=== PATIENT | female | born 1990 | race Caucasian/White ===

== ENCOUNTER 2018-07-01 15:56 | Emergency (ER) | payer SELFPAY ==
[2018-07-01 16:09] VITALS: BP 152/81
--- NOTE | 2018-07-01 16:59 | RADIOLOGY REPORT (SQ) ---
EXAM DESCRIPTION: RIBS RIGHT W/PA CHEST COMPLETED DATE/TIME: 07/01/2018 4:51 pm REASON FOR STUDY: pain previous injury COMPARISON: None. TECHNIQUE: Frontal view of the chest and additional views of the right ribs acquired. NUMBER OF VIEWS: Three view. LIMITATIONS: None. FINDINGS: FRONTAL CXR: No pneumothorax. No pleural effusion. No atelectasis or infiltrates. RIBS: No displaced rib fractures. No lytic or blastic bony lesions. OTHER: No other significant finding. IMPRESSION: NO PNEUMOTHORAX. NO DISPLACED RIB FRACTURES. COMMENT: SITE OF TRAUMA/COMPLAINT MARKED/STAMP COMPLETED: YES. TECHNICAL DOCUMENTATION: JOB ID: [id number] [employer]- All Rights Reserved Reading location - IP/workstation name: [email or web address]
[2018-07-01] MEDS ORDERED: IBUPROFEN 600 MG TABLET PO ONE (17:19)
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
== END 2018-07-01 17:29 | disposition home or self-care (01) ==
LOC: ER 15:56
DX: S20.211A Contusion of right front wall of thorax, initial encounter (principal); R07.81 Pleurodynia; R07.1 Chest pain on breathing; Y08.89XA Assault by other specified means, initial encounter
CPT/HCPCS: 99283

== ENCOUNTER 2018-07-05 18:30 | Emergency (ER) | payer SELFPAY ==
[2018-07-05 18:39] VITALS: BP 124/78
[2018-07-05] MEDS ORDERED: CEFTRIAXONE INJ 250 MG VIAL IM ONE (18:59)
[2018-07-05] MEDS ORDERED: DIPH/PERTUSS(ACELL)/TETANUS VAC/PF 0.5 ML SYR (>=10YO) IM ONE (18:59)
[2018-07-05] MEDS ORDERED: PROMETHAZINE HCL 25 MG TABLET PO ONE (19:00)
[2018-07-05] MEDS ORDERED: AZITHROMYCIN 250 MG TABLET PO ONE (19:00)
[2018-07-05] MEDS ORDERED: LIDOCAINE 1% INJ-PF (10 MG/ML) 30 ML SDV INJ ONE (19:01)
--- NOTE | 2018-07-05 19:02 | ER Document Report ---
HPI - HPI Patient complains to provider of: Finger laceration, concern about STD Time Seen by Provider: 07/05/18 18:51 Onset: Just prior to arrival Onset/Duration: Sudden Quality of pain: Achy Pain Level: 4 Context: Patient states she was slicing avocado and accidentally stabbed her left third finger with a knife. Patient denies any difficulty moving the finger. Patient complains of pain to left third finger. Patient also states that her boyfriend recently cheated on her and she would like to be tested for sexually transmitted infections. Patient states that she would only like to be tested through urinalysis testing. Patient declines pelvic or any blood draw at this time. Patient would like prophylactic treatment for gonorrhea and chlamydia. Patient declines testing or treatment for syphilis. Patient denies any vaginal bleeding or discharge. Patient denies any abnormal skin lesions or rashes. Associated Symptoms: Other - Finger laceration. denies: Fever Exacerbated by: Movement Relieved by: Denies Similar symptoms previously: No Recently seen / treated by doctor: No - ROS ROS below otherwise negative: Yes Systems Reviewed and Negative: Yes All other systems reviewed and negative - CONSTITUTIONAL Constitutional: DENIES: Fever, Chills - NEURO Neurology: DENIES: Weakness - GASTROINTESTINAL Gastrointestinal: DENIES: Abdominal Pain, Nausea, Patient vomiting - URINARY Urinary: DENIES: Dysuria - REPRODUCTIVE Reproductive: DENIES: : - MUSCULOSKELETAL Musculoskeletal: REPORTS: Extremity pain - Left third finger. DENIES: Back Pain - DERM Skin Color: Normal Skin Problems: Laceration Past Medical History - General Information source: Patient - Social History Smoking Status: Never Smoker Frequency of alcohol use: None Drug Abuse: None Family History: Reviewed & Not Pertinent Patient has suicidal ideation: No Patient has homicidal ideation: No Renal/ Medical History: Reports: Hx Ectopic . Denies: Hx Peritoneal Dialysis Past Surgical History: Reports: Hx Appendectomy, Hx Gynecologic Surgery - Removal of ectopic , Hx Tubal Ligation Vertical Provider Document - CONSTITUTIONAL Agree With Documented VS: Yes Exam Limitations: No Limitations General Appearance: WD/WN, No Apparent Distress - INFECTION CONTROL TRAVEL OUTSIDE OF THE [place] IN LAST 30 DAYS: No - HEENT HEENT: Atraumatic, Normocephalic - NECK Neck: Normal Inspection, Supple. negative: Lymphadenopathy-Left, Lymphadenopathy-Right - RESPIRATORY Respiratory: Breath Sounds Normal, No Respiratory Distress - CARDIOVASCULAR Cardiovascular: Regular Rate, Regular Rhythm Pulses: Normal: Radial - GI/ABDOMEN Gastrointestinal: Abdomen Soft, Abdomen Non-Tender - BACK Back: Normal Inspection - MUSCULOSKELETAL/EXTREMETIES Musculoskeletal/Extremeties: MAEW, FROM, Tender - Left third finger tenderness - NEURO Level of Consciousness: Awake, Alert, Appropriate Motor/Sensory: No Motor Deficit, No Sensory Deficit - DERM Integumentary: Warm, Dry, Laceration - 3 mm laceration to the proximal phalanx of left third finger. No tendon deficit, no active bleeding. Wound margins approximated Course - Re-evaluation Re-evalutation: 07/05/18 20:50 Patient continues to decline any pelvic examination or laboratory testing. Patient is requesting to be discharged at this time as her uber is waiting outside. Patient without any tendon deficit. Patient encouraged to follow-up with hand specialist for any persistent pain or problems. Patient advised that gonorrhea chlamydia test results are still pending at this time. Patient was treated prophylactically for both gonorrhea and chlamydia. Patient complains of nausea and prefers to receive prescription for Flagyl to treat for possible exposure to trichomonas at this time. Patient advised of UTI and that urine culture is pending. Patient without any fever or flank pain at this time. No concern for pyelonephritis. Patient nontoxic in appearance and stable for discharge. - Vital Signs Vital signs: Temp Pulse Resp BP Pulse Ox 98.3 F 67 18 124/78 98 07/05/18 18:38 07/05/18 18:38 07/05/18 18:38 07/05/18 18:38 07/05/18 18:38 - Laboratory Laboratory results interpreted by me: 07/05/18 20:33 Labs- Entire Visit 07/05/18 19:31 Urine Color YELLOW Urine Appearance SLIGHTLY-CLOUDY Urine pH 6.0 Ur Specific [place] 1.012 Urine Protein NEGATIVE Urine Glucose (UA) NEGATIVE Urine Ketones NEGATIVE Urine Blood NEGATIVE Urine Nitrite NEGATIVE Urine Bilirubin NEGATIVE Urine Urobilinogen NEGATIVE Ur Leukocyte Esterase LARGE H Urine WBC (Auto) 100 Urine RBC (Auto) 2 U Hyaline Cast (Auto) 1 Urine Bacteria (Auto) TRACE Squamous Epi Cells Auto 8 Urine Ascorbic Acid NEGATIVE Urine HCG, Qual NEGATIVE Discharge - Discharge Clinical Impression: Concern about STD in female without diagnosis Finger laceration Qualifiers: Encounter type: initial encounter Finger: middle finger Damage to nail status: without damage Foreign body presence: without foreign body Laterality: left Qualified Code(s): S61.213A - Laceration without foreign body of left middle finger without damage to nail, initial encounter UTI (urinary tract infection) Qualifiers: Urinary tract infection type: site unspecified Hematuria presence: without hematuria Qualified Code(s): N39.0 - Urinary tract infection, site not specified Condition: Stable Disposition: HOME, SELF-CARE Instructions: Cephalexin ([facility]), Non-Sutured Laceration ([facility]), Care of Steri- Strip Closure ([facility]), Tetanus Immunization Given ([facility]), Urinary Anesthetic Agent ([facility]), Urinary Tract Infection ([facility]) Additional Instructions: Return immediately for any new or worsening symptoms Followup with your primary care provider, call tomorrow to make a followup appointment Urine culture is pending, we will call if you need any different treatment. Cultures are pending, we will call if you need any different treatment Safe sex practices If you decide that you would like to be treated tested for HIV or syphilis you can follow-up with the health department or with your primary doctor. Prescriptions: Cephalexin Monohydrate [Keflex 500 mg Capsule] 500 mg PO Q6H 5 Days capsule Metronidazole [Flagyl 500 mg Tablet] 2,000 mg PO ONCE #4 tablet Phenazopyridine HCl [Pyridium 200 mg Tablet] 200 mg PO TID #15 tablet [facility] - Follow up as needed
[2018-07-05] MEDS: ACETAMINOPHEN 325 MG TABLET PO ONE ×2 (19:13→19:22)
[2018-07-05 20:24] LABS: APPEARANCE,URINE SLIGHTLY-CLOUDY; BILIRUBIN,URINE NEGATIVE (NEGATIVE); COLOR,URINE YELLOW; GLUCOSE, URINE NEGATIVE (NEGATIVE); KETONES,URINE NEGATIVE (NEGATIVE); LEUKOCYTE ESTERASE,URINE LARGE (NEGATIVE); NITRITE,URINE NEGATIVE (NEGATIVE); PROTEIN,URINE NEGATIVE (NEGATIVE); URINE SPECIFIC GRAVITY 1.012; UROBILINOGEN,URINE NEGATIVE mg/dL (<2.0)
[2018-07-05] MEDS ORDERED: METRONIDAZOLE 500 MG TABLET PO ONE (20:33)
[2018-07-05 21:39] LABS: CHLAM PCR DETECTED (NOT DETECT); GON PCR DETECTED (NOT DETECT)
== END 2018-07-05 20:46 | disposition home or self-care (01) ==
LOC: ER 18:30
DX: S61.213A Laceration without foreign body of left middle finger without damage to nail, initial encounter (principal); N39.0 Urinary tract infection, site not specified; Z20.2 Contact with and (suspected) exposure to infections with a predominantly sexual mode of transmission; M79.645 Pain in left finger(s); W26.0XXA Contact with knife, initial encounter
CPT/HCPCS: 99283; 96372; 90471; 81025; 81001; 87491; 87591; 90715; J3490; J0696

== ENCOUNTER 2018-08-01 11:43 | Emergency (ER) | payer OTHER ==
[2018-08-01] MEDS ORDERED: KETOROLAC TROMETHAMINE 60 MG/2 ML SDV IM ONE (15:02)
[2018-08-01] MEDS ORDERED: DEXAMETHASONE SOD PHOS INJ 10 MG/1 ML VIAL IM ONE (15:02)
--- NOTE | 2018-08-01 15:03 | ER Document Report ---
HPI - HPI Time Seen by Provider: 08/01/18 13:24 Pain Level: 5 Notes: Patient is a 28-year-old female presenting to the emergency department with complaints of left sided anterior knee pain. She also reports sharp pains shooting from her knee down to her ankle. She denies any direct trauma to the area. She was seen here for the same complaint 2 days ago and encouraged to follow-up with Orth [facility] if not improving. Patient reports she has been taking ibuprofen however she states that does not work for her and she needs something stronger. Patient also states that she did try calling orthopedics and they want $400 to see her and that she would like us to be her follow-up. Patient ambulated into the emergency department with a slow but steady gait. - CONSTITUTIONAL Constitutional: DENIES: Fever, Chills - EENT EENT: DENIES: Sore Throat, Ear Pain, Eye problems - NEURO Neurology: DENIES: Headache, Weakness, Vision blurred, Dizzinesss / Vertigo - CARDIOVASCULAR Cardiovascular: DENIES: Chest pain - RESPIRATORY Respiratory: DENIES: Trouble Breathing, Coughing - GASTROINTESTINAL Gastrointestinal: DENIES: Abdominal Pain, Black / Bloody Stools - URINARY Urinary: DENIES: Dysuria, Urgency, Frequency - REPRODUCTIVE Reproductive: DENIES: :, Postmenopausal, Abnormal bleeding / discharge - MUSCULOSKELETAL Musculoskeletal: REPORTS: Extremity pain - Left knee and foot Past Medical History - General Information source: Patient - Social History Smoking Status: Never Smoker Family History: Reviewed & Not Pertinent Patient has suicidal ideation: No Patient has homicidal ideation: No Renal/ Medical History: Reports: Hx Ectopic . Denies: Hx Peritoneal Dialysis Past Surgical History: Reports: Hx Appendectomy, Hx Gynecologic Surgery - Removal of ectopic , Hx Tubal Ligation Vertical Provider Document - CONSTITUTIONAL Notes: PHYSICAL EXAMINATION: GENERAL: Well-appearing, well-nourished and in no acute distress. HEAD: Atraumatic, normocephalic. EYES: Pupils equal round extraocular movements intact, conjunctiva are normal. ENT: Nares patent NECK: Normal range of motion LUNGS: No respiratory distress Musculoskeletal: Limited range of motion to left knee due to pain however musa schrader is able to fully extend the knee. She has normal pulses in that extremity, normal cap refill and normal sensation distal to her knee. There is slight crepitus felt on palpation of the anterior knee but no obvious deformity, erythema or ecchymosis. There is no swelling. NEUROLOGICAL: Normal speech, normal gait. PSYCH: Normal mood, normal affect. SKIN: Warm, Dry, normal turgor, no rashes or lesions noted. - INFECTION CONTROL TRAVEL OUTSIDE OF THE [place] IN LAST 30 DAYS: No Course - Re-evaluation Re-evalutation: Patient does have some crepitus on palpation of the anterior left knee. There is no obvious trauma to the area there is no erythema, ecchymosis or heat to the area. Unlikely that this is any type of life-threatening etiology such as a septic joint. Patient reports the pain is increased with any movement of her knee so we will place the patient in a knee immobilizer. She was encouraged to follow-up with either orthopedics, [facility] or sports medicine doctor. I did give her several different contacts that she can try to follow-up with. I did also assist her with filling out the paperwork for the critical access hospital. - Vital Signs Vital signs: Temp Pulse Resp BP Pulse Ox 98.1 F 56 L 18 115/71 100 08/01/18 12:15 08/01/18 12:15 08/01/18 12:15 08/01/18 12:15 08/01/18 12:15 Procedures - Immobilization Left leg Pre-Proc Neuro Vasc Exam: Normal Immobilizer type: Crutches, Knee immobilizer Performed by: Provider, PCT Post-Proc Neuro Vasc Exam: Normal Alignment checked and good: Yes Discharge - Discharge Clinical Impression: Left foot pain Left knee pain Qualifiers: Chronicity: acute Qualified Code(s): M25.562 - Pain in left knee Condition: Stable Disposition: HOME, SELF-CARE Instructions: Suspected Internal Knee Injury ([facility]), Knee Immobilizing Splint ([facility]) Additional Instructions: Please take medication as prescribed. Do not take Motrin or ibuprofen while taking this medication. You may safely take acetaminophen or Tylenol with this medication. Ice and elevate your knee. Use the knee immobilizer anytime you have to move around. Use the crutches as discussed. Please follow-up with either orthopedics or the critical access hospital for consideration of an MRI if your pain persists in the knee. We are unable to do an MRI here in the emergency department for this as this is not a life-threatening situation. It is important that you follow-up with either primary care or an field talent qualification specialist. Prescriptions: Ketorolac Tromethamine [Toradol 10 mg Tablet] 10 mg PO Q6HP PRN #20 tablet PRN Reason: Referrals: ARNOLD FAY DO [ACTIVE STAFF] - Follow up as needed [facility] [Outside] - Follow up as needed
[2018-08-01 15:57] VITALS: BP 105/65
== END 2018-08-01 16:08 | disposition home or self-care (01) ==
LOC: ER 11:43
DX: M25.562 Pain in left knee (principal); M25.572 Pain in left ankle and joints of left foot
CPT/HCPCS: 99283; 96372; L1830; J1885; J1100

== ENCOUNTER 2018-09-09 13:37 | Emergency (ER) | payer SELFPAY ==
[2018-09-09] MEDS ORDERED: NORMAL SALINE 1000 ML 1,000 ML IV PRN (14:33)
[2018-09-09] MEDS ORDERED: ONDANSETRON HCL INJ/PF 4 MG/2 ML SDV IV ONE (14:33)
--- NOTE | 2018-09-09 14:39 | ER Document Report ---
Addendum entered and electronically signed by ALFONSO TRAORE PA-C 09/09/18 14:45: Course - Re-evaluation Re-evalutation: 09/09/18 14:44 Pt does not feel 'like herself.' - Vital Signs Vital signs: Temp Pulse Resp BP Pulse Ox 98.1 F 70 20 133/89 H 100 09/09/18 14:09 09/09/18 14:09 09/09/18 14:09 09/09/18 14:09/09/18 14:09 Original Note: ED Medical Screen (RME) - General Chief Complaint: ETOH Abuse Stated Complaint: DIZZINESS Time Seen by Provider: 09/09/18 14:29 TRAVEL OUTSIDE OF THE [place] IN LAST 30 DAYS: No - HPI Notes: 09/09/18 14:34 Patient is a 28-year-old female no significant past medical history who presents complaining of feeling dizzy, nausea/vomiting, migraine headache after drinking about 8 shots of whiskey yesterday. Last drink was around 8 PM last night. Patient has needed some assistance with walking on occasion because of instability. Denies drug allergies or other drug use. Denies fever, neck pain, URI, CP, SOB, Abd pain, dysuria, back pain, or rash. I have treated and performed a rapid initial assessment of this patient. A comprehensive ED assessment and evaluation of the patient, analysis of test results and completion of medical decision making process will be conducted by additional ED providers. PHYSICAL EXAMINATION: GENERAL: Well-appearing, well-nourished and in no acute distress. A&O. Answers questions appropriately. HEAD: Atraumatic, normocephalic. Non-tender. EYES: Pupils equal round and reactive to light, extraocular movements intact, sclera anicteric, conjunctiva are normal. No nystagmus. NECK: Normal range of motion, supple without lymphadenopathy. No rig idity/meningismus. No midline tenderness. LUNGS: Breath sounds clear to auscultation bilaterally and equal. No wheezes rales or rhonchi. HEART: Regular rate and rhythm without murmurs, rubs, gallops. ABDOMEN: Soft, nontender, nondistended abdomen. No guarding, no rebound. Normal bowel sounds present. No CVA tenderness bilaterally. Musculoskeletal: Ext b/l: FROM to passive/active. Strength 5+/5. No deficits noted. Extremities: No cyanosis, clubbing, or edema b/l. Peripheral pulses 2+. Capillary refill less than 2 seconds. NEUROLOGICAL: GCS 15. Cranial nerves grossly intact. Normal speech, slightly ataxic gait. Pronator drift negative. Heel/salazar, finger/nose wnl. PSYCH: flat affect. SKIN: Warm, Dry, normal turgor, no rashes or lesions noted. - Related Data Allergies/Adverse Reactions: No Known Allergies Allergy (Verified 07/30/18 17:46) Past Medical History - Social History Frequency of alcohol use: Social Drug Abuse: None Renal/ Medical History: Reports: Hx Ectopic . Denies: Hx Peritoneal Dialysis Past Surgical History: Reports: Hx Appendectomy, Hx Gynecologic Surgery - Removal of ectopic , Hx Tubal Ligation Physical Exam - Vital signs Vitals: Temp Pulse Resp BP Pulse Ox 98.1 F 70 20 133/89 H 100 09/09/18 14:09 09/09/18 14:09/09/18 14:09/09/18 14:09/09/18 14:09 Course - Vital Signs Vital signs: Temp Pulse Resp BP Pulse Ox 98.1 F 70 20 133/89 H 100 09/09/18 14:09/09/18 14:09/09/18 14:09/09/18 14:09/09/18 14:09
[2018-09-09 15:37] LABS: ABSOLUTE LYMPHOCYTES (AUTO) 2.2 10^3/uL (0.5-4.7); ABSOLUTE MONOCYTES (AUTO) 0.7 10^3/uL (0.1-1.4); ABSOLUTE NEUT (AUTO) 7.5 10^3/uL (1.7-8.2); BASOPHILS % (AUTO) 0.5 % (0-2); EOSINOPHILS % (AUTO) 0.3 % (0-6); HEMATOCRIT 44.6 % (36.0-47.0); HEMOGLOBIN 15.5 g/dL (12.0-15.5); MEAN CORPUSCULAR HEMOGLOBIN 29.9 pg (27.0-33.4); MEAN CORPUSCULAR HGB CONC 34.7 g/dL (32.0-36.0); MEAN CORPUSCULAR VOLUME 86 fl (80-97); PLATELET COUNT 257 10^3/uL (150-450); RED BLOOD COUNT 5.17 10^6/uL (3.72-5.28); RED CELL DISTRIBUTION WIDTH 12.4 % (11.5-14.0); SEGMENTED NEUTROPHILS % (AUTO) 71.2 % (42-78); TOTAL CELLS COUNTED % (AUTO) 100 %; WHITE BLOOD COUNT 10.5 10^3/uL (4.0-10.5)
[2018-09-09 15:47] LABS: APPEARANCE,URINE CLOUDY; BILIRUBIN,URINE NEGATIVE (NEGATIVE); GLUCOSE, URINE NEGATIVE (NEGATIVE); KETONES,URINE 20 mg/dL (NEGATIVE); LEUKOCYTE ESTERASE,URINE TRACE (NEGATIVE); NITRITE,URINE NEGATIVE (NEGATIVE); PROTEIN,URINE NEGATIVE (NEGATIVE); URINE SPECIFIC GRAVITY 1.025; UROBILINOGEN,URINE NEGATIVE mg/dL (<2.0)
[2018-09-09 15:48] LABS: COLOR,URINE YELLOW
[2018-09-09 15:58] LABS: ALANINE AMINOTRANSFERASE 23 U/L (9-52); ALBUMIN 5.1 g/dL (3.5-5.0); ALKALINE PHOSPHATASE 120 U/L (38-126); ANION GAP 14 (5-19); ASPARTATE AMINO TRANSFERASE 30 U/L (14-36); BILIRUBIN,DIRECT 0.2 mg/dL (0.0-0.4); BILIRUBIN,TOTAL 0.7 mg/dL (0.2-1.3); BLOOD UREA NITROGEN 21 mg/dL (7-20); CALCIUM 10.2 mg/dL (8.4-10.2); CARBON DIOXIDE 27 mmol/L (22-30); CHLORIDE 102 mmol/L (98-107); LIPASE 41.4 U/L (23-300); POTASSIUM 4.9 mmol/L (3.6-5.0); SODIUM 142.5 mmol/L (137-145); TOTAL PROTEIN 8.3 g/dL (6.3-8.2)
[2018-09-09 16:03] LABS: ALCOHOL < 10 mg/dL (NONE DETECTED)
[2018-09-09 16:04] LABS: GLUCOSE 69 mg/dL (75-110)
[2018-09-09 16:33] VITALS: BP 114/65
[2018-09-09] MEDS ORDERED: ONDANSETRON 4 MG TAB.RAPDIS PO ONE (16:36)
--- NOTE | 2018-09-09 17:26 | ER Document Report ---
ED General - General Chief Complaint: ETOH Abuse Stated Complaint: DIZZINESS Time Seen by Provider: 09/09/18 14:29 TRAVEL OUTSIDE OF THE [place] IN LAST 30 DAYS: No - HPI Notes: Patient is a 28-year-old female who presents to the emergency department for evaluation. She states that last night she "chugged" some whiskey. She states she was just depressed. She denies that she was suicidal. She denies any homicidal ideation. She denies any visual or auditory nation. She states that "something stressful" happened about a year ago and she is still depressed from it. She admits to a history of self-injurious behavior. She states that 3 weeks ago she cut her left forearm again. At this time she states she does not want any further psychiatric help. She states that she has a support system. She does admit to a headache, and just "not feeling myself." She was alone while she was drinking. - Related Data Allergies/Adverse Reactions: No Known Allergies Allergy (Verified 07/30/18 17:46) Past Medical History - General Information source: Patient - Social History Smoking Status: Current Every Day Smoker Frequency of alcohol use: Social Drug Abuse: None Family History: Reviewed & Not Pertinent Patient has suicidal ideation: No Patient has homicidal ideation: No Renal/ Medical History: Reports: Hx Ectopic . Denies: Hx Peritoneal Dialysis Past Surgical History: Reports: Hx Appendectomy, Hx Gynecologic Surgery - Removal of ectopic , Hx Tubal Ligation Review of Systems - Review of Systems Constitutional: No symptoms reported EENT: No symptoms reported Cardiovascular: No symptoms reported Respiratory: No symptoms reported Gastrointestinal: See HPI Genitourinary: No symptoms reported Female Genitourinary: No symptoms reported Musculoskeletal: No symptoms reported Skin: No symptoms reported Neurological/Psychological: See HPI Physical Exam - Vital signs Vitals: Temp Pulse Resp BP Pulse Ox 98.1 F 70 20 133/89 H 100 09/09/18 14:09/09/18 14:09/09/18 14:09/09/18 14:09/09/18 14:09 - Notes Notes: Vital signs reviewed, please refer to chart. Head is normocephalic, atraumatic. Pupils equal round, reactive to light. Neck is supple without meningismus. Heart is regular rate and rhythm. Lungs are clear to auscultation bilaterally. Abdomen is soft, nontender, normoactive bowel sounds throughout. Extremities without cyanosis, clubbing. Posterior calves are nontender. Peripheral pulses are equal. Skin is warm and dry. She does have a linear, self-inflicted superficial lacerations to the left forearm. There are well-healing, no signs of dehiscence or infection. Patient is awake, alert, oriented x3. Cranial nerves II - XII are grossly intact without focal neurological deficits. Strength is plus 5 out of 5 bilateral lower extremities. Sensation is intact. Reflexes symmetrical. Intact [id number], rapid altering movements, [id number]. Course - Re-evaluation Re-evalutation: 09/09/18 17:17 Patient presents to the emergency department for evaluation after a heavy night of drinking. She states she has a headache, has been nauseous and vomiting, just does not feel herself. She admits to depression. She denies any suicidality. I do not believe she meets any criteria for inpatient hospitalization at this time. I will can refer her to outpatient. Unfortunately her IV did infiltrate, but she was feeling significantly improved after a small amount of fluids. She is given a paper with outpatient referrals for mental health. We will send her home with Jose as well. She is to return the emergency department with worsening or new concerning symptoms of any sort. - Vital Signs Vital signs: Temp Pulse Resp BP Pulse Ox 98.1 F 75 20 114/65 100 09/09/18 14:09 09/09/18 16:31 09/09/18 14:09 09/09/18 16:31 09/09/18 14:09 - Laboratory Result Diagrams: 09/09/18 15:17 09/09/18 15:17 Laboratory results interpreted by me: 09/09/18 09/09/18 15:17 15:17 BUN 21 H Glucose 69 L Total Protein 8.3 H Albumin 5.1 H Urine Ketones 20 H Urine Blood LARGE H Ur Leukocyte Esterase TRACE H Discharge - Discharge Clinical Impression: Alcohol abuse Depression Qualifiers: Depression Type: major depressive disorder Major depression recurrence: recurrent Active/Remission status: currently active Major depression episode severity: moderate Qualified Code(s): F33.1 - Major depressive disorder, recurrent, moderate Nausea & vomiting Qualifiers: Vomiting Intractability: non-intractable Condition: Stable Disposition: HOME, SELF-CARE Instructions: Antinausea Medication ([facility]), Intravenous (IV) Fluids ([facility]) Additional Instructions: Rest and stay well-hydrated. Consider follow-up with 1 of the outpatient mental health services in the community. Zofran as needed for nausea. If you develop worsening or new concerning symptoms of any sort, return immediately to the emergency department for reevaluation.
[2018-09-09 17:34] LABS: URINE AMPHETAMINES SCREEN NEGATIVE; URINE BARBITURATES SCREEN NEGATIVE; URINE BENZODIAZEPINES SCREEN NEGATIVE; URINE COCAINE SCREEN NEGATIVE; URINE MARIJUANA (THC) SCREEN NEGATIVE; URINE METHADONE SCREEN NEGATIVE; URINE PHENCYCLIDINE SCREEN NEGATIVE
== END 2018-09-09 20:08 | disposition home or self-care (01) ==
LOC: ER 13:37
DX: F10.10 Alcohol abuse, uncomplicated (principal); F33.1 Major depressive disorder, recurrent, moderate; S51.812A Laceration without foreign body of left forearm, initial encounter; X78.9XXA Intentional self-harm by unspecified sharp object, initial encounter; R51 Headache; R11.2 Nausea with vomiting, unspecified; F17.200 Nicotine dependence, unspecified, uncomplicated
CPT/HCPCS: 99283; 96361; 96374; 36415; 80307 ×2; 83690; 83735; 85025; 81025; 80053; 81001; S0119; J2405; J7030

== ENCOUNTER 2018-09-14 11:30 | Emergency (ER) | payer SELFPAY ==
--- NOTE | 2018-09-14 13:18 | ER Document Report ---
ED General - General Chief Complaint: Neck Swelling Stated Complaint: SORE THROAT, SWELLING Time Seen by Provider: 09/14/18 12:06 Notes: 28-year-old female with probable depression presents the emergency department with chief complaint of tender anterior cervical lymph nodes bilateral and right upper quadrant pain. She said the lymph nodes started after her binge drinking this past weekend where she was seen here. Also, the right upper quadrant pain started over the last day and a half. She denies fevers or chills, denies nausea or vomiting, denies diarrhea or constipation. She denies shortness of breath or chest pain. She says her appetite is been normal. She states that the painful lymph nodes are severe and is radiating into her bilateral ears. She describes the right upper quadrant pain as an intense burning. No other co mplaints. TRAVEL OUTSIDE OF THE [place] IN LAST 30 DAYS: No - Related Data Allergies/Adverse Reactions: No Known Allergies Allergy (Verified 07/30/18 17:46) Past Medical History - Social History Smoking Status: Unknown if Ever Smoked Chew tobacco use (# tins/day): No Frequency of alcohol use: Social Drug Abuse: None Family History: Reviewed & Not Pertinent Patient has suicidal ideation: No Patient has homicidal ideation: No Renal/ Medical History: Reports: Hx Ectopic . Denies: Hx Peritoneal Dialysis Past Surgical History: Reports: Hx Appendectomy, Hx Gynecologic Surgery - Removal of ectopic , Hx Tubal Ligation Review of Systems - Review of Systems Constitutional: See HPI EENT: See HPI Cardiovascular: See HPI Respiratory: See HPI Gastrointestinal: See HPI Genitourinary: See HPI Female Genitourinary: No symptoms reported Musculoskeletal: No symptoms reported Skin: No symptoms reported Hematologic/Lymphatic: No symptoms reported Neurological/Psychological: No symptoms reported Physical Exam - Vital signs Vitals: Temp Pulse Resp BP Pulse Ox 98.2 F 72 12 103/66 100 09/14/18 11:34 09/14/18 11:34 09/14/18 11:34 09/14/18 11:34 09/14/18 11:34 - Notes Notes: PHYSICAL EXAMINATION: Reviewed vital signs and charting by RN GENERAL: Alert, interacts well. No acute distress. HEAD: Normocephalic, atraumatic. EYES: Pupils equal and round. Extraocular movements intact. ENT: Oral mucosa moist, tongue midline. NECK: Full range of motion. Trachea midline. LUNGS: Clear to auscultation bilaterally, no wheezes, rales, or rhonchi. No respiratory distress. HEART: Regular rate and rhythm. No murmur ABDOMEN: soft, right upper quadrant tenderness to palpation, positive Henson sign. No distention. Bowel sounds present EXTREMITIES: Moves all 4 extremities spontaneously. No edema, No cyanosis. PSYCH: Normal affect, normal mood. SKIN: Warm, dry, normal turgor. No rashes or lesions noted. Course - Re-evaluation Re-evalutation: 09/14/18 13:18 Overall well-appearing but patient does have significant anterior cervical lym phadenopathy bilateral and 2+ tonsillar hypertrophy with erythema. She also has a positive Hesnon sign so I will initiate a basic work-up and get a right upper quadrant ultrasound with a Monospot added to the strep and labs. 09/14/18 14:29 Patient has a positive rapid strep. Presentation of several days of sore throat in an otherwise well-appearing patient. History and exam are not consistent with a retropharyngeal abscess or peritonsillar abscess. Airway is patent. No difficulty handling oral secretions. Vitals within normal limits. Patient has been treated with an IM dose of penicillin. At this time will discharge with return precautions and follow-up recommendations. Verbal discharge instructions given a the bedside and opportunity for questions given. Medication warnings reviewed. Patient is in agreement with this plan and has verbalized understanding of return precautions and the need for primary care follow-up in the next 7 days. 09/14/18 14:31 - Vital Signs Vital signs: Temp Pulse Resp BP Pulse Ox 98.2 F 72 12 103/66 100 09/14/18 11:34 09/14/18 11:34 09/14/18 11:34 09/14/18 11:34 09/14/18 11:34 - Laboratory Result Diagrams: 09/14/18 13:20 09/14/18 13:20 Discharge - Discharge Clinical Impression: Streptococcal pharyngitis Condition: Good Disposition: HOME, SELF-CARE Additional Instructions: You have been diagnosed with strep throat based on a positive strep test. You have been treated with a dose of penicillin here in the emergency department and do not need any additional antibiotics. You have also been given a dose of steroids to help with your throat discomfort. Please continue to take ibuprofen 600 mg every 6 hours or Tylenol 1000 mg every 6 hours as needed for throat discomfort. You can also gargle with salt water. Continue to drink plenty of fluids. Follow-up with your primary care doctor in the next several days. Return if you become unable to swallow, have difficulty breathing, pass out, have persistent vomiting that prevents you from being able to tolerate fluids, or have any other symptoms that are concerning to you.
[2018-09-14 13:27] LABS: ABSOLUTE BASOPHILS # (AUTO) 0.1 10^3/uL (0.0-0.2); ABSOLUTE EOSINOPHILS # (AUTO) 0.1 10^3/uL (0.0-0.6); ABSOLUTE LYMPHOCYTES (AUTO) 2.1 10^3/uL (0.5-4.7); ABSOLUTE MONOCYTES (AUTO) 0.9 10^3/uL (0.1-1.4); ABSOLUTE NEUT (AUTO) 6.5 10^3/uL (1.7-8.2); BASOPHILS % (AUTO) 0.6 % (0-2); EOSINOPHILS % (AUTO) 1.1 % (0-6); HEMATOCRIT 38.1 % (36.0-47.0); HEMOGLOBIN 13.3 g/dL (12.0-15.5); LYMPHOCYTES % (AUTO) 21.8 % (13-45); MEAN CORPUSCULAR HGB CONC 34.9 g/dL (32.0-36.0); MEAN CORPUSCULAR VOLUME 86 fl (80-97); MONOCYTES % (AUTO) 9.4 % (3-13); PLATELET COUNT 253 10^3/uL (150-450); RED BLOOD COUNT 4.43 10^6/uL (3.72-5.28); RED CELL DISTRIBUTION WIDTH 12.2 % (11.5-14.0); SEGMENTED NEUTROPHILS % (AUTO) 67.1 % (42-78); TOTAL CELLS COUNTED % (AUTO) 100 %; WHITE BLOOD COUNT 9.7 10^3/uL (4.0-10.5)
[2018-09-14 13:44] LABS: ALANINE AMINOTRANSFERASE 19 U/L (9-52); ALBUMIN 4.1 g/dL (3.5-5.0); ALKALINE PHOSPHATASE 98 U/L (38-126); ANION GAP 10 (5-19); ASPARTATE AMINO TRANSFERASE 23 U/L (14-36); BILIRUBIN,DIRECT 0.2 mg/dL (0.0-0.4); BILIRUBIN,TOTAL 0.3 mg/dL (0.2-1.3); BLOOD UREA NITROGEN 7 mg/dL (7-20); CALCIUM 9.6 mg/dL (8.4-10.2); CARBON DIOXIDE 28 mmol/L (22-30); CHLORIDE 103 mmol/L (98-107); GLUCOSE 84 mg/dL (75-110); POTASSIUM 4.6 mmol/L (3.6-5.0); SODIUM 140.5 mmol/L (137-145); TOTAL PROTEIN 6.9 g/dL (6.3-8.2)
--- NOTE | 2018-09-14 15:08 | RADIOLOGY REPORT (SQ) ---
EXAM DESCRIPTION: U/S ABDOMEN LTD W/DOPPLER COMPLETED DATE/TIME: 09/14/2018 3:00 pm REASON FOR STUDY: RUQ pain COMPARISON: None. TECHNIQUE: Dynamic and static grayscale images acquired of the abdomen and recorded on PACS. Additio nal selected color Doppler and spectral images recorded. LIMITATIONS: None. FINDINGS: PANCREAS: No masses. Visualized pancreatic duct normal caliber. LIVER: Normal size Echo texture normal. No focal masses. LIVER VASCULATURE: Normal directional flow of the main portal vein and hepatic veins. GALLBLADDER: No stones. Normal wall thickness. No pericholecystic fluid. ULTRASOUND-DETECTED FERRER'S SIGN: Negative. INTRAHEPATIC DUCTS AND COMMON DUCT: CBD and intrahepatic ducts normal caliber. No filling defects. INFERIOR VENA CAVA: Normal flow. AORTA: No aneurysm. RIGHT KIDNEY: Normal size. Normal echogenicity. No solid or suspicious masses. No hydronephros is. No calcifications. PERITONEAL AND RIGHT PLEURAL SPACE: No ascites or effusions. OTHER: No other significant findings. IMPRESSION: NORMAL RIGHT UPPER QUADRANT ULTRASOUND VISUALIZED. TECHNICAL DOCUMENTATION: JOB ID: [id number] [employer]- All Rights Reserved Reading location - IP/workstation name: [email or web address]
[2018-09-14] MEDS ORDERED: NYSTATIN/DEXAMETH/DIPHEN SUSP 120 ML PO ONE (15:16)
[2018-09-14] MEDS ORDERED: PENICILLIN G BENZATHINE 1.2 MILLION UNIT/2 ML DISP.SYRIN IM ONE (15:16)
[2018-09-14] MEDS ORDERED: DEXAMETHASONE SOD PHOS INJ 10 MG/1 ML VIAL IM ONE (15:16)
[2018-09-14 16:01] VITALS: BP 109/65
== END 2018-09-14 16:01 | disposition home or self-care (01) ==
LOC: ER 11:30
DX: J02.0 Streptococcal pharyngitis (principal); R10.11 Right upper quadrant pain; R10.811 Right upper quadrant abdominal tenderness; Z90.49 Acquired absence of other specified parts of digestive tract; Z87.59 Personal history of other complications of pregnancy, childbirth and the puerperium; Z98.51 Tubal ligation status
CPT/HCPCS: 99283; 96372; 36415; 87880; 85025; 86308; 80053; 76705; 93976; J0561; J1100; J3490

== ENCOUNTER 2018-09-22 16:45 | Emergency (ER) | payer SELFPAY ==
--- NOTE | 2018-09-22 17:58 | ER Document Report ---
ED Medical Screen (RME) - General Chief Complaint: Abdominal Pain Stated Complaint: RIGHT SIDE PAIN Time Seen by Provider: 09/22/18 17:54 Notes: 28-year-old female presents to the emergency department with chief complaint of right flank pain since yesterday. She states pain came on abruptly and is stabbing in nature, it radiates to what appears to be the right hypochondriac in the right lumbar quadrants of the abdomen. She had a T-max of 101.4 at home earlier today, current temp 99. She has associated nausea that started today and is persisting. Denies any recent illness. Also complains of urinary frequency, dysuria, urgency. Denies shortness of breath or chest pain. Denies any abnormal vaginal discharge. Denies diarrhea or constipation. No other complaints. I have greeted and performed a rapid initial assessment of this patient. A comprehensive ED assessment and evaluation of the patient, analysis of test results and completion of medical decision making process will be conducted by an additional ED providers. TRAVEL OUTSIDE OF THE [place] IN LAST 30 DAYS: No - Related Data Allergies/Adverse Reactions: No Known Allergies Allergy (Verified 09/22/18 16:47) Past Medical History Renal/ Medical History: Reports: Hx Ectopic . Denies: Hx Peritoneal Dialysis Past Surgical History: Reports: Hx Appendectomy, Hx Gynecologic Surgery - Removal of ectopic , Hx Tubal Ligation Physical Exam - Vital signs Vitals: Temp Pulse Resp BP Pulse Ox 99 F 90 18 128/75 H 97 09/22/18 16:50 09/22/18 16:50 09/22/18 16:50 09/22/18 16:50 09/22/18 16:50 - Notes Notes: PHYSICAL EXAMINATION: Reviewed vital signs and charting by RN GENERAL: Alert, interacts well. No acute distress. HEAD: Normocephalic, atraumatic. EYES: Pupils equal and round. Extraocular movements intact. ENT: Oral mucosa moist, tongue midline. NECK: Full range of motion. Trachea midline. LUNGS: Clear to auscultation bilaterally, no wheezes, rales, or rhonchi. No respiratory distress. HEART: Regular rate and rhythm. No murmur ABDOMEN: Examination limited in triage room patient with right-sided tenderness to palpation BACK: Right CVAT EXTREMITIES: Moves all 4 extremities spontaneously. No edema, No cyanosis. PSYCH: Normal affect, normal mood. SKIN: Warm, dry, normal turgor. No rashes or lesions noted. Course - Vital Signs Vital signs: Temp Pulse Resp BP Pulse Ox 99 F 90 18 128/75 H 97 09/22/18 16:50 09/22/18 16:50 09/22/18 16:50 09/22/18 16:50 09/22/18 16:50
[2018-09-22] MEDS ORDERED: ONDANSETRON HCL INJ/PF 4 MG/2 ML SDV IV ONE (17:59)
[2018-09-22] MEDS ORDERED: ACETAMINOPHEN 325 MG TABLET PO ONE (17:59)
[2018-09-22 19:00] LABS: ABSOLUTE LYMPHOCYTES (AUTO) 1.4 10^3/uL (0.5-4.7); ABSOLUTE NEUT (AUTO) 13.9 10^3/uL (1.7-8.2); BASOPHILS % (AUTO) 0.2 % (0-2); EOSINOPHILS % (AUTO) 0.2 % (0-6); HEMOGLOBIN 14.8 g/dL (12.0-15.5); LYMPHOCYTES % (AUTO) 8.5 % (13-45); MEAN CORPUSCULAR HEMOGLOBIN 29.4 pg (27.0-33.4); MEAN CORPUSCULAR HGB CONC 34.5 g/dL (32.0-36.0); MEAN CORPUSCULAR VOLUME 85 fl (80-97); MONOCYTES % (AUTO) 6.1 % (3-13); PLATELET COUNT 276 10^3/uL (150-450); RED BLOOD COUNT 5.05 10^6/uL (3.72-5.28); RED CELL DISTRIBUTION WIDTH 12.4 % (11.5-14.0); TOTAL CELLS COUNTED % (AUTO) 100 %; WHITE BLOOD COUNT 16.3 10^3/uL (4.0-10.5)
[2018-09-22 19:09] LABS: AMORPHOUS SEDIMENT,URINE TRACE /HPF; APPEARANCE,URINE CLOUDY; BILIRUBIN,URINE NEGATIVE (NEGATIVE); COLOR,URINE YELLOW; GLUCOSE, URINE NEGATIVE (NEGATIVE); KETONES,URINE NEGATIVE (NEGATIVE); LEUKOCYTE ESTERASE,URINE MODERATE (NEGATIVE); NITRITE,URINE POSITIVE (NEGATIVE); PROTEIN,URINE NEGATIVE (NEGATIVE); URINE SPECIFIC GRAVITY 1.016; UROBILINOGEN,URINE NEGATIVE mg/dL (<2.0)
[2018-09-22 19:15] LABS: ALANINE AMINOTRANSFERASE 20 U/L (9-52); ALBUMIN 4.8 g/dL (3.5-5.0); ALKALINE PHOSPHATASE 100 U/L (38-126); ANION GAP 10 (5-19); ASPARTATE AMINO TRANSFERASE 22 U/L (14-36); BILIRUBIN,DIRECT 0.2 mg/dL (0.0-0.4); BILIRUBIN,TOTAL 0.9 mg/dL (0.2-1.3); BLOOD UREA NITROGEN 12 mg/dL (7-20); CALCIUM 9.9 mg/dL (8.4-10.2); CARBON DIOXIDE 28 mmol/L (22-30); CHLORIDE 101 mmol/L (98-107); GLUCOSE 87 mg/dL (75-110); LIPASE 45.7 U/L (23-300); POTASSIUM 4.4 mmol/L (3.6-5.0); TOTAL PROTEIN 7.7 g/dL (6.3-8.2)
[2018-09-22] MEDS ORDERED: NORMAL SALINE 1000 ML 1,000 ML IV ONE (21:40)
[2018-09-22] MEDS ORDERED: KETOROLAC TROMETHAMINE INJ/PF 30 MG/1 ML SDV IV ONE (21:40)
[2018-09-22] MEDS ORDERED: LIDOCAINE 5% (700 MG) TRANSDERMAL ADH..PATCH TP ONE (21:40)
[2018-09-22] MEDS: FENTANYL CITRATE INJ/PF 100 MCG/2 ML AMPUL IV PRN (21:52)
--- NOTE | 2018-09-22 22:09 | ER Document Report ---
ED General - General Chief Complaint: Abdominal Pain Stated Complaint: RIGHT SIDE PAIN Time Seen by Provider: 09/22/18 17:54 Notes: Patient is a 28-year-old female without chronic medical problems, no prior abdominal surgical presents with complaints of 24 hours of progressively worsening right upper abdominal and right flank pain as well as pain in her right lower ribs. Describes the pain is being a throbbing, aching, constant pain. Worsened by breathing, coughing or touching the area. Nothing improves the pain. No history of similar symptoms in the past. Regards symptoms as being moderate to severe. Has had subjective fever, nausea but no vomiting. Notes urinary frequency but no dysuria. Has not seen her primary care physician regarding today's concerns. Denies associated shortness of breath, headache, neck pain or confusion. TRAVEL OUTSIDE OF THE [place] IN LAST 30 DAYS: No - Related Data Allergies/Adverse Reactions: No Known Allergies Allergy (Verified 09/22/18 16:47) Past Medical History - General Information source: Patient - Social History Smoking Status: Never Smoker Frequency of alcohol use: None Drug Abuse: None Lives with: Spouse/Significant other Family History: Reviewed & Not Pertinent Patient has suicidal ideation: No Patient has homicidal ideation: No Renal/ Medical History: Reports: Hx Ectopic . Denies: Hx Peritoneal Dialysis Past Surgical History: Reports: Hx Appendectomy, Hx Gynecologic Surgery - Removal of ectopic , Hx Tubal Ligation Review of Systems - Review of Systems Notes: Constitutional: Negative for fever. HENT: Negative for sore throat. Eyes: Negative for visual changes. Cardiovascular: Negative for chest pain. Respiratory: Negative for shortness of breath. Gastrointestinal: Positive for upper abdominal pain, right flank pain, nausea Genitourinary: Negative for dysuria. Musculoskeletal: Negative for back pain. Skin: Negative for rash. Neurological: Negative for headaches, weakness or numbness. 10 point ROS negative except as marked above and in HPI. Physical Exam - Vital signs Vitals: Temp Pulse Resp BP Pulse Ox 99 F 90 18 128/75 H 97 09/22/18 16:50 09/22/18 16:50 09/22/18 16:50 09/22/18 16:50 09/22/18 16:50 Interpretation: Normal Notes: PHYSICAL EXAMINATION: GENERAL: Appears moderately uncomfortable but in no acute distress HEAD: Atraumatic, normocephalic. EYES: Pupils equal round and reactive to light, extraocular movements intact, sclera anicteric, conjunctiva are normal. ENT: nares patent, oropharynx clear without exudates. Moist mucous membranes. NECK: Normal range of motion, supple without lymphadenopathy LUNGS: Breath sounds clear to auscultation bilaterally and equal. No wheezes rales or rhonchi. HEART: Regular rate and rhythm without murmurs ABDOMEN: Soft, mild right upper quadrant and right flank tenderness. No localized areas of abdominal tenderness., normoactive bowel sounds. No guarding, no rebound. No masses appreciated. EXTREMITIES: Normal range of motion, no pitting or edema. No cyanosis. NEUROLOGICAL: No focal neurological deficits. Moves all extremities spontaneously and on command. PSYCH: Normal mood, normal affect. SKIN: Warm, Dry, normal turgor, no rashes or lesions noted. Course - Re-evaluation Re-evalutation: 09/22/18 22:07 Patient presents with right upper quadrant abdominal pain and right lower rib pain. States the pain is worsened by coughing and breathing. States the pain started this morning in conjunction with a cough. On abdominal exam she does have focal right upper quadrant abdominal tenderness although no positive Henson sign. She has no right CVA tenderness. Has some focal tenderness of the right lower rib spaces and does note pleuritic discomfort. She is PERC criteria negative but given that her pain is in the right costophrenic angle and that she was complaining of pleuritic component d-dimer was sent and is noted to be normal. Will not pursue CTA of the chest at this point. Right upper quadrant ultrasound is likewise pending, chest x-ray pending. Labs show nonspecific leukocytosis, urinalysis is grossly contaminated but does show positive leuk esterase and elevated white blood cell count. Pyonephritis could certainly be the cause of patient's presentation but I believe biliary pathology likewise needs to be excluded as well as a right lower lobe pneumonia given the cough and lower rib pain. 09/22/18 23:29 Right upper quadrant abdominal ultrasound is unremarkable. Chest x-ray unremarkable. D-dimer likewise negative.. Patient will be treated as a case of pyelonephritis given lack of alternative etiology. IV subtraction has been administered. Will be discharged on cephalexin. At this time will discharge with return precautions and follow-up recommendations. Verbal discharge i nstructions given a the bedside and opportunity for questions given. Medication warnings reviewed. Patient is in agreement with this plan and has verbalized understanding of return precautions and the need for primary care follow-up in the next 24-72 hours. - Vital Signs Vital signs: Temp Pulse Resp BP Pulse Ox 101.2 F H 90 16 103/60 100 09/23/18 01:58 09/23/18 01:58 09/23/18 01:58 09/23/18 01:58 09/23/18 01:58 - Laboratory Result Diagrams: 09/22/18 18:34 09/22/18 18:34 Laboratory results interpreted by me: 09/22/18 09/22/18 18:34 18:34 WBC 16.3 H Seg Neutrophils % 85.0 H Lymphocytes % 8.5 L Absolute Neutrophils 13.9 H Urine Nitrite POSITIVE H Ur Leukocyte Esterase MODERATE H - Diagnostic Test Radiology reviewed: Image reviewed, Reports reviewed Radiology results interpreted by me: 09/22/18 23:29 Chest x-ray: No acute infiltrate or pneumothorax Discharge - Discharge Clinical Impression: Right flank pain, Pyelonephritis Condition: Good Disposition: HOME, SELF-CARE Additional Instructions: You have been diagnosed with a condition called pyelonephritis which is an infection involving your kidneys and bladder. You have been given a dose of antibiotics here in the emergency department to help begin to treat this infection. Your also being sent home on antibiotics. Please start taking these later on today when you fill the prescription. Complete the course even if you feel better. Please return if you have persistent vomiting, pass out, have worsening pain, become unable to tolerate fluids, or have any other symptoms that are concerning to you. Please follow-up with your primary care physician in the next 24-48 hours. Prescriptions: Cephalexin Monohydrate [Keflex 500 mg Capsule] 500 mg PO Q6H 7 Days capsule
--- NOTE | 2018-09-22 22:49 | RADIOLOGY REPORT (SQ) ---
EXAM DESCRIPTION: [facility]: US ABDOMEN LIMITED CLINICAL HISTORY: 28 years Female; ruq pain TECHNIQUE: Right upper quadrant ultrasound was performed. COMPARISON: 09/14/2018 FINDINGS: Pancreas: Visualized portions are unremarkable. Liver: 14 cm long Portal venous flow is hepatopedal, normal. Gallbladder: normal with no gallstones or sonographic evidence for acute cholecystitis. No pericholecystic fluid. No sonographic Henson's sign. Common bile duct: 2 mm. Right kidney: 9.1 x 4.5 x 5 cm. No hydronephrosis. Visualized portions of aorta and IVC are unremarkable IMPRESSION: 1. Normal right upper quadrant ultrasound.
--- NOTE | 2018-09-22 23:02 | RADIOLOGY REPORT (SQ) ---
EXAM DESCRIPTION: XR CHEST 1 VIEW COMPLETED DATE/TME: 09/22/2018 22:07 CLINICAL HISTORY: 28 years, Female, Right lower rib pain, cough COMPARISON: Prior study from 07/01/2018. NUMBER OF VIEWS: One TECHNIQUE: Single frontal view of the chest was obtained. LIMITATIONS: None. FINDINGS: Cardiac and mediastinal contours are normal in appearance. Lungs are clear. No pleural effusion or pneumothorax. IMPRESSION: No acute disease. copyright 2010 [employer]- All Rights Reserved
[2018-09-22] MEDS ORDERED: CEFTRIAXONE INJ 1000 MG VIAL IV ONE (23:30)
[2018-09-23] MEDS: FENTANYL CITRATE INJ/PF 100 MCG/2 ML AMPUL IV PRN (00:50)
[2018-09-23] MEDS ORDERED: IBUPROFEN 600 MG TABLET PO ONE (01:59)
[2018-09-23 02:00] VITALS: BP 103/60
== END 2018-09-23 02:11 | disposition home or self-care (01) ==
LOC: ER 16:45
DX: R10.11 Right upper quadrant pain (principal); R10.9 Unspecified abdominal pain; R07.81 Pleurodynia; N12 Tubulo-interstitial nephritis, not specified as acute or chronic; R10.811 Right upper quadrant abdominal tenderness; R10.819 Abdominal tenderness, unspecified site; R11.0 Nausea; R35.0 Frequency of micturition; Z98.51 Tubal ligation status; Z87.59 Personal history of other complications of pregnancy, childbirth and the puerperium; Z90.49 Acquired absence of other specified parts of digestive tract
CPT/HCPCS: 99284; 96361; 96375; 96365; 36415; 87086; 83690; 85025; 81025; 87088; 80053; 81001; 87186; 85379; 71045; 76705; J3010 ×2; J1885; J0696; J2405; J7030

== ENCOUNTER 2018-09-23 13:40 | Emergency (ER) | payer SELFPAY ==
[2018-09-23 13:59] LABS: VENOUS BLOOD BASE EXCESS -1.7 mmol/L; VENOUS BLOOD HCO3 23.4 mmol/L (20-32); VENOUS BLOOD PCO2 40.9 mmHg (35-63); VENOUS BLOOD PH 7.38 (7.30-7.42)
[2018-09-23 14:10] LABS: HEMATOCRIT 34.7 % (36.0-47.0); INTERNATIONAL RATION (INR) 1.14; MEAN CORPUSCULAR HEMOGLOBIN 29.4 pg (27.0-33.4); MEAN CORPUSCULAR HGB CONC 34.7 g/dL (32.0-36.0); MEAN CORPUSCULAR VOLUME 85 fl (80-97); PLATELET COUNT 209 10^3/uL (150-450); PROTHROMBIN TIME 15.2 SEC (11.4-15.4); RED CELL DISTRIBUTION WIDTH 12.2 % (11.5-14.0)
[2018-09-23 14:15] LABS: ALANINE AMINOTRANSFERASE 20 U/L (9-52); ALBUMIN 3.4 g/dL (3.5-5.0); ALKALINE PHOSPHATASE 88 U/L (38-126); ANION GAP 7 (5-19); ASPARTATE AMINO TRANSFERASE 15 U/L (14-36); BILIRUBIN,DIRECT 0.2 mg/dL (0.0-0.4); BILIRUBIN,TOTAL 0.8 mg/dL (0.2-1.3); BLOOD UREA NITROGEN 14 mg/dL (7-20); CALCIUM 8.8 mg/dL (8.4-10.2); CARBON DIOXIDE 25 mmol/L (22-30); CHLORIDE 105 mmol/L (98-107); GLUCOSE 101 mg/dL (75-110); SODIUM 137.3 mmol/L (137-145); TOTAL PROTEIN 6.2 g/dL (6.3-8.2)
[2018-09-23] MEDS ORDERED: CEFTRIAXONE 1 GM/D5W RTU 1 GM/50 ML RTUPB IV ONE (14:31)
[2018-09-23] MEDS ORDERED: RINGERS SOLUTION,LACTATED 1,000 ML IV ONE (14:33)
[2018-09-23 14:36] LABS: ABSOLUTE LYMPHOCYTES# (MANUAL) 0.7 10^3/uL (0.5-4.7); ABSOLUTE MONOCYTES # (MANUAL) 1.3 10^3/uL (0.1-1.4); BASOPHILS % (MANUAL) 0 % (0-2); EOSINOPHILS % (MANUAL) 0 % (0-6); LYMPHOCYTES % (MANUAL) 3 % (13-45); MONOCYTES % (MANUAL) 6 % (3-13); SEGMENTED NEUTROPHILS % (MAN) 91 % (42-78); TOTAL CELLS COUNTED 100
[2018-09-23 14:37] LABS: PLATELET COMMENT ADEQUATE; POLYCHROMASIA SLIGHT; TOXIC GRANULATION 1+
[2018-09-23] MEDS ORDERED: MORPHINE SULFATE 10 MG/ML INJ IV ONE (14:51)
[2018-09-23] MEDS ORDERED: ONDANSETRON HCL INJ/PF 4 MG/2 ML SDV IV ONE (14:51)
[2018-09-23] MEDS ORDERED: KETOROLAC TROMETHAMINE INJ/PF 30 MG/1 ML SDV IV ONE (14:53)
--- NOTE | 2018-09-23 14:56 | ER Document Report ---
ED General - General Chief Complaint: Abdominal Pain Stated Complaint: ABDOMINAL PAIN Time Seen by Provider: 09/23/18 14:27 Mode of Arrival: Ambulatory Information source: [facility] Records Notes: 28-year-old female with no reported past medical history presents with complaint of right flank and right lower quadrant pain that started 1 day prior to arrival. Patient describes the pain as sharp, stabbing and constant. Patient has had 3 episodes of vomiting. Patient was seen in the emergency department yesterday and diagnosed with a urinary tract infection. She did receive antibiotics during her ED course but states that she has been unable to fill her medications because she cannot afford them. TRAVEL OUTSIDE OF THE [place] IN LAST 30 DAYS: No - HPI Onset: Yesterday Onset/Duration: Gradual, Persistent Quality of pain: Sharp, Stabbing Severity: Moderate Pain Level: 2 Associated symptoms: Nausea, Vomiting, Other - Abdominal pain Exacerbated by: Movement, Food Relieved by: Denies Similar symptoms previously: Yes Recently seen / treated by doctor: Yes - Yesterday at [facility] emergency department - Related Data Allergies/Adverse Reactions: fentanyl Allergy (Verified 09/23/18 16:43) Past Medical History - General Information source: Patient, [facility] Records - Social History Smoking Status: Current Every Day Smoker Cigarette use (# per day): Yes - 10 Smoking Education Provided: Yes - Smoking cessation counseling was provided for 4 minutes at the bedside Frequency of alcohol use: Occasional Drug Abuse: None Lives with: Family Family History: Reviewed & Not Pertinent Patient has suicidal ideation: No Patient has homicidal ideation: No - Medical History Medical History: Negative Renal/ Medical History: Reports: Hx Ectopic . Denies: Hx Peritoneal Dialysis Past Surgical History: Reports: Hx Appendectomy, Hx Gynecologic Surgery - Removal of ectopic , Hx Tubal Ligation Review of Systems - Review of Systems Notes: REVIEW OF SYSTEMS: CONSTITUTIONAL : Denies fever, chills, or sweats. Denies recent illness. Denies weight loss, recent hospitalizations. EENT: Denies visual changes, eye pain. Denies sore throat, oral lesions, difficulty swallowing. CARDIOVASCULAR: Denies chest pain. Denies palpitations. Denies lower extremity edema. RESPIRATORY: Denies cough. Denies shortness of breath, wheezing. GASTROINTESTINAL: Denies abdominal distention. Denies diarrhea. Denies blood in vomitus, stools, or per rectum. Denies black, tarry stools. Denies constipation. GENITOURINARY: Denies difficulty urinating, painful urination, frequency, blood in urine, or vaginal discharge. MUSCULOSKELETAL: Denies neck pain or stiffness. Denies joint pain or swelling. SKIN: Denies rash, lesions or sores. HEMATOLOGIC : Denies easy bruising or bleeding. LYMPHATIC: Denies swollen glands. NEUROLOGICAL: Denies confusion or altered mental status. Denies loss of consciousness. Denies dizziness or lightheadedness. Denies headache. Denies weakness or paralysis. Denies problems difficulty with ambulation, slurred speech. Denies sensory loss, numbness, or tingling. Denies seizures. PSYCHIATRIC: Denies anxiety or stress. Denies depression, suicidal ideation, or homicidal ideation. Denies visual or auditory hallucinations. Physical Exam - Vital signs Vitals: Temp 97.9 F 09/23/18 17:34 Interpretation: No: Tachycardic, Febrile - Notes Notes: PHYSICAL EXAMINATION: GENERAL: Well-appearing, well-nourished and in no acute distress. HEAD: Atraumatic, normocephalic. EYES: Pupils equal round and reactive to light, extraocular movements intact, conjunctiva are normal. ENT: Nares patent, oropharynx clear without exudates. Moist mucous membranes. NECK: Normal range of motion, supple without lymphadenopathy LUNGS: Breath sounds clear to auscultation bilaterally and equal. No wheezes rales or rhonchi. HEART: Regular rate and rhythm without murmurs ABDOMEN: Tenderness with palpation to the right mid abdomen. No CVA tenderness no right lower quadrant tenderness, McBurney's negative, heel strike negative no guarding, no rebound. No masses appreciated. Female : deferred Musculoskeletal: Normal range of motion, no pitting or edema. No cyanosis. NEUROLOGICAL: Cranial nerves grossly intact. Normal speech, normal gait. Normal sensory, motor exams PSYCH: Normal mood, normal affect. SKIN: Warm, Dry, normal turgor, no rashes or lesions noted. Course - Re-evaluation Re-evalutation: Laboratory 09/23/18 09/23/18 09/23/18 13:43 13:43 13:43 WBC 22.0 H RBC 4.10 Hgb 12.0 D Hct 34.7 L MCV 85 MCH 29.4 MCHC 34.7 RDW 12.2 Plt Count 209 Total Counted 100 Seg Neutrophils % Not Reportable Seg Neuts % (Manual) 91 H Lymphocytes % Not Reportable Lymphocytes % (Manual) 3 L Monocytes % Not Reportable Monocytes % (Manual) 6 Eosinophils % Not Reportable Eosinophils % (Manual) 0 Basophils % Not Reportable Basophils % (Manual) 0 Absolute Neutrophils Not Reportable Abs Neuts (Manual) 20.0 H Absolute Lymphocytes Not Reportable Abs Lymphs (Manual) 0.7 Absolute Monocytes Not Reportable Abs Monocytes (Manual) 1.3 Absolute Eosinophils Not Reportable Absolute Eos (Manual) 0.0 Absolute Basophils Not Reportable Abs Basophils (Manual) 0.0 Toxic Granulation 1+ Platelet Comment ADEQUATE Polychromasia SLIGHT PT 15.2 INR 1.14 VBG pH VBG pCO2 VBG HCO3 VBG Base Excess Sodium Potassium Chloride Carbon Dioxide Anion Gap BUN Creatinine Est GFR ( Amer) Est GFR (Non-Af Amer) Glucose Lactic Acid Calcium Total Bilirubin Direct Bilirubin Neonat Total Bilirubin Neonat Direct Bilirubin Neonat Indirect Bili AST ALT Alkaline Phosphatase Total Protein Albumin Serum HCG, Qual NEGATIVE 09/23/18 09/23/18 09/23/18 13:43 13:43 13:43 WBC RBC Hgb Hct MCV MCH MCHC RDW Plt Count Total Counted Seg Neutrophils % Seg Neuts % (Manual) Lymphocytes % Lymphocytes % (Manual) Monocytes % Monocytes % (Manual) Eosinophils % Eosinophils % (Manual) Basophils % Basophils % (Manual) Absolute Neutrophils Abs Neuts (Manual) Absolute Lymphocytes Abs Lymphs (Manual) Absolute Monocytes Abs Monocytes (Manual) Absolute Eosinophils Absolute Eos (Manual) Absolute Basophils Abs Basophils (Manual) Toxic Granulation Platelet Comment Polychromasia PT INR VBG pH 7.38 VBG pCO2 40.9 VBG HCO3 23.4 VBG Base Excess -1.7 Sodium 137.3 Potassium 4.0 Chloride 105 Carbon Dioxide 25 Anion Gap 7 BUN 14 Creatinine 0.84 Est GFR ( Amer) > 60 Est GFR (Non-Af Amer) > 60 Glucose 101 Lactic Acid 1.5 Calcium 8.8 Total Bilirubin 0.8 Direct Bilirubin 0.2 Neonat Total Bilirubin Not Reportable Neonat Direct Bilirubin Not Reportable Neonat Indirect Bili Not Reportable AST 15 ALT 20 Alkaline Phosphatase 88 Total Protein 6.2 L Albumin 3.4 L Serum HCG, Qual Abdomen/Pelvis CT 09/23/18 14:50 IMPRESSION: Small hypodensities in the right renal upper pole cortex suggesting pyelonephritis, correlate clinically. No calcified stones. No hydronephrosis or hydroureter. 09/23/18 16:23 Social work consulted for patient's antibiotic needs as she states that she cannot afford the $10 prescription of Keflex. 09/23/18 17:30 Patient now tells social work that she is able to fill her prescription for Keflex but she is concerned that she will not be able to tolerate the pain which is causing her to be nauseous and vomit. I did explain to the patient several times that she will be given both Zofran and Imperial to go home on. Patient is tolerating p.o. without difficulty. Urinalysis today shows a significant improvement of her UTI. Patient did receive an additional dose of Cipro and ceftriaxone here in the department. Patient's tachycardia has resolved. CBC does show a leukocytosis without anemia. CMP is without significant electrolyte abnormality. Lactic acid 1.5. Patient has essentially been threatening to not be compliant with her antibiotic medications even though I have discussed the importance of this. 09/23/18 17:32 Patient presents with symptoms consistent with an acute cystitis. Vitals wnl. Patient's tachycardia and fever have resolved. Patient is well in appearance, tolerating oral intake without difficulty. No focal abdominal tenderness to suggest acute appendicitis, biliary pathology, acute pancreatitis, tubo-ovarian abscesses, or pelvic inflammatory disease. Patient will be started on antibiotics at this time. A culture has been sent. They will be discharged with return precautions and follow-up recommendations. 09/23/18 17:34 09/23/18 18:49 Patient was evaluated and treated as appropriate for the patient's presenting symptoms and complaint, with consideration of any critical or life threatening conditions that may be associated with their obtained history and exam as noted above. All results were discussed with patient friend who is at the bedside. Patient provided the opportunity to ask questions, and express concerns. Patient was educated on treatments based on their presumed diagnosis as noted above. At this time we will discharge the patient with return precautions and follow-up recommendations. Verbal discharge instructions given a the bedside. Medication warnings reviewed. Patient is in agreement with this plan and has verbalized understanding of return precautions. After careful consideration I feel that that patient can be safely discharged from the emergency department, they were advised to followup with a primary care physician in 2-3 days. Dictation on this chart was performed using voice recognition software and may result in unintended grammatical, spelling, syntax or errors. - Vital Signs Vital signs: Temp Pulse Resp BP Pulse Ox 97.9 F 09/23/18 17:34 - Laboratory Result Diagrams: 09/23/18 13:43 09/23/18 13:43 Laboratory results interpreted by me: 09/23/18 09/23/18 09/23/18 13:43 13:43 16:42 WBC 22.0 H Hct 34.7 L Seg Neuts % (Manual) 91 H Lymphocytes % (Manual) 3 L Abs Neuts (Manual) 20.0 H Total Protein 6.2 L Albumin 3.4 L Urine Ketones TRACE H Ur Leukocyte Esterase MODERATE H Chlamydia DNA (PCR) 09/23/18 16:42 WBC Hct Seg Neuts % (Manual) Lymphocytes % (Manual) Abs Neuts (Manual) Total Protein Albumin Urine Ketones Ur Leukocyte Esterase Chlamydia DNA (PCR) DETECTED H - Diagnostic Test Radiology reviewed: Image reviewed, Reports reviewed Discharge - Discharge Clinical Impression: Pyelonephritis Urinary tract infection Qualifiers: Urinary tract infection type: site unspecified Hematuria presence: without hematuria Qualified Code(s): N39.0 - Urinary tract infection, site not specified Condition: Good Disposition: HOME, SELF-CARE Instructions: Abdominal Pain ([facility]), Nausea or Vomiting, Nonspecific ([facility]), Pyelonephritis ([facility]), Urinary Tract Infection ([facility]) Additional Instructions: Your urine shows findings consistent with a urinary tract infection. Please take all the antibiotics as directed even if your symptoms have improved. Please follow-up with your primary care physician as needed. Return to emergency room if you develop fever >101F, persistent vomiting, become lethargic, have severe pain in your sides, or any other symptoms that are concerning to you. Recommendations: It is recommended to followup with a primary care doctor within the next 2 days. If you do not have a primary care doctor or you are unable to get an apointment during that time, I left the number for some internal medicine physicians that are affiliated with this [facility]. Dr. Olga Sharp [address], [place] [address] [phone] Dr Johnson Address: [address] [place] [address] , [place] [address] Dr Merritt Address: [address] [place] [address] , [place] [address] Most prescribed medications have multiple side effects. The safest thing to do is when filling your prescription please speak to your pharmacist regarding poss ible interactions with your normal home medications and over the counter medications such as Ibuprofen, Tylenol, Benadryl.. If you experience any symptoms that cause you discomfort or concern you should discontinue the medication immediately and return to the emergency room or call your primary car e physician. Prescriptions: Cephalexin Monohydrate [Keflex 500 mg Capsule] 500 mg PO BID 5 Days #10 capsule
--- NOTE | 2018-09-23 15:36 | RADIOLOGY REPORT (SQ) ---
EXAM DESCRIPTION: CT ABD/PELVIS WITH IV ONLY COMPLETED DATE/TIME: 09/23/2018 3:18 pm REASON FOR STUDY: rlq pain COMPARISON: None. TECHNIQUE: CT scan of the abdomen and pelvis performed using helical scanning technique with dynamic intravenous contrast injection. No oral contrast. Images reviewed with lung, soft tissue, and bone w indows. Reconstructed coronal and sagittal MPR images reviewed. Delayed images for evaluation of the urinary system also acquired. All images stored on PACS. All CT scanners at this facility use dose modulation, iterative reconstruction, and/or weight based d osing when appropriate to reduce radiation dose to as low as reasonably achievable (ALARA). [facility]: Dose Right [facility]: CareDose [facility]: Dose Right [facility]: Teradose 4D [facility]: [employer] CONTRAST TYPE AND DOSE: contrast/concentration: Isovue 350.00 mg/ml; Total Contrast Delivered: 67.0 ml; Total Saline Delivered: 65.0 ml RENAL FUNCTION: GFR > 60. RADIATION DOSE: CT Rad equipment meets quality standard of care and radiation dose reduction techniq ues were employed. CTDIvol: NaN - NaN mGy. DLP: 0 mGy-cm.. LIMITATIONS: None. FINDINGS: LOWER CHEST: No significant findings. LIVER: Normal size. No enhancing masses. No dilated ducts. SPLEEN: Normal size. No focal lesions. PANCREAS: No masses identified. No significant calcifications. No adjacent inflammation or peripancre atic fluid collections. Pancreatic duct not dilated. GALLBLADDER: No calcified stones. No inflammatory changes to suggest cholecystitis. ADRENAL GLANDS: No significant masses. RIGHT KIDNEY AND URETER: Small hypodensities in the right renal upper pole cortex suggesting pyelonep hritis, correlate clinically.. No calcified stones. No hydronephrosis or hydroureter. LEFT KIDNEY AND URETER: No cysts identified. No solid masses identified. No calcified stones. No hydr onephrosis or hydroureter. AORTA AND VESSELS: No aneurysm. No dissection. Renal arteries, SMA, celiac without significant stenos is. RETROPERITONEUM: No bulky retroperitoneal adenopathy. BOWEL AND PERITONEAL CAVITY: No obstruction or inflammatory changes. No free fluid. APPENDIX: Surgically absent. PELVIS: No mass. Trace free fluid. Unremarkable bladder. ABDOMINAL WALL: No masses. No hernias. BONES: No acute findings. OTHER: No other significant finding. IMPRESSION: Small hypodensities in the right renal upper pole cortex suggesting pyelonephritis, puneet elate clinically. No calcified stones. No hydronephrosis or hydroureter. TECHNICAL DOCUMENTATION: JOB ID: [id number] Quality ID # [id number]: Final reports with documentation of one or more dose reduction techniques (e.g., Au tomated exposure control, adjustment of the mA and/or kV according to patient size, use of iterative reconstruction technique) 2010 [employer]- All Rights Reserved Reading location - IP/workstation name: [email or web address]
[2018-09-23] MEDS ORDERED: ONDANSETRON ODT 4 MG TAB (6 TAB/ER DISP) PO PRN (16:14)
[2018-09-23] MEDS ORDERED: CIPROFLOXACIN 400 MG/D5W RTU 400 MG/200 ML RTUPB IV SCH (16:30)
[2018-09-23] MEDS ORDERED: CIPROFLOXACIN 400 MG/D5W RTU 400 MG/200 ML RTUPB IV ONE (17:00)
[2018-09-23 17:04] LABS: APPEARANCE,URINE SLIGHTLY-CLOUDY; BILIRUBIN,URINE NEGATIVE (NEGATIVE); COLOR,URINE YELLOW; GLUCOSE, URINE NEGATIVE (NEGATIVE); KETONES,URINE TRACE mg/dL (NEGATIVE); LEUKOCYTE ESTERASE,URINE MODERATE (NEGATIVE); NITRITE,URINE NEGATIVE (NEGATIVE); PROTEIN,URINE NEGATIVE (NEGATIVE); URINE SPECIFIC GRAVITY 1.049; UROBILINOGEN,URINE NEGATIVE mg/dL (<2.0)
[2018-09-23] MEDS ORDERED: HYDROCODONE/ACETAMINOPHEN 5-325 MG (6 TAB/ER DISP) PO PRN (17:37)
[2018-09-23 18:31] LABS: CHLAM PCR DETECTED (NOT DETECT)
--- NOTE | 2018-09-23 18:40 | EKG REPORT ---
SEVERITY:- BORDERLINE ECG - SINUS TACHYCARDIA BORDERLINE T WAVE ABNORMALITIES : Confirmed by: Amy Mooney MD 23-Sep-2018 18:39:44
[2018-09-23 19:11] VITALS: BP 103/71
[2018-09-24] MEDS ORDERED: CIPROFLOXACIN 400 MG/D5W RTU 400 MG/200 ML RTUPB IV SCH (06:00)
== END 2018-09-23 19:52 | disposition home or self-care (01) ==
LOC: ER 13:40
DX: N12 Tubulo-interstitial nephritis, not specified as acute or chronic (principal); N39.0 Urinary tract infection, site not specified; R10.9 Unspecified abdominal pain; R10.31 Right lower quadrant pain; R11.10 Vomiting, unspecified; F17.210 Nicotine dependence, cigarettes, uncomplicated
CPT/HCPCS: 93005; 99406; 99284; 96375; 96365; 96366; 96367; 36415; 87040; 87086; 82962; 84703; 85025; 85610; 80053; 81001; 87491; 87591; 82803; 83605; 74177; 93010; J1885; J2270; J2405; J7120; J0744; J0696

== ENCOUNTER 2018-11-21 02:10 | Emergency (ER) | payer SELFPAY | END 2018-11-21 02:51 | disposition left against medical advice (07) | LOC: ER 02:10 | DX: Z53.21 Procedure and treatment not carried out due to patient leaving prior to being seen by health care provider (principal) ==

== ENCOUNTER 2018-11-28 00:31 | Emergency (ER) | payer SELFPAY ==
[2018-11-28 00:38] VITALS: BP 122/60
== END 2018-11-28 04:19 | disposition left against medical advice (07) ==
LOC: ER 00:31
DX: H60.331 Swimmer's ear, right ear (principal); H92.01 Otalgia, right ear

== ENCOUNTER 2018-11-28 17:35 | Emergency (ER) | payer SELFPAY ==
[2018-11-28 17:51] VITALS: BP 117/73
[2018-11-28] MEDS ORDERED: CIPROFLOXACIN HCL/DEXAMETH OTIC DROP 7.5 ML AD ONE (18:24)
--- NOTE | 2018-11-28 18:27 | ER Document Report ---
HPI - HPI Time Seen by Provider: 11/28/18 18:13 Pain Level: 4 Context: Patient is a 28-year-old female who presents to the emergency department today with a chief complaint of right ear pain. Patient states this has been present for 2 days. Patient denies drainage. Patient states that the symptoms have gotten worse. Patient states she has not taken any Tylenol or ibuprofen or other [id number] medications for her discomfort. Patient states she was swimming in the ocean a few days ago when the ear pain developed. Patient denies fever or any other symptoms. - CONSTITUTIONAL Constitutional: DENIES: Fever, Chills - EENT EENT: REPORTS: Ear Pain - R ear - REPRODUCTIVE Reproductive: DENIES: : Past Medical History - General Information source: Patient - Social History Smoking Status: Never Smoker Frequency of alcohol use: None Drug Abuse: None Family History: Reviewed & Not Pertinent Patient has suicidal ideation: No Patient has homicidal ideation: No - Past Medical History Cardiac Medical History: Reports: None Pulmonary Medical History: Reports: None EENT Medical History: Reports: None Neurological Medical History: Reports: None Endocrine Medical History: Reports: None Renal/ Medical History: Reports: Hx Ectopic . Denies: Hx Peritoneal Dialysis Malignancy Medical History: Reports: None GI Medical History: Reports: None Musculoskeletal Medical History: Reports None Skin Medical History: Reports None Psychiatric Medical History: Reports: None Traumatic Medical History: Reports: None Infectious Medical History: Reports: None Past Surgical History: Reports: Hx Appendectomy, Hx Gynecologic Surgery - Removal of ectopic , Hx Tubal Ligation Vertical Provider Document - CONSTITUTIONAL Agree With Documented VS: Yes Exam Limitations: No Limitations General Appearance: No Apparent Distress - Is - INFECTION CONTROL TRAVEL OUTSIDE OF THE [place] IN LAST 30 DAYS: No - HEENT HEENT: Atraumatic, Normocephalic, Tympanic Membrane Red Notes: Patient has tenderness to the external pinna and tragus with palpation. Patient's ear canal is patent although there is mild swelling and redness. Th ere is no drainage. Tympanic membrane is red without signs of perforation. Patient does not have mastoid tenderness. There is no facial swelling. - NECK Neck: Normal Inspection - RESPIRATORY Respiratory: Breath Sounds Normal, No Respiratory Distress - CARDIOVASCULAR Cardiovascular: Regular Rate, Regular Rhythm - GI/ABDOMEN Gastrointestinal: Abdomen Soft, Abdomen Non-Tender, Normal Bowel Sounds - NEURO Level of Consciousness: Awake, Alert, Appropriate - DERM Integumentary: Warm, Dry, No Rash Course - Vital Signs Vital signs: Temp Pulse Resp BP Pulse Ox 98.3 F 68 16 117/73 98 11/28/18 17:49 11/28/18 17:49 11/28/18 17:49 11/28/18 17:49 11/28/18 17:49 Discharge - Discharge Clinical Impression: Otitis externa Qualifiers: Otitis externa type: swimmer's ear Chronicity: acute Laterality: right Qualified Code(s): H60.331 - Swimmer's ear, right ear Condition: Stable Disposition: HOME, SELF-CARE Instructions: Use of Ear Drops ([facility]), Otitis Externa ([facility]) Additional Instructions: Today you are seen in the emergency department for ear pain. You do have an otitis externa which is an ear infection. We have given you Ciprodex drops at discharge. You should apply 4 drops to the right ear twice a day for the next 7 days. Please return to the emergency department if your symptoms worsen or you develop a fever, ear swelling, inability for the drops to get into your ear, facial swelling or any concerning signs or symptoms. Please take Tylenol and ibuprofen as needed for pain. Forms: Return to Work
== END 2018-11-28 18:43 | disposition home or self-care (01) ==
LOC: ER 17:35
DX: H60.331 Swimmer's ear, right ear (principal); H92.01 Otalgia, right ear
CPT/HCPCS: 99282; J3490

== ENCOUNTER 2018-12-04 01:35 | Emergency (ER) | payer SELFPAY ==
[2018-12-04] MEDS ORDERED: ONDANSETRON HCL INJ/PF 4 MG/2 ML SDV IV ONE (01:49)
--- NOTE | 2018-12-04 01:51 | ER Document Report ---
ED Substance Abuse / Acc. OD - General Chief Complaint: Drug Abuse Stated Complaint: DRUG ABUSE Time Seen by Provider: 12/04/18 01:40 Mode of Arrival: Medic Information source: Patient, Emergency Med Personnel Cannot obtain history due to: Intoxicated Notes: HISTORY OF PRESENT ILLNESS: Patient is a 28-year-old for with no significant past medical history who presents with alcohol intoxication and drug abuse. Patient reported to the emergency medical services that she took "3 ecstasy pills" and drank an unknown amount of alcohol "so I could fall asleep." She reports having no medical history and denies drug use before. Onset: Sudden prior to arrival Provocation: Stress at work Quality: Nausea, anxiety Radiation: None Severity: Moderate Timing: Constant SI/HI: None Hallucinations: None Current therapist: None Current treatment: None REVIEW OF SYSTEMS: CONSTITUTIONAL : Denies fever or chills, no sweats. Denies recent illness. EENT: Denies eye, ear, throat, or mouth pain or symptoms. Denies nasal or sinus congestion. CARDIOVASCULAR: Denies chest pain. RESPIRATORY: Denies cough, cold, or chest congestion. Denies shortness of breath, difficulty breathing, or wheezing. GASTROINTESTINAL: Denies abdominal pain. Denies nausea, vomiting, or diarrhea. Denies constipation. GENITOURINARY: Denies difficulty urinating, painful urination, burning, frequency, or blood in urine. FEMALE GENITOURINARY: Denies vaginal bleeding, abnormal or irregular periods. Last menstrual period MUSCULOSKELETAL: Denies neck or back pain or joint pain or swelling. SKIN: Denies rash or skin lesions. HEMATOLOGIC : Denies easy bruising or bleeding. LYMPHATIC: Denies swollen, enlarged glands. NEUROLOGICAL: Denies altered mental status or loss of consciousness. Denies headache. Denies weakness or paralysis or loss of use of either side. Denies problems with gait or speech. Denies sensory or motor loss. PSYCHIATRIC: Positive for polysubstance abuse. Denies suicidal/homicidal thoughts. Denies anxiety or stress or depression. All other systems reviewed and negative. PHYSICAL EXAMINATION: GENERAL: Anxious and agitated-appearing, well-nourished and in no acute distress. HEAD: Atraumatic, normocephalic. No scalp deformity, depression, or crepitance. EYES: Pupils are 5mm and equal/round/reactive to light, extraocular movements intact, sclera anicteric, conjunctiva are normal. ENT: Nares patent bilaterally, oropharynx clear without exudates or palatal petechia. Moist mucous membranes. No tonsil hypertrophy. NECK: Normal range of motion, supple without lymphadenopathy. LUNGS: Breath sounds present, equal, and clear to auscultation bilaterally. No wheezes, rales, or rhonchi. HEART: Regular rate and rhythm without murmurs, rubs, or gallops. 2+ peripheral pulses. Normal capillary refill. ABDOMEN: Soft, nontender, nondistended. Normoactive bowel sounds. No guarding, no rebound. No masses appreciated. BACK: Normal contour, no midline tenderness. Rectal exam deferred. GENITAL/PELVC: Deferred. EXTREMITIES: Normal range of motion, no pitting or edema. No cyanosis. NEUROLOGICAL: No focal neurological deficits. Moves all extremities spontaneously and on command. PSYCH: Anxious mood, normal affect. No suicidal thoughts/ideations. No homicidal thoughts/ideations. No hallucinations. SKIN: Warm, dry, normal turgor, no rashes or lesions noted. ASSESSMENT AND PLAN: This patient is a 23-year-old female who presents with acute intoxication of both alcohol and drugs per her report. 1. Will obtain medical clearance and observe. 2. Will give IV fluids and consider symptomatic treatment as needed. TRAVEL OUTSIDE OF THE [place] IN LAST 30 DAYS: No - HPI Patient complains to provider of: Alcohol abuse, Drug abuse Onset: Just prior to arrival Onset/Duration: Sudden Quality of pain: No pain Severity: Moderate Pain Level: Denies Situational problems related to: Work Associated Symptoms: Chest pain/discomfort, Nausea/vomiting Similar symptoms previously: No Recently seen / treated by doctor: No - Related Data Allergies/Adverse Reactions: fentanyl Allergy (Verified 11/28/18 17:40) Past Medical History - General Information source: Patient, Emergency Med Personnel Cannot obtain history due to: Intoxicated - Social History Smoking Status: Unknown if Ever Smoked Chew tobacco use (# tins/day): No Frequency of alcohol use: Occasional Drug Abuse: Other - Ecstacy Lives with: Alone Family History: Reviewed & Not Pertinent Patient has suicidal ideation: No Patient has homicidal ideation: No - Medical History Medical History: Negative - Past Medical History Cardiac Medical History: Reports: None Pulmonary Medical History: Reports: None EENT Medical History: Reports: None Neurological Medical History: Reports: None Endocrine Medical History: Reports: None Renal/ Medical History: Reports: Hx Ectopic . Denies: Hx Peritoneal Dialysis Malignancy Medical History: Reports: None GI Medical History: Reports: None Musculoskeletal Medical History: Reports None Skin Medical History: Reports None Psychiatric Medical History: Reports: None Traumatic Medical History: Reports: None Infectious Medical History: Reports: None Past Surgical History: Reports: Hx Appendectomy, Hx Gynecologic Surgery - Removal of ectopic , Hx Tubal Ligation - Immunizations Immunizations up to date: Yes Hx Diphtheria, Pertussis, Tetanus Vaccination: Yes Review of Systems - Review of Systems Constitutional: No symptoms reported EENT: No symptoms reported Cardiovascular: No symptoms reported Respiratory: No symptoms reported Gastrointestinal: No symptoms reported Genitourinary: No symptoms reported Female Genitourinary: No symptoms reported Musculoskeletal: No symptoms reported Skin: No symptoms reported Hematologic/Lymphatic: No symptoms reported Neurological/Psychological: See HPI, Anxiety, Other - Drug and alcohol abuse -: Yes All other systems reviewed and negative Physical Exam - Vital signs Vitals: Resp BP Pulse Ox 26 H 122/76 98 12/04/18 01:41 12/04/18 01:41 12/04/18 01:41 Interpretation: Normal - General General appearance: Appears well, Alert - HEENT Head: Normocephalic, Atraumatic Eyes: Normal Pupils: PERRL - Respiratory Respiratory status: No respiratory distress Chest status: Nontender Breath sounds: Normal Chest palpation: Normal - Cardiovascular Rhythm: Regular Heart sounds: Normal auscultation Murmur: No - Abdominal Inspection: Normal Distension: No distension Bowel sounds: Normal Tenderness: Nontender Organomegaly: No organomegaly - Back Back: Normal, Nontender - Extremities General upper extremity: Normal inspection, Nontender, Normal color, Normal ROM, Normal temperature General lower extremity: Normal inspection, Nontender, Normal color, Normal ROM, Normal temperature, Normal weight bearing. No: Suhail's sign - Neurological Neuro grossly intact: Yes Cognition: Normal Orientation: AAOx4 Tong Coma Scale Eye Opening: Spontaneous Tong Coma Scale Verbal: Oriented Tong Coma Scale Motor: Obeys Commands Tong Coma Scale Total: 15 Speech: Normal Motor strength normal: LUE, RUE, LLE, RLE Sensory: Normal - Psychological Associated symptoms: Normal affect, Normal mood - Skin Skin Temperature: Warm Skin Moisture: Dry Skin Color: Normal Course - Re-evaluation Re-evalutation: 12/04/18 06:01 Lab work is grossly unremarkable and urine drug screen is positive only for amphetamines. Patient had to be given intramuscular Haldol for agitation. Plan will be to allow the patient to return to her baseline cognitive abilities and perform a repeat exam to ensure she is safe to go home. Signout has been given to Dr. Haley. - Vital Signs Vital signs: Temp Pulse Resp BP Pulse Ox 98.4 F 19 113/68 97 12/04/18 02:16 12/04/18 05:52 12/04/18 05:52 12/04/18 05:52 - Laboratory Result Diagrams: 12/04/18 01:44 12/04/18 01:44 Laboratory results interpreted by me: 12/04/18 12/04/18 12/04/18 01:44 01:44 02:35 WBC 10.8 H Potassium 3.5 L Chloride 108 H Glucose 129 H Urine Blood MODERATE H Ur Leukocyte Esterase TRACE H Salicylates < 1.0 L Acetaminophen < 10 L - EKG Interpretation by Me EKG shows normal: Sinus rhythm Rate: Tachycardia Rhythm: NSR [place]/QRS: No: Right axis deviation, Left axis deviation, RBBB, LBBB, IVCD, LAHB/LAFB, LPHB/LPFB, Bifasicular block Voltage: No: Increased voltage, Consistant with LVH, Decreased voltage, Throughout, Limb leads P Waves: No: MARICRUZ, LAE, Absent, AV Dissociation, Other Heart block present: No: 1st Degree, Mobitz 1, Mobitz 2, CHB (3rd degree block) When compared to previous EKG there are: Previous EKG unavailable - Transfer of Care Care transferred to following provider: Dr. Haley Discharge - Discharge Clinical Impression: Polysubstance abuse Condition: Good Disposition: HOME, SELF-CARE Instructions: Ampetamine Abuse ([facility]), Acute Alcohol Intoxication ([facility]), Family Physicians / Practices Additional Instructions: You have been evaluated in the Emergency Department for abusing both alcohol and other drugs. While here, you had blood work that was normal and have been evaluated/observed for several hours and it is now safe to be discharged home. Please follow-up with your primary physician as instructed in 1 week to be rechecked. Return to the Emergency Department if you experience thoughts of hurting yourself, thoughts of harming others, or any other concerning symptoms. Print Language: Vietnamese
[2018-12-04] MEDS ORDERED: NORMAL SALINE 1000 ML 1,000 ML IV ONE (01:53)
[2018-12-04 02:08] LABS: ABSOLUTE LYMPHOCYTES (AUTO) 2.2 10^3/uL (0.5-4.7); ABSOLUTE MONOCYTES (AUTO) 0.7 10^3/uL (0.1-1.4); ABSOLUTE NEUT (AUTO) 7.8 10^3/uL (1.7-8.2); BASOPHILS % (AUTO) 0.4 % (0-2); EOSINOPHILS % (AUTO) 0.3 % (0-6); HEMATOCRIT 39.1 % (36.0-47.0); HEMOGLOBIN 13.7 g/dL (12.0-15.5); LYMPHOCYTES % (AUTO) 20.5 % (13-45); MEAN CORPUSCULAR HEMOGLOBIN 30.1 pg (27.0-33.4); MEAN CORPUSCULAR HGB CONC 35.2 g/dL (32.0-36.0); MEAN CORPUSCULAR VOLUME 86 fl (80-97); MONOCYTES % (AUTO) 6.6 % (3-13); PLATELET COUNT 286 10^3/uL (150-450); RED BLOOD COUNT 4.56 10^6/uL (3.72-5.28); RED CELL DISTRIBUTION WIDTH 12.7 % (11.5-14.0); SEGMENTED NEUTROPHILS % (AUTO) 72.2 % (42-78); TOTAL CELLS COUNTED % (AUTO) 100 %; WHITE BLOOD COUNT 10.8 10^3/uL (4.0-10.5)
[2018-12-04 02:24] LABS: ACETAMINOPHEN < 10 ug/mL (10-30); ALBUMIN 4.3 g/dL (3.5-5.0); ALCOHOL 54 mg/dL (NONE DETECTED); ALKALINE PHOSPHATASE 114 U/L (38-126); ANION GAP 10 (5-19); ASPARTATE AMINO TRANSFERASE 20 U/L (14-36); BILIRUBIN,DIRECT 0.3 mg/dL (0.0-0.4); BILIRUBIN,TOTAL 0.4 mg/dL (0.2-1.3); BLOOD UREA NITROGEN 13 mg/dL (7-20); CALCIUM 9.7 mg/dL (8.4-10.2); CARBON DIOXIDE 23 mmol/L (22-30); CHLORIDE 108 mmol/L (98-107); CREATINE KINASE 108 U/L (30-135); GLUCOSE 129 mg/dL (75-110); POTASSIUM 3.5 mmol/L (3.6-5.0); SALICYLATE < 1.0 mg/dL (2.0-20.0); TOTAL PROTEIN 6.9 g/dL (6.3-8.2)
[2018-12-04 02:57] LABS: APPEARANCE,URINE CLEAR; BILIRUBIN,URINE NEGATIVE (NEGATIVE); COLOR,URINE COLORLESS; GLUCOSE, URINE NEGATIVE (NEGATIVE); KETONES,URINE NEGATIVE (NEGATIVE); LEUKOCYTE ESTERASE,URINE TRACE (NEGATIVE); NITRITE,URINE NEGATIVE (NEGATIVE); PROTEIN,URINE NEGATIVE (NEGATIVE); URINE SPECIFIC GRAVITY 1.002; UROBILINOGEN,URINE NEGATIVE mg/dL (<2.0)
[2018-12-04] MEDS ORDERED: HALOPERIDOL LACTATE INJ 5 MG/1 ML VIAL IM ONE (03:14)
[2018-12-04 03:20] LABS: URINE AMPHETAMINES SCREEN UNCONFIRMED POSITIVE; URINE BARBITURATES SCREEN NEGATIVE; URINE BENZODIAZEPINES SCREEN NEGATIVE; URINE COCAINE SCREEN NEGATIVE; URINE MARIJUANA (THC) SCREEN NEGATIVE; URINE METHADONE SCREEN NEGATIVE; URINE PHENCYCLIDINE SCREEN NEGATIVE
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
[2018-12-04 10:14] VITALS: BP 125/81
--- NOTE | 2018-12-04 23:26 | EKG REPORT ---
SEVERITY:- ABNORMAL ECG - SINUS TACHYCARDIA NONSPECIFIC T ABNORMALITIES, DIFFUSE LEADS BORDERLINE PROLONGED QT INTERVAL : Confirmed by: Leigha Yang 04-Dec-2018 23:25:27
== END 2018-12-04 10:14 | disposition home or self-care (01) ==
LOC: ER 01:35
DX: F11.10 Opioid abuse, uncomplicated (principal); F10.129 Alcohol abuse with intoxication, unspecified; F15.129 Other stimulant abuse with intoxication, unspecified; R11.0 Nausea; F41.9 Anxiety disorder, unspecified; Z98.51 Tubal ligation status
CPT/HCPCS: 93005; 99285; 96361; 96374; 96375; 36415; 80307 ×4; 82550; 85025; 81025; 80053; 81001; 93010; J1630; J2405; J7030

== ENCOUNTER 2019-01-17 14:20 | Emergency (ER) | payer SELFPAY ==
--- NOTE | 2019-01-17 15:34 | ER Document Report ---
ED Medical Screen (RME) - General Chief Complaint: Vaginal Bleeding Stated Complaint: VAGINAL BLEEDING Time Seen by Provider: 01/17/19 15:32 Mode of Arrival: Ambulatory Information source: Patient Notes: 28-year-old female presented to ED for complaint of pelvic pain vaginal bleeding with clots. She states her last menstrual period was January 07 it stopped and then it started again this morning. She states she missed her period for December. She has had nausea and vomiting with vomiting x3 today. Patient states she is also had frequent urination. She is alert oriented respirations regular and unlabored speaking in full sentences. I have greeted and performed a rapid initial assessment of this patient. A comprehensive ED assessment and evaluation of the patient, analysis of test results and completion of medical decision making process will be conducted by an additional ED providers. TRAVEL OUTSIDE OF THE [place] IN LAST 30 DAYS: No - Related Data Allergies/Adverse Reactions: fentanyl Allergy (Verified 01/17/19 15:25) Past Medical History - Social History Chew tobacco use (# tins/day): No Frequency of alcohol use: None Drug Abuse: None Renal/ Medical History: Reports: Hx Ectopic . Denies: Hx Peritoneal Dialysis Past Surgical History: Reports: Hx Appendectomy, Hx Gynecologic Surgery - Removal of ectopic , Hx Tubal Ligation - Immunizations Immunizations up to date: Yes Hx Diphtheria, Pertussis, Tetanus Vaccination: Yes Physical Exam - Vital signs Vitals: Temp Pulse Resp BP Pulse Ox 98.2 F 62 18 125/67 100 01/17/19 15:04 01/17/19 15:04 01/17/19 15:04 01/17/19 15:04 01/17/19 15:04 Course - Vital Signs Vital signs: Temp Pulse Resp BP Pulse Ox 98.2 F 62 18 125/67 100 01/17/19 15:04 01/17/19 15:04 01/17/19 15:04 01/17/19 15:04 01/17/19 15:04
[2019-01-17 16:17] LABS: ABSOLUTE BASOPHILS # (AUTO) 0.1 10^3/uL (0.0-0.2); ABSOLUTE EOSINOPHILS # (AUTO) 0.1 10^3/uL (0.0-0.6); ABSOLUTE LYMPHOCYTES (AUTO) 2.5 10^3/uL (0.5-4.7); ABSOLUTE MONOCYTES (AUTO) 0.6 10^3/uL (0.1-1.4); ABSOLUTE NEUT (AUTO) 3.7 10^3/uL (1.7-8.2); BASOPHILS % (AUTO) 0.8 % (0-2); EOSINOPHILS % (AUTO) 1.4 % (0-6); HEMATOCRIT 41.4 % (36.0-47.0); HEMOGLOBIN 14.1 g/dL (12.0-15.5); LYMPHOCYTES % (AUTO) 35.4 % (13-45); MEAN CORPUSCULAR HEMOGLOBIN 29.5 pg (27.0-33.4); MEAN CORPUSCULAR HGB CONC 34.1 g/dL (32.0-36.0); MEAN CORPUSCULAR VOLUME 87 fl (80-97); MONOCYTES % (AUTO) 8.8 % (3-13); PLATELET COUNT 262 10^3/uL (150-450); RED BLOOD COUNT 4.79 10^6/uL (3.72-5.28); RED CELL DISTRIBUTION WIDTH 12.5 % (11.5-14.0); SEGMENTED NEUTROPHILS % (AUTO) 53.6 % (42-78); TOTAL CELLS COUNTED % (AUTO) 100 %
[2019-01-17 16:30] LABS: ALBUMIN 4.4 g/dL (3.5-5.0); ALKALINE PHOSPHATASE 81 U/L (38-126); ANION GAP 8 (5-19); ASPARTATE AMINO TRANSFERASE 20 U/L (14-36); BILIRUBIN,DIRECT 0.1 mg/dL (0.0-0.4); BILIRUBIN,TOTAL 0.5 mg/dL (0.2-1.3); BLOOD UREA NITROGEN 11 mg/dL (7-20); CALCIUM 9.6 mg/dL (8.4-10.2); CARBON DIOXIDE 28 mmol/L (22-30); CHLORIDE 103 mmol/L (98-107); GLUCOSE 84 mg/dL (75-110); POTASSIUM 4.1 mmol/L (3.6-5.0); TOTAL PROTEIN 7.4 g/dL (6.3-8.2)
--- NOTE | 2019-01-17 16:46 | ER Document Report ---
ED GI/ - General Chief Complaint: Vaginal Bleeding Stated Complaint: VAGINAL BLEEDING Time Seen by Provider: 01/17/19 15:32 Primary Care Provider: [facility] [Provider Group] - Follow up as needed Mode of Arrival: Ambulatory Information source: Patient Notes: Patient presents complaining of pelvic pain with vaginal bleeding with clots. Patient also reports urinary frequency and hematuria. Patient is concerned that she may be . Patient states she missed her period in December although had a period in January. Patient denies any concerns about STDs. TRAVEL OUTSIDE OF THE [place] IN LAST 30 DAYS: No - HPI Patient complains to provider of: Pelvic pain, Vaginal bleeding Timing/Duration: Gradual Quality of pain: Achy Pain Level: 3 Location: Pelvis Vaginal bleeding (Compared to normal period): Similar, Passing clots Sexual history: Active, Unprotected intercourse. denies: STD exposure Associated symptoms: denies: Dysuria, Fever, Nausea, Urinary hesitancy, Urinary frequency, Urinary retention, Vomiting Exacerbated by: Denies Relieved by: Denies Similar symptoms previously: No Recently seen / treated by doctor: No - Related Data Allergies/Adverse Reactions: fentanyl Allergy (Verified 01/17/19 15:25) Past Medical History - General Information source: Patient - Social History Smoking Status: Never Smoker Chew tobacco use (# tins/day): No Frequency of alcohol use: None Drug Abuse: None Occupation: None Family History: Reviewed & Not Pertinent Patient has suicidal ideation: No Patient has homicidal ideation: No - Medical History Medical History: Negative Renal/ Medical History: Reports: Hx Ectopic . Denies: Hx Peritoneal Dialysis Past Surgical History: Reports: Hx Appendectomy, Hx Gynecologic Surgery - Removal of ectopic , Hx Tubal Ligation - Immunizations Immunizations up to date: Yes Hx Diphtheria, Pertussis, Tetanus Vaccination: Yes Review of Systems - Review of Systems Constitutional: No symptoms reported. denies: Fever, Recent illness EENT: No symptoms reported Cardiovascular: No symptoms reported Respiratory: No symptoms reported. denies: Cough, Short of breath Gastrointestinal: Abdominal pain. denies: Nausea Genitourinary: Hematuria. denies: Dysuria Female Genitourinary: Irregular period, Vaginal bleeding Musculoskeletal: No symptoms reported. denies: Back pain Skin: No symptoms reported Hematologic/Lymphatic: No symptoms reported Neurological/Psychological: No symptoms reported Physical Exam - Vital signs Vitals: Temp Pulse Resp BP Pulse Ox 98.2 F 62 18 125/67 100 01/17/19 15:04 01/17/19 15:04 01/17/19 15:04 01/17/19 15:04 01/17/19 15:04 - General General appearance: Appears well, Alert In distress: None - HEENT Head: Normocephalic, Atraumatic Eyes: Normal Conjunctiva: Normal Nasal: Normal Mouth/Lips: Normal Mucous membranes: Normal Neck: Normal, Supple - Respiratory Respiratory status: No respiratory distress Chest status: Nontender Breath sounds: Normal. No: Rales, Rhonchi, Stridor, Wheezing Chest palpation: Normal - Cardiovascular Rhythm: Regular Heart sounds: S1 appreciated, S2 appreciated - Abdominal Inspection: Normal Distension: No distension Bowel sounds: Normal Tenderness: Tender - Suprapubic, lower pelvic. No: McBurney's point, Henson's sign, Guarding Organomegaly: No organomegaly - Genitourinary External exam: Normal Speculum exam: Cervix closed Vaginal bleeding: Mild Bimanuel exam: Normal. No: Cervical motion tender - Back Back: Normal, Nontender. No: CVA tenderness - Extremities General upper extremity: Normal inspection, Normal ROM General lower extremity: Normal inspection, Normal ROM - Neurological Neuro grossly intact: Yes Cognition: Normal Tong Coma Scale Eye Opening: Spontaneous Tong Coma Scale Verbal: Oriented Tong Coma Scale Motor: Obeys Commands Tong Coma Scale Total: 15 - Psychological Associated symptoms: Normal affect, Normal mood - Skin Skin Temperature: Warm Skin Moisture: Dry Skin Color: Normal Course - Re-evaluation Re-evalutation: 01/17/19 20:38 Offered patient prophylactic treatment for STI, patient declines at this time. Patient states she prefers to follow-up with the health department if needed. 01/17/19 21:46 Provider went to inform patient of results, patient not in room. RN states that patient eloped. RN encouraged to call patient to notify her that she has prescriptions waiting her for her and ask if she would like to receive her discharge paperwork. - Vital Signs Vital signs: Temp Pulse Resp BP Pulse Ox 98.2 F 65 16 136/74 H 100 01/17/19 20:38 01/17/19 20:38 01/17/19 20:38 01/17/19 20:38 01/17/19 20:38 - Laboratory Result Diagrams: 01/17/19 15:53 01/17/19 15:53 Laboratory results interpreted by me: 01/17/19 01/17/19 15:53 20:34 Urine Blood LARGE H Ur Leukocyte Esterase MODERATE H Chlamydia DNA (PCR) DETECTED H N.gonorrhoeae DNA (PCR) DETECTED H Labs- Entire Visit 01/17/19 01/17/19 01/17/19 15:53 15:53 15:53 WBC 7.0 RBC 4.79 Hgb 14.1 Hct 41.4 MCV 87 MCH 29.5 MCHC 34.1 RDW 12.5 Plt Count 262 Lymph % (Auto) 35.4 [place] % (Auto) 8.8 Eos % (Auto) 1.4 Baso % (Auto) 0.8 Absolute Neuts (auto) 3.7 Absolute Lymphs (auto) 2.5 Absolute Monos (auto) 0.6 Absolute Eos (auto) 0.1 Absolute Basos (auto) 0.1 Seg Neutrophils % 53.6 Sodium 139.0 Potassium 4.1 Chloride 103 Carbon Dioxide 28 Anion Gap 8 BUN 11 Creatinine 0.93 Est GFR ( Amer) > 60 Est GFR (MDRD) Non-Af > 60 Glucose 84 Calcium 9.6 Total Bilirubin 0.5 Direct Bilirubin 0.1 Neonat Total Bilirubin Not Reportable Neonat Direct Bilirubin Not Reportable Neonat Indirect Bili Not Reportable AST 20 ALT 13 Alkaline Phosphatase 81 Total Protein 7.4 Albumin 4.4 Urine Color Urine Appearance Urine pH Ur Specific [place] Urine Protein Urine Glucose (UA) Urine Ketones Urine Blood Urine Nitrite Urine Bilirubin Urine Urobilinogen Ur Leukocyte Esterase Urine WBC (Auto) Urine RBC (Auto) U Hyaline Cast (Auto) Urine Bacteria (Auto) Squamous Epi Cells Auto Urine Mucus (Auto) Urine Ascorbic Acid Urine HCG, Qual Epi Cells (Wet Prep) Bacteria (Wet Prep) Trichomonas (Wet Prep) Vaginal WBC Vaginal RBC Vaginal Yeast Chlamydia DNA (PCR) N.gonorrhoeae DNA (PCR) Blood Type O NEGATIVE Rhogam Indicated RHOGAM NOT REQUESTED 01/17/19 01/17/19 01/17/19 15:53 15:53 20:34 WBC RBC Hgb Hct MCV MCH MCHC RDW Plt Count Lymph % (Auto) [place] % (Auto) Eos % (Auto) Baso % (Auto) Absolute Neuts (auto) Absolute Lymphs (auto) Absolute Monos (auto) Absolute Eos (auto) Absolute Basos (auto) Seg Neutrophils % Sodium Potassium Chloride Carbon Dioxide Anion Gap BUN Creatinine Est GFR ( Amer) Est GFR (MDRD) Non-Af Glucose Calcium Total Bilirubin Direct Bilirubin Neonat Total Bilirubin Neonat Direct Bilirubin Neonat Indirect Bili AST ALT Alkaline Phosphatase Total Protein Albumin Urine Color STRAW Urine Appearance SLIGHTLY-CLOUDY Urine pH 6.0 Ur Specific [place] 1.008 Urine Protein NEGATIVE Urine Glucose (UA) NEGATIVE Urine Ketones NEGATIVE Urine Blood LARGE H Urine Nitrite NEGATIVE Urine Bilirubin NEGATIVE Urine Urobilinogen NEGATIVE Ur Leukocyte Esterase MODERATE H Urine WBC (Auto) 21 Urine RBC (Auto) 1 U Hyaline Cast (Auto) 1 Urine Bacteria (Auto) TRACE Squamous Epi Cells Auto 9 Urine Mucus (Auto) RARE Urine Ascorbic Acid NEGATIVE Urine HCG, Qual NEGATIVE Epi Cells (Wet Prep) 3+ EPITHELIALS SEEN Bacteria (Wet Prep) 4+ BACTERIA SEEN Trichomonas (Wet Prep) NO TRICHOMONAS SEEN Vaginal WBC FEW WBCS SEEN Vaginal RBC 4+ RBCS SEEN Vaginal Yeast NO YEAST SEEN Chlamydia DNA (PCR) N.gonorrhoeae DNA (PCR) Blood Type Rhogam Indicated 01/17/19 20:34 WBC RBC Hgb Hct MCV MCH MCHC RDW Plt Count Lymph % (Auto) [place] % (Auto) Eos % (Auto) Baso % (Auto) Absolute Neuts (auto) Absolute Lymphs (auto) Absolute Monos (auto) Absolute Eos (auto) Absolute Basos (auto) Seg Neutrophils % Sodium Potassium Chloride Carbon Dioxide Anion Gap BUN Creatinine Est GFR ( Amer) Est GFR (MDRD) Non-Af Glucose Calcium Total Bilirubin Direct Bilirubin Neonat Total Bilirubin Neonat Direct Bilirubin Neonat Indirect Bili AST ALT Alkaline Phosphatase Total Protein Albumin Urine Color Urine Appearance Urine pH Ur Specific [place] Urine Protein Urine Glucose (UA) Urine Ketones Urine Blood Urine Nitrite Urine Bilirubin Urine Urobilinogen Ur Leukocyte Esterase Urine WBC (Auto) Urine RBC (Auto) U Hyaline Cast (Auto) Urine Bacteria (Auto) Squamous Epi Cells Auto Urine Mucus (Auto) Urine Ascorbic Acid Urine HCG, Qual Epi Cells (Wet Prep) Bacteria (Wet Prep) Trichomonas (Wet Prep) Vaginal WBC Vaginal RBC Vaginal Yeast Chlamydia DNA (PCR) DETECTED H N.gonorrhoeae DNA (PCR) DETECTED H Blood Type Rhogam Indicated - Diagnostic Test Radiology reviewed: Reports reviewed Discharge - Discharge Clinical Impression: Dysmenorrhea, Bacterial vaginosis Urinary tract infection Qualifiers: Urinary tract infection type: site unspecified Hematuria presence: with hematuria Qualified Code(s): N39.0 - Urinary tract infection, site not specified Condition: Stable Disposition: HOME, SELF-CARE Instructions: Anti-Inflammatory Medication ([facility]), Cephalexin ([facility]), Dysmenorrhea ([facility]), Metronidazole ([facility]), Urinary Anesthetic Agent ([facility]), Urinary Tract Infection ([facility]), Vaginosis, Bacterial ([facility]) Additional Instructions: Return immediately for any new or worsening symptoms Followup with your primary care provider, call tomorrow to make a followup appointment Cultures are pending, will call if you need any different treatment Prescriptions: Metronidazole [Flagyl 500 mg Tablet] 500 mg PO BID #14 tablet Cephalexin Monohydrate [Keflex 500 mg Capsule] 500 mg PO BID 5 Days capsule Naproxen [Naprosyn 250 Nmg Tablet] 1 tab PO BID #14 tablet Referrals: [facility] [Provider Group] - Follow up as needed
[2019-01-17 17:16] LABS: APPEARANCE,URINE SLIGHTLY-CLOUDY; BILIRUBIN,URINE NEGATIVE (NEGATIVE); COLOR,URINE STRAW; GLUCOSE, URINE NEGATIVE (NEGATIVE); KETONES,URINE NEGATIVE (NEGATIVE); LEUKOCYTE ESTERASE,URINE MODERATE (NEGATIVE); NITRITE,URINE NEGATIVE (NEGATIVE); PROTEIN,URINE NEGATIVE (NEGATIVE); URINE SPECIFIC GRAVITY 1.008; UROBILINOGEN,URINE NEGATIVE mg/dL (<2.0)
--- NOTE | 2019-01-17 19:06 | RADIOLOGY REPORT (SQ) ---
EXAM DESCRIPTION: U/S NON OB PEL TV W/DOPPLER COMPLETED DATE/TIME: 01/17/2019 6:22 pm REASON FOR STUDY: pelvic pain COMPARISON: None. TECHNIQUE: Dynamic and static grayscale images acquired of the pelvis via transvaginal approach and recorded on PACS. Additional selected color Doppler and spectral images recorded. LIMITATIONS: None. FINDINGS: UTERUS: Contour normal. No mass. ENDOMETRIAL STRIPE: No focal or generalized thickening. No masses. CERVIX: No nabothian cysts. RIGHT OVARY AND DOPPLER: Normal size. No worrisome masses. Normal arterial vascular flow without evid ence for torsion. LEFT OVARY AND DOPPLER: Normal size. No worrisome masses. Normal arterial vascular flow without evide nce for torsion. FREE FLUID: None noted. OTHER: No other significant finding. MEASUREMENTS: UTERUS: 8.4 x 4.9 x 4.5 cm ENDOMETRIAL STRIPE: 5 mm RIGHT OVARY: 3.9 x 2.4 x 1.8 cm LEFT OVARY: 3.7 x 2.4 x 1.8 cm IMPRESSION: NORMAL TRANSVAGINAL PELVIC ULTRASOUND. TECHNICAL DOCUMENTATION: JOB ID: [id number]- All Rights Reserved Rev-08/18 Reading location - IP/workstation name: [email or web address]
[2019-01-17] MEDS ORDERED: IBUPROFEN 800 MG TABLET PO ONE (20:18)
[2019-01-17] MEDS ORDERED: PHENAZOPYRIDINE HCL 200 MG TABLET PO ONE (20:18)
[2019-01-17] MEDS ORDERED: CEPHALEXIN 500 MG CAPSULE PO ONE (20:37)
[2019-01-17 20:43] VITALS: BP 136/74
[2019-01-17 20:54] LABS: BACTERIA (WET MOUNT) 4+ BACTERIA SEEN; EPITHELIALS (WET MOUNT) 3+ EPITHELIALS SEEN; RBCS (WET MOUNT) 4+ RBCS SEEN; T.VAGINALIS (WET MOUNT) NO TRICHOMONAS SEEN; WBCS (WET MOUNT) FEW WBCS SEEN; YEAST (WET MOUNT) NO YEAST SEEN
[2019-01-17 22:20] LABS: CHLAM PCR DETECTED (NOT DETECT)
== END 2019-01-17 21:42 | disposition home or self-care (01) ==
LOC: ER 14:20
DX: N39.0 Urinary tract infection, site not specified (principal); N76.0 Acute vaginitis; B96.89 Other specified bacterial agents as the cause of diseases classified elsewhere; N94.6 Dysmenorrhea, unspecified; R31.9 Hematuria, unspecified
CPT/HCPCS: 36415; 76830; 80053; 81001; 81025; 85025; 86900; 86901; 87210; 87491; 87591; 93976; 99284

== ENCOUNTER 2019-02-15 07:54 | Emergency (ER) | payer SELFPAY ==
--- NOTE | 2019-02-15 08:45 | RADIOLOGY REPORT (SQ) ---
EXAM DESCRIPTION: CHEST SINGLE VIEW COMPLETED DATE/TIME: 02/15/2019 8:36 am REASON FOR STUDY: chest pain COMPARISON: 09/22/2018 EXAM PARAMETERS: NUMBER OF VIEWS: One view. TECHNIQUE: Single frontal radiographic view of the chest acquired. RADIATION DOSE: NA LIMITATIONS: None. FINDINGS: LUNGS AND PLEURA: No opacities, masses or pneumothorax. No pleural effusion. Nodular dens ity overlying the lateral aspect of the left base is consistent with nipple shadow. MEDIASTINUM AND HILAR STRUCTURES: No masses. Contour normal. HEART AND VASCULAR STRUCTURES: Heart normal in size. Normal vasculature. BONES: No acute findings. HARDWARE: None in the chest. OTHER: No other significant finding. IMPRESSION: NO ACUTE RADIOGRAPHIC FINDING IN THE CHEST. TECHNICAL DOCUMENTATION: JOB ID: [id number]- All Rights Reserved Reading location - IP/workstation name: [email or web address]
[2019-02-15 10:27] LABS: ABSOLUTE BASOPHILS # (AUTO) 0.1 10^3/uL (0.0-0.2); ABSOLUTE EOSINOPHILS # (AUTO) 0.1 10^3/uL (0.0-0.6); ABSOLUTE LYMPHOCYTES (AUTO) 2.2 10^3/uL (0.5-4.7); ABSOLUTE NEUT (AUTO) 4.7 10^3/uL (1.7-8.2); TOTAL CELLS COUNTED % (AUTO) 100 %
[2019-02-15 10:35] LABS: ABSOLUTE MONOCYTES (AUTO) 0.7 10^3/uL (0.1-1.4); BASOPHILS % (AUTO) 0.7 % (0-2); EOSINOPHILS % (AUTO) 1.7 % (0-6); HEMATOCRIT 37.7 % (36.0-47.0); HEMOGLOBIN 13.3 g/dL (12.0-15.5); LYMPHOCYTES % (AUTO) 28.3 % (13-45); MEAN CORPUSCULAR HEMOGLOBIN 29.9 pg (27.0-33.4); MEAN CORPUSCULAR HGB CONC 35.2 g/dL (32.0-36.0); MEAN CORPUSCULAR VOLUME 85 fl (80-97); PLATELET COUNT 243 10^3/uL (150-450); RED BLOOD COUNT 4.43 10^6/uL (3.72-5.28); RED CELL DISTRIBUTION WIDTH 12.6 % (11.5-14.0); SEGMENTED NEUTROPHILS % (AUTO) 60.3 % (42-78); WHITE BLOOD COUNT 7.8 10^3/uL (4.0-10.5)
[2019-02-15 10:47] LABS: ANION GAP 6 (5-19); BLOOD UREA NITROGEN 11 mg/dL (7-20); CALCIUM 9.1 mg/dL (8.4-10.2); CARBON DIOXIDE 28 mmol/L (22-30); CHLORIDE 106 mmol/L (98-107); GLUCOSE 84 mg/dL (75-110); POTASSIUM 4.5 mmol/L (3.6-5.0)
[2019-02-15 12:15] VITALS: BP 97/63
--- NOTE | 2019-02-15 12:27 | ER Document Report ---
Entered by JEAN PAUL SCHAFFER SCRIBE 02/15/19 1220 Acting as scribe for:JAN HAYNES IV, MD ED General - General Chief Complaint: Cough Stated Complaint: CHEST PAIN Time Seen by Provider: 02/15/19 10:41 Primary Care Provider: JULIA TERAN MD [HONORARY] - Follow up in 3-5 days Mode of Arrival: Ambulatory Information source: Patient Notes: 28 year old female that presents to the emergency department today with complaints of a cough with associated pleuritic chest pain. Patient states she has allergies and she thinks that may be what is causing her cough. Patient states the chest wall pain did not begin until yesterday after several days of coughing. TRAVEL OUTSIDE OF THE [place] IN LAST 30 DAYS: No - Related Data Allergies/Adverse Reactions: fentanyl Allergy (Verified 01/17/19 15:25) Past Medical History - General Information source: Patient, [facility] Records - Social History Smoking Status: Unknown if Ever Smoked Frequency of alcohol use: None Drug Abuse: None Lives with: Family Family History: Reviewed & Not Pertinent Patient has suicidal ideation: No Patient has homicidal ideation: No Renal/ Medical History: Reports: Hx Ectopic Past Surgical History: Reports: Hx Appendectomy, Hx Gynecologic Surgery - Removal of ectopic , Hx Tubal Ligation - Immunizations Immunizations up to date: Yes Hx Diphtheria, Pertussis, Tetanus Vaccination: Yes Review of Systems - Review of Systems Constitutional: No symptoms reported EENT: No symptoms reported Cardiovascular: No symptoms reported Respiratory: See HPI, Cough - with chest wall pain Gastrointestinal: No symptoms reported Genitourinary: No symptoms reported Female Genitourinary: No symptoms reported Musculoskeletal: No symptoms reported Skin: No symptoms reported Hematologic/Lymphatic: No symptoms reported Neurological/Psychological: No symptoms reported -: Yes All other systems reviewed and negative Physical Exam - Vital signs Vitals: Temp Pulse Resp BP Pulse Ox 98.1 F 58 L 16 112/70 100 02/15/19 08:05 02/15/19 08:05 02/15/19 08:05 02/15/19 08:05 02/15/19 08:05 - Notes Notes: Physical Exam: General: Alert, appears well. HEENT: Normocephalic. Atraumatic. PERRL. Extraocular movements intact. Oropharynx clear. Neck: Supple. Non-tender. Respiratory: No respiratory distress. Clear and equal breath sounds bilaterally. Cardiovascular: Regular rate and rhythm. Abdominal: Normal Inspection. Non-tender. No distension. Normal Bowel Sounds. Back: No gross abnormalities. Extremities: Moves all four extremities. Upper extremities: Normal inspection. Normal ROM. Lower extremities: Normal inspection. No edema. Normal ROM. Neurological: Normal cognition. AAOx4. Normal speech. Psychological: Normal affect. Normal Mood. Skin: Warm. Dry. Normal color. Course - Vital Signs Vital signs: Temp Pulse Resp BP Pulse Ox 98.1 F 61 15 97/63 L 100 02/15/19 12:14 02/15/19 12:14 02/15/19 12:14 02/15/19 12:14 02/15/19 08:05 - Laboratory Result Diagrams: 02/15/19 10:00 02/15/19 10:00 - Diagnostic Test Radiology reviewed: Reports reviewed - EKG Interpretation by Me Additional EKG results interpreted by me: 02/15/19 12:20 EKG performed at 0759 hrs. on 02/15/2019 was interpreted by this MD. Impression : Sinus bradycardia with a rate of 56 normal axis, P waves proceed QRS complexes, QRS complexes appear narrow, there are no patterns of ST depression or elevation suggestive of acute myocardial ischemia or infarction. Impression sinus bradycardia, otherwise unremarkable EKG. Discharge - Discharge Clinical Impression: Acute bacterial bronchitis Condition: Good Disposition: HOME, SELF-CARE Instructions: Bronchitis ([facility]) Additional Instructions: Return to the Emergency Department without delay if any worse.Bronchitis You have acute bronchitis. This disease is an infection or inflammation of the air passageways in your lungs. Symptoms usually include cough, low grade fever, shortness of breath, and wheezing. The cough usually persists for a couple of weeks. Most cases of bronchitis get better without antibiotics. We prescribe antibiotics when we believe bacteria are damaging your airways, or if there's h igh risk the bronchitis will worsen into pneumonia. Increase your fluid intake. A cool mist humidifier may make your lungs more comfortable. An expectorant (cough medicine that loosens phlegm) can help. If you smoke, STOP!!! Recovery from bronchitis can be somewhat slow, but you should see improvement within a day or two. Repeated episodes of bronchitis may result in lung damage -- for example, chronic bronchitis, recurrent pneumonias, or emphysema. Call the doctor if you develop increasing fever, shortness of breath, chest pain, bloody sputum, or otherwise worsen. If you have not improved at all after several days, contact the physician. HOME CARE INSTRUCTIONS & INFORMATION: Thank you for choosing us for your medical needs. We hope you're satisfied with the care you received. After you leave, you must properly care for your problem and, at the same time, observe its progress. Any condition can change. Some illnesses can change rapidly over hours or days. If your condition worsens, return to the Emergency Department or see your physician promptly. ABOUT YOUR X-RAYS AND EKG'S: If you had an EKG or X-rays taken, they have been read by the Emergency Physician. The X-rays and EKG's will also be read by a Radiologist or Material Handler within 24 hours. If discrepancies are noted, you will be notified by telephone. Please be certain the ED has a correct telephone number & address where you can be reached. Also, realize that some fractures or abnormalities do not show up on initial X-rays. If your symptoms continue, see your physician. ABOUT YOUR LABORATORY TEST: If you had laboratory tests, the results have been reviewed by the Emergency Physician. Some test results (for example cultures) may not be available for several days. You will be contacted if any test result shows you need additional treatment. Please be certain the ED has a correct telephone number and address where you can be reached. ABOUT YOUR MEDICATIONS: You will receive instructions on how to take your medicine on the prescription label you receive. Additional information may be provided by the Pharmacy. If you have questions afterwards, call the ED for clarification or further instructions. Some prescribed medications may cause drowsiness. Do not perform tasks such as driving a car or operating machinery without consulting your Pharmacist. If you feel you need a refill of pain medication, your condition will need re-evaluation. Please do not call for a refill of any medication. ABOUT YOUR SIGNATURE: Signature of this document acknowledges to followin. Understanding that you received emergency treatment and that you may be released before al medical problems are known or treated. Please be certain the ED has a correct phone number & address where you can be reached. 2. Acknowledgement that you will arrange for follow-up care as recommended. 3. Authorization for the Emergency Physician to provide information to your follow-up Physician in order to maximize your care. AT ANY TIME, IF YOUR SYMPTOMS CHANGE SIGNIFICANTLY OR WORSEN OR YOU DEVELOP NEW SYMPTOMS, RETURN TO THE EMERGENCY DEPARTMENT IMMEDIATELY FOR RE-EVALUATION. OUR GOAL IS TO PROVIDE EXCELLENT MEDICAL CARE! WE HOPE THAT WE HAVE MET YOUR EXPECTATIONS DURING YOUR EMERGENCY DEPARTMENT VISIT AND THAT YOU FEEL YOU HAVE RECEIVED EXCELLENT CARE! Return to the Emergency Department without delay if any worse. Prescriptions: Prednisone [Deltasone 20 mg Tablet] 3 tab PO DAILY 5 Days #15 tablet Albuterol Sulfate [Proair HFA Inhalation Aerosol 8.5 gm MDI] 2 puff IH Q4H PRN #1 mdi PRN Reason: Azithromycin [Zithromax 250 mg Tablet] 250 mg PO ASDIR PRN #6 tablet PRN Reason: Referrals: JULIA TERAN MD [HONORARY] - Follow up in 3-5 days I personally performed the services described in the documentation, reviewed and edited the documentation which was dictated to the scribe in my presence, and it accurately records my words and actions.
--- NOTE | 2019-02-16 11:48 | EKG REPORT ---
SEVERITY:- BORDERLINE ECG - SINUS RHYTHM BORDERLINE T ABNORMALITIES, ANTERIOR LEADS : Confirmed by: Amy Mooney MD 16-Feb-2019 11:48:00
== END 2019-02-15 12:33 | disposition home or self-care (01) ==
LOC: ER 07:54
DX: J20.9 Acute bronchitis, unspecified (principal); B96.89 Other specified bacterial agents as the cause of diseases classified elsewhere; R05 Cough; R07.89 Other chest pain; R00.1 Bradycardia, unspecified; Z88.5 Allergy status to narcotic agent
CPT/HCPCS: 36415; 71045; 80048; 84484; 85025; 93005; 93010; 99285

== ENCOUNTER 2019-03-01 14:18 | Emergency (ER) | payer SELFPAY ==
--- NOTE | 2019-03-01 15:02 | ER Document Report ---
ED Medical Screen (RME) - General Chief Complaint: Flank Pain Stated Complaint: DIZZYNESS/FEVER/ABDOMINAL PAIN Time Seen by Provider: 03/01/19 14:54 Mode of Arrival: Ambulatory Information source: Patient Notes: 28-year-old female presented to ED for complaint of right flank, upper abdominal pain since yesterday. She states yesterday her temperature was 102 and she took Tylenol and it did come down. She states she has not had any Tylenol or Motrin since then. She states she is having nausea. She states she is having pain all the way up into the back where her kidneys are. States she has not been able to eat due to the pain and nausea. She states she woke up 4 times during the night due to sweating. She states she has been having cold chills and sweats since the pain started. States the pain started last night on the right side now at times is on both sides I have greeted and performed a rapid initial assessment of this patient. A comprehensive ED assessment and evaluation of the patient, analysis of test results and completion of medical decision making process will be conducted by an additional ED providers. TRAVEL OUTSIDE OF THE [place] IN LAST 30 DAYS: No - Related Data Allergies/Adverse Reactions: fentanyl Allergy (Verified 03/01/19 14:55) Past Medical History - Social History Cigarette use (# per day): No Frequency of alcohol use: Rare Drug Abuse: None Lives with: Friend Family history: Reviewed & Not Pertinent - Past Medical History Cardiac Medical History: Reports: None Pulmonary Medical History: Reports: None EENT Medical History: Reports: None Neurological Medical History: Reports: None Endocrine Medical History: Reports: None Renal/ Medical History: Reports: Hx Ectopic . Denies: Hx Peritoneal Dialysis Malignancy Medical History: Reports: None GI Medical History: Reports: None Musculoskeltal Medical History: Reports None Skin Medical History: Reports None Psychiatric Medical History: Reports: None Traumatic Medical History: Reports: None Infectious Medical History: Reports: None Past Surgical History: Reports: Hx Appendectomy, Hx Gynecologic Surgery - Removal of ectopic , Hx Tubal Ligation - Immunizations Immunizations up to date: Yes Hx Diphtheria, Pertussis, Tetanus Vaccination: Yes Physical Exam - Vital signs Vitals: Temp Pulse Resp BP Pulse Ox 97.8 F 88 24 H 126/67 H 100 03/01/19 14:22 03/01/19 14:22 03/01/19 14:22 03/01/19 14:22 03/01/19 14:22 Course - Vital Signs Vital signs: Temp Pulse Resp BP Pulse Ox 97.8 F 88 24 H 126/67 H 100 03/01/19 14:22 03/01/19 14:22 03/01/19 14:22 03/01/19 14:22 03/01/19 14:22
[2019-03-01 15:26] LABS: ABSOLUTE LYMPHOCYTES (AUTO) 1.5 10^3/uL (0.5-4.7); ABSOLUTE MONOCYTES (AUTO) 1.2 10^3/uL (0.1-1.4); ABSOLUTE NEUT (AUTO) 8.7 10^3/uL (1.7-8.2); BASOPHILS % (AUTO) 0.3 % (0-2); EOSINOPHILS % (AUTO) 0.4 % (0-6); HEMATOCRIT 39.2 % (36.0-47.0); HEMOGLOBIN 13.6 g/dL (12.0-15.5); LYMPHOCYTES % (AUTO) 12.7 % (13-45); MEAN CORPUSCULAR HEMOGLOBIN 30.2 pg (27.0-33.4); MEAN CORPUSCULAR HGB CONC 34.8 g/dL (32.0-36.0); MEAN CORPUSCULAR VOLUME 87 fl (80-97); MONOCYTES % (AUTO) 10.6 % (3-13); PLATELET COUNT 226 10^3/uL (150-450); RED BLOOD COUNT 4.51 10^6/uL (3.72-5.28); RED CELL DISTRIBUTION WIDTH 12.3 % (11.5-14.0); TOTAL CELLS COUNTED % (AUTO) 100 %; WHITE BLOOD COUNT 11.4 10^3/uL (4.0-10.5)
[2019-03-01 15:40] LABS: APPEARANCE,URINE TURBID; BILIRUBIN,URINE NEGATIVE (NEGATIVE); COLOR,URINE YELLOW; GLUCOSE, URINE NEGATIVE (NEGATIVE); KETONES,URINE NEGATIVE (NEGATIVE); PROTEIN,URINE 100 mg/dL (NEGATIVE); URINE SPECIFIC GRAVITY 1.013; UROBILINOGEN,URINE NEGATIVE mg/dL (<2.0)
[2019-03-01 15:43] LABS: ALBUMIN 4.4 g/dL (3.5-5.0); ALKALINE PHOSPHATASE 94 U/L (38-126); ANION GAP 11 (5-19); ASPARTATE AMINO TRANSFERASE 17 U/L (14-36); BILIRUBIN,DIRECT 0.1 mg/dL (0.0-0.4); BILIRUBIN,TOTAL 0.9 mg/dL (0.2-1.3); BLOOD UREA NITROGEN 13 mg/dL (7-20); CALCIUM 10.2 mg/dL (8.4-10.2); CARBON DIOXIDE 28 mmol/L (22-30); CHLORIDE 103 mmol/L (98-107); GLUCOSE 84 mg/dL (75-110); POTASSIUM 4.3 mmol/L (3.6-5.0); TOTAL PROTEIN 7.6 g/dL (6.3-8.2)
[2019-03-01] MEDS ORDERED: NORMAL SALINE 1000 ML 1,000 ML IV ONE (15:47)
[2019-03-01] MEDS ORDERED: KETOROLAC TROMETHAMINE INJ/PF 30 MG/1 ML SDV IV ONE (15:59)
[2019-03-01] MEDS ORDERED: ONDANSETRON HCL INJ/PF 4 MG/2 ML SDV IV ONE (15:59)
[2019-03-01] MEDS ORDERED: ACETAMINOPHEN 325 MG TABLET PO ONE (15:59)
--- NOTE | 2019-03-01 16:04 | ER Document Report ---
ED GI/ - General Chief Complaint: Flank Pain Stated Complaint: DIZZYNESS/FEVER/ABDOMINAL PAIN Time Seen by Provider: 03/01/19 14:54 Mode of Arrival: Ambulatory Notes: Patient is a 28-year-old female who presents to the emergency department with a chief complaint of bilateral flank pain. Patient reports that she has had this pain for 2 days. Patient reports she has had urinary frequency and at times difficulty emptying her bladder completely. Patient reports yesterday she had a temperature of 102 at home. Patient reports nausea without vomiting or diarrhea. Patient states she has never had this type of pain before. Patient denies any past medical or surgical history. Patient denies abdominal pain. TRAVEL OUTSIDE OF THE [place] IN LAST 30 DAYS: No - Related Data Allergies/Adverse Reactions: fentanyl Allergy (Verified 03/01/19 14:55) Past Medical History - General Information source: Patient - 2 - Social History Smoking Status: Never Smoker Cigarette use (# per day): No Chew tobacco use (# tins/day): No Frequency of alcohol use: Rare Drug Abuse: None Lives with: Friend Family History: Reviewed & Not Pertinent Patient has suicidal ideation: No Patient has homicidal ideation: No - Past Medical History Cardiac Medical History: Reports: None Pulmonary Medical History: Reports: None EENT Medical History: Reports: None Neurological Medical History: Reports: None Endocrine Medical History: Reports: None Renal/ Medical History: Reports: Hx Ectopic . Denies: Hx Peritoneal Dialysis Malignancy Medical History: Reports: None GI Medical History: Reports: None Musculoskeletal Medical History: Reports None Skin Medical History: Reports None Psychiatric Medical History: Reports: None Traumatic Medical History: Reports: None Infectious Medical History: Reports: None Past Surgical History: Reports: Hx Appendectomy, Hx Gynecologic Surgery - Removal of ectopic , Hx Tubal Ligation - Immunizations Immunizations up to date: Yes Hx Diphtheria, Pertussis, Tetanus Vaccination: Yes Review of Systems - Review of Systems Constitutional: See HPI EENT: No symptoms reported Cardiovascular: No symptoms reported Respiratory: No symptoms reported Gastrointestinal: See HPI Genitourinary: See HPI Female Genitourinary: No symptoms reported Musculoskeletal: No symptoms reported Skin: No symptoms reported Hematologic/Lymphatic: No symptoms reported Neurological/Psychological: No symptoms reported Physical Exam - Vital signs Vitals: Temp Pulse Resp BP Pulse Ox 97.8 F 88 24 H 126/67 H 100 03/01/19 14:22 03/01/19 14:22 03/01/19 14:22 03/01/19 14:22 03/01/19 14:22 - Notes Notes: GENERAL: Well-appearing, well-nourished and in no acute distress. HEAD: Atraumatic, normocephalic. EYES: Pupils equal round and reactive to light, extraocular movements intact, sclera anicteric, conjunctiva are normal. ENT: Nares patent, oropharynx clear without exudates. Moist mucous membranes. NECK: Normal range of motion, supple without lymphadenopathy or JVD. LUNGS: Breath sounds clear to auscultation bilaterally and equal. No wheezes rales or rhonchi. HEART: Regular rate and rhythm without murmurs, rubs or gallops. ABDOMEN: Soft, nontender, normoactive bowel sounds. No guarding, no rebound. No masses appreciated. BACK: No cervical, thoracic, lumbar midline tenderness. No saddle anesthesia, normal distal neurovascular exam. Bilateral CVA tenderness. GENITOURINARY: Deferred. EXTREMITIES: Normal range of motion, no pitting or edema. No clubbing or cyanosis. NEUROLOGICAL: Cranial nerves II through XII grossly intact. Normal speech, nor mal gait. PSYCH: Normal mood, normal affect. SKIN: Warm, Dry, normal turgor, no rashes or lesions noted. Course - Re-evaluation Re-evalutation: 03/01/19 16:23 Patient's abdominal ultrasound was negative. Patient symptoms are consistent with a pyelonephritis. Will give IV fluids, IV Rocephin as well as Toradol and Tylenol. Patient does appear uncomfortable but is not nontoxic-appearing. There is no tachycardia or hypotension. 03/01/19 16:45 Patient is actively vomiting. Will give a dose of Reglan. Patient does have IV fluids are infusing. Will reevaluate. 03/01/19 17:30 After receiving the dose of Reglan patient is not vomiting and has been tolerating sips of the Luz mist. Patient reports feeling better. Plan is to discharge the patient with a diagnosis of pyelonephritis, give antiemetic prescription and antibiotics to treat the infection. I did inform the patient she can start the antibiotics tomorrow as we did give her a dose of IV antibiotics here in the emergency department. Patient verbalized understanding was given strict return precautions. 03/01/19 18:09 Blood pressure recheck was in the low 90s systolic. Will give another liter of IV fluids and reevaluate. Patient is resting comfortably without vomiting and continues to tolerate liquids. 03/01/19 21:41 Patient was discharged prior to reevaluation. Nurse reports that the patient was feeling much better and tolerating liquids. - Vital Signs Vital signs: Temp Pulse Resp BP Pulse Ox 98.7 F 88 18 92/64 L 99 03/01/19 17:50 03/01/19 17:50 03/01/19 17:50 03/01/19 17:50 03/01/19 17:50 - Laboratory Result Diagrams: 03/01/19 15:07 03/01/19 15:07 Laboratory results interpreted by me: 03/01/19 03/01/19 15:07 15:07 WBC 11.4 H Lymph % (Auto) 12.7 L Absolute Neuts (auto) 8.7 H Urine Protein 100 H Urine Blood SMALL H Urine Nitrite (Reflex) POSITIVE H Leukocyte Esterase Rfl LARGE H 03/01/19 16:23 Patient does not have a significant leukocytosis. Patient's kidney function is within normal limits as well as her electrolytes. Patient does have positive nitrites in the urine and a large amount of leukocytes with greater than 182 white blood cells. Laboratory 03/01/19 03/01/19 03/01/19 15:07 15:07 15:07 WBC 11.4 H RBC 4.51 Hgb 13.6 Hct 39.2 MCV 87 MCH 30.2 MCHC 34.8 RDW 12.3 Plt Count 226 Lymph % (Auto) 12.7 L [place] % (Auto) 10.6 Eos % (Auto) 0.4 Baso % (Auto) 0.3 Absolute Neuts (auto) 8.7 H Absolute Lymphs (auto) 1.5 Absolute Monos (auto) 1.2 Absolute Eos (auto) 0.0 Absolute Basos (auto) 0.0 Seg Neutrophils % 76.0 Sodium 141.7 Potassium 4.3 Chloride 103 Carbon Dioxide 28 Anion Gap 11 BUN 13 Creatinine 0.92 Est GFR ( Amer) > 60 Est GFR (MDRD) Non-Af > 60 Glucose 84 Calcium 10.2 Total Bilirubin 0.9 Direct Bilirubin 0.1 Neonat Total Bilirubin Not Reportable Neonat Direct Bilirubin Not Reportable Neonat Indirect Bili Not Reportable AST 17 ALT 11 Alkaline Phosphatase 94 Total Protein 7.6 Albumin 4.4 Lipase 56.3 Serum HCG, Qual NEGATIVE Urine Color Urine Appearance Urine pH Ur Specific [place] Urine Protein Urine Glucose (UA) Urine Ketones Urine Blood Urine Nitrite (Reflex) Urine Bilirubin Urine Urobilinogen Leukocyte Esterase Rfl Urine RBC (Auto) Urine Bacteria (Auto) Urine WBC (Reflex) Urine WBC Clumps Squamous Epi Cells Auto U Non-Squamous Epis Auto Urine Mucus (Auto) Urine Ascorbic Acid 03/01/19 15:07 WBC RBC Hgb Hct MCV MCH MCHC RDW Plt Count Lymph % (Auto) [place] % (Auto) Eos % (Auto) Baso % (Auto) Absolute Neuts (auto) Absolute Lymphs (auto) Absolute Monos (auto) Absolute Eos (auto) Absolute Basos (auto) Seg Neutrophils % Sodium Potassium Chloride Carbon Dioxide Anion Gap BUN Creatinine Est GFR ( Amer) Est GFR (MDRD) Non-Af Glucose Calcium Total Bilirubin Direct Bilirubin Neonat Total Bilirubin Neonat Direct Bilirubin Neonat Indirect Bili AST ALT Alkaline Phosphatase Total Protein Albumin Lipase Serum HCG, Qual Urine Color YELLOW Urine Appearance TURBID Urine pH 5.0 Ur Specific [place] 1.013 Urine Protein 100 H Urine Glucose (UA) NEGATIVE Urine Ketones NEGATIVE Urine Blood SMALL H Urine Nitrite (Reflex) POSITIVE H Urine Bilirubin NEGATIVE Urine Urobilinogen NEGATIVE Leukocyte Esterase Rfl LARGE H Urine RBC (Auto) 50 Urine Bacteria (Auto) 1+ Urine WBC (Reflex) > 182 Urine WBC Clumps MANY Squamous Epi Cells Auto 3 U Non-Squamous Epis Auto 1 Urine Mucus (Auto) RARE Urine Ascorbic Acid NEGATIVE - Diagnostic Test Radiology reviewed: Reports reviewed Radiology results interpreted by me: 03/01/19 16:23 Abdomen Ultrasound 03/01/19 15:02 IMPRESSION: NORMAL RIGHT UPPER QUADRANT ULTRASOUND. Discharge - Discharge Clinical Impression: Pyelonephritis, Nausea, Dysuria Condition: Stable Disposition: HOME, SELF-CARE Additional Instructions: PYELONEPHRITIS: Your evaluation shows evidence of pyelonephritis. This is an infection in the kidney. Typical symptoms are fever, pain in the flank, pain on urination, and frequent urination. Many cases of pyelonephritis can be treated at home. Hospital care may be necessary for patients who are very ill, or elderly or . Pyelonephritis is treated with antibiotics. Be sure to take all the medication as prescribed. Drink plenty of liquids (about three quarts per day). You may take acetaminophen for fever. You should feel significantly improved within two days. You should have a recheck of your urine in about one week to insure that the infection is gone. Return for a re-examination if your symptoms worsen in any way -- such as high fever, shaking chills, severe weakness or dizziness, severe pain, or inability to pass your urine. TORADOL INJECTION: You have been given an injection of ketorolac tromethamine (Toradol). This is an excellent, safe drug for pain control. It also has potent antiinflammatory action. You should have significant pain relief within about one hour. Toradol is not addicting and is non-sedating. It does not interfere with driving or work. Call or return if you develop itching, hives, shortness of breath, or rash. ANTINAUSEA MEDICATION: You have been given a medication to suppress nausea and vomiting. This type of medication can be given as a shot, pill, or suppository. It will usually last for many hours. Pills and shots usually last six to eight hours, suppositories last about 12 hours. For the typical illness, only one or two doses of the medication may be necessary. Mild lightheadedness may occur. This type of medicine can cause drowsiness. Do not drive or operate dangerous machinery while under its influence. Do not mix with alcohol. See your doctor at once if you have muscle spasms or tightness, or uncontrollable motions (particularly of the neck, mouth, or jaw). Persistent vomiting or severe lightheadedness should also be evaluated by the physician. ANTIBIOTIC THERAPY: You have been given an antibiotic prescription. It's important that you take all the medication, unless instructed otherwise by your physician. Failure to complete the entire course can result in relapse of your condition. Common side effects of antibiotics include nausea, intestinal cramping, or diarrhea. Women may develop vaginal yeast infections, and babies can get yeast (thrush) in the mouth following the use of antibiotics. Contact your physician if you develop significant side effects from this medication. Allergy to this antibiotic can result in hives, wheezing, faintness, or itching. If symptoms of allergy occur, stop the medication and call the doctor. ROCEPHIN: You have been given an injection of an antibiotic called Rocephin (cef triaxone). Sometimes the injection must be combined with antibiotic pills. For some infections, such as an uncomplicated ear infection, Rocephin provides all the antibiotic that's needed. The antibiotic will be in your body for about two days. For serious infections, we usually repeat doses of Rocephin daily. Side effects are very unusual following a shot. Women may develop vaginal yeast infections, and babies can get yeast (thrush) in the mouth following the use of antibiotics. Contact your physician if you have symptoms with this medication. Allergy to this antibiotic can result in hives, wheezing, faintness, or itching. If symptoms of allergy occur, call the doctor at once. KEFLEX The antibiotic you've been prescribed is a member of the cephalosporin class. This type of antibiotic covers a wide variety of infections, including those of the skin, lungs, and urinary tract. It's useful for staph infections. This antibiotic is slightly similar to the penicillin family. In rare cases, a person who is allergic to penicillin will also be allergic to this medication. If you have had a severe allergic reaction to penicillin, and have not taken this antibiotic since that time, notify your doctor. Antibiotics which cover many germs ("broad spectrum" antibiotics) are more likely to cause diarrhea or "yeast" infections. Women prone to vaginal yeast problems may suffer an attack after taking this antibiotic. In infants, oral thrush (white spots "stuck" on the cheek) or yeast diaper rash may result. See your doctor if these problems occur. Call at once if you develop itching, hives, shortness of breath, or lightheadedness. USE OF ACETAMINOPHEN (Tylenol): Acetaminophen may be taken for pain relief or fever control. It's much safer than aspirin, offering a wider range of "safe" dosages. It is safe during . Some brand names are Tylenol, Panadol, Datril, Anacin 3, Tempra, and Liquiprin. Acetaminophen can be repeated every four hours. The following are maximum recommended dosages: >89 pounds or adults 650 mg to 900 mg Acetaminophen can be repeated every four hours. Maximum dose not to exceed 4000 mg a day. FOLLOW-UP CARE: If you have been referred to a physician for follow-up care, call the physicians office for an appointment as you were instructed or within the next two days. If you experience worsening or a significant change in your symptoms, notify the physician immediately or return to the Emergency Department at any time for re-evaluation. Prescriptions: Cephalexin [Keflex] 500 mg PO BID 14 Days #28 capsule Ketorolac Tromethamine [Toradol 10 mg Tablet] 10 mg PO TID PRN #21 tablet PRN Reason: Forms: Return to Work
--- NOTE | 2019-03-01 16:13 | RADIOLOGY REPORT (SQ) ---
EXAM DESCRIPTION: U/S ABDOMEN LIMITED W/O DOP COMPLETED DATE/TIME: 03/01/2019 4:03 pm REASON FOR STUDY: Right upper quadrant/flank pain COMPARISON: 09/22/2018 TECHNIQUE: Dynamic and static grayscale images acquired of the abdomen and recorded on PACS. Kirti nickerson selected color Doppler and spectral images recorded. LIMITATIONS: None. FINDINGS: PANCREAS: No masses. Visualized pancreatic duct normal caliber. LIVER: No masses. Echotexture normal. LIVER VASCULATURE: Normal directional flow of the main portal vein and hepatic veins. GALLBLADDER: No stones. Normal wall thickness. No pericholecystic fluid. ULTRASOUND-DETECTED FERRER'S SIGN: Negative. INTRAHEPATIC DUCTS AND COMMON DUCT: CBD and intrahepatic ducts normal caliber. No filling defects. INFERIOR VENA CAVA: Normal flow. AORTA: No aneurysm. RIGHT KIDNEY: Normal size. Normal echogenicity. No solid or suspicious masses. No hydronephrosis. No calcifications. PERITONEAL AND RIGHT PLEURAL SPACE: No ascites or effusions. OTHER: No other significant findings. IMPRESSION: NORMAL RIGHT UPPER QUADRANT ULTRASOUND. TECHNICAL DOCUMENTATION: JOB ID: [id number]- All Rights Reserved Reading location - IP/workstation name: [email or web address]
[2019-03-01] MEDS ORDERED: CEFTRIAXONE 1 GM/D5W RTU 1 GM/50 ML RTUPB IV ONE (16:30)
[2019-03-01] MEDS ORDERED: METOCLOPRAMIDE HCL INJ/PF 10 MG/2 ML SDV IV ONE (16:44)
[2019-03-01] MEDS ORDERED: ONDANSETRON ODT 4 MG TAB (6 TAB/ER DISP) PO PRN (17:34)
[2019-03-01 17:50] VITALS: BP 92/64
[2019-03-01] MEDS ORDERED: NORMAL SALINE 1000 ML 1,000 ML IV PRN (18:11)
== END 2019-03-01 18:47 | disposition home or self-care (01) ==
LOC: ER 14:18
DX: N12 Tubulo-interstitial nephritis, not specified as acute or chronic (principal); R10.9 Unspecified abdominal pain; R35.0 Frequency of micturition; R11.0 Nausea; D72.829 Elevated white blood cell count, unspecified; Z88.6 Allergy status to analgesic agent; Z88.5 Allergy status to narcotic agent
CPT/HCPCS: 99284; 96361; 96374; 96375; 36415; 87086; 83690; 84703; 85025; 87088; 80053; 81001; 87186; 76705; J1885; J2765; J2405; J7030; J0696

== ENCOUNTER 2019-05-06 17:07 | Emergency (ER) | payer SELFPAY | END 2019-05-06 22:00 | disposition left against medical advice (07) | LOC: ER 17:07 | DX: Z53.21 Procedure and treatment not carried out due to patient leaving prior to being seen by health care provider (principal) ==

== ENCOUNTER 2019-05-22 15:05 | Emergency (ER) | payer SELFPAY ==
--- NOTE | 2019-05-22 15:51 | ER Document Report ---
ED Medical Screen (RME) - General Chief Complaint: Chest Pain Stated Complaint: CHEST PAIN Time Seen by Provider: 05/22/19 15:50 Notes: 28-year-old female presents with chest pain that started this morning. Patient states that it is central. Associated dyspnea and lightheadedness. Regular rate and rhythm. Lungs CTA bilaterally. I have greeted and performed a rapid initial assessment of this patient. A comprehensive ED assessment and evaluation of the patient, analysis of test results and completion of the medical decision making process with be conducted by additional ED providers. TRAVEL OUTSIDE OF THE [place] IN LAST 30 DAYS: No - Related Data Allergies/Adverse Reactions: fentanyl Allergy (Verified 03/01/19 14:55) Past Medical History - Social History Family history: Reviewed & Not Pertinent Renal/ Medical History: Reports: Hx Ectopic . Denies: Hx Peritoneal Dialysis Past Surgical History: Reports: Hx Appendectomy, Hx Gynecologic Surgery - Removal of ectopic , Hx Tubal Ligation - Immunizations Immunizations up to date: Yes Hx Diphtheria, Pertussis, Tetanus Vaccination: Yes
--- NOTE | 2019-05-22 16:13 | RADIOLOGY REPORT (SQ) ---
EXAM DESCRIPTION: CHEST 2 VIEWS COMPLETED DATE/TIME: 05/22/2019 4:04 pm REASON FOR STUDY: chest pain COMPARISON: 02/15/2019 EXAM PARAMETERS: NUMBER OF VIEWS: two views TECHNIQUE: Digital Frontal and Lateral radiographic views of the chest acquired. RADIATION DOSE: NA LIMITATIONS: none FINDINGS: LUNGS AND PLEURA: No opacities, masses or pneumothorax. No pleural effusion. MEDIASTINUM AND HILAR STRUCTURES: No masses or contour abnormalities. HEART AND VASCULAR STRUCTURES: Heart normal size. No evidence for failure. BONES: No acute findings. HARDWARE: None in the chest. OTHER: No other significant finding. IMPRESSION: NO ACUTE RADIOGRAPHIC FINDING IN THE CHEST. TECHNICAL DOCUMENTATION: JOB ID: [id number] [employer]- All Rights Reserved Reading location - IP/workstation name: [email or web address]
[2019-05-22 17:52] LABS: ABSOLUTE EOSINOPHILS # (AUTO) 0.1 10^3/uL (0.0-0.6); ABSOLUTE LYMPHOCYTES (AUTO) 1.1 10^3/uL (0.5-4.7); ABSOLUTE MONOCYTES (AUTO) 0.6 10^3/uL (0.1-1.4); ABSOLUTE NEUT (AUTO) 5.5 10^3/uL (1.7-8.2); BASOPHILS % (AUTO) 0.3 % (0-2); EOSINOPHILS % (AUTO) 0.9 % (0-6); HEMATOCRIT 40.1 % (36.0-47.0); HEMOGLOBIN 13.8 g/dL (12.0-15.5); LYMPHOCYTES % (AUTO) 14.5 % (13-45); MEAN CORPUSCULAR HEMOGLOBIN 29.6 pg (27.0-33.4); MEAN CORPUSCULAR HGB CONC 34.4 g/dL (32.0-36.0); MEAN CORPUSCULAR VOLUME 86 fl (80-97); MONOCYTES % (AUTO) 8.7 % (3-13); PLATELET COUNT 226 10^3/uL (150-450); RED BLOOD COUNT 4.66 10^6/uL (3.72-5.28); RED CELL DISTRIBUTION WIDTH 13.4 % (11.5-14.0); SEGMENTED NEUTROPHILS % (AUTO) 75.6 % (42-78); TOTAL CELLS COUNTED % (AUTO) 100 %; WHITE BLOOD COUNT 7.3 10^3/uL (4.0-10.5)
[2019-05-22 18:09] LABS: A TYPE INFLUENZA AG NEGATIVE (NEGATIVE); B INFLUENZA AG NEGATIVE (NEGATIVE)
[2019-05-22 18:09] LABS: ALKALINE PHOSPHATASE 78 U/L (38-126); ANION GAP 7 (5-19); ASPARTATE AMINO TRANSFERASE 22 U/L (14-36); BILIRUBIN,DIRECT 0.2 mg/dL (0.0-0.4); BILIRUBIN,TOTAL 0.4 mg/dL (0.2-1.3); BLOOD UREA NITROGEN 12 mg/dL (7-20); CALCIUM 9.3 mg/dL (8.4-10.2); CARBON DIOXIDE 29 mmol/L (22-30); CHLORIDE 102 mmol/L (98-107); GLUCOSE 89 mg/dL (75-110); POTASSIUM 4.1 mmol/L (3.6-5.0); TOTAL PROTEIN 6.9 g/dL (6.3-8.2)
[2019-05-22] MEDS ORDERED: CETIRIZINE 10 MG TABLET PO ONE (19:05)
[2019-05-22] MEDS ORDERED: IBUPROFEN 600 MG TABLET PO ONE (19:05)
[2019-05-22] MEDS ORDERED: ALBUTEROL SULFATE HFA (90 MCG/PUFF) 8 GM MDI (1 MDI/ER DISP) IH PRN (19:05)
[2019-05-22] MEDS ORDERED: ACETAMINOPHEN 325 MG TABLET PO ONE (19:05)
--- NOTE | 2019-05-22 19:09 | ER Document Report ---
ED Cardiac - General Chief Complaint: Chest Pain Stated Complaint: CHEST PAIN Time Seen by Provider: 05/22/19 15:50 Primary Care Provider: [facility] [Provider Group] - Follow up as needed [facility] [Provider Group] - Follow up as needed Notes: Patient is a 28-year-old female who presents emergency department with the chief complaint of chest pain. Patient states that her pain started this morning. Patient also has associated shortness of breath. States that whenever she coughs, the pain is worse. 3 days ago she started to have body aches, and generalized malaise. She has not taken any medications to help with her symptoms. Patient reports a mild headache. She also has some rhinorrhea that started today. TRAVEL OUTSIDE OF THE [place] IN LAST 30 DAYS: No - Related Data Allergies/Adverse Reactions: fentanyl Allergy (Verified 05/22/19 15:52) Past Medical History - General Information source: Patient - Social History Smoking Status: Unknown if Ever Smoked Chew tobacco use (# tins/day): No Frequency of alcohol use: None Drug Abuse: None Family History: Reviewed & Not Pertinent Patient has suicidal ideation: No Patient has homicidal ideation: No Renal/ Medical History: Reports: Hx Ectopic . Denies: Hx Peritoneal Dialysis Past Surgical History: Reports: Hx Appendectomy, Hx Gynecologic Surgery - Removal of ectopic , Hx Tubal Ligation - Immunizations Immunizations up to date: Yes Hx Diphtheria, Pertussis, Tetanus Vaccination: Yes Review of Systems - Review of Systems Notes: REVIEW OF SYSTEMS: CONSTITUTIONAL : See HPI. EENT: See HPI. CARDIOVASCULAR: See HPI. RESPIRATORY: See HPI. GASTROINTESTINAL: Denies nausea, vomiting, and diarrhea. Denies abdominal pain. Denies constipation. GENITOURINARY: Denies difficulty urinating, burning, blood in urine, urgency or frequency. MUSCULOSKELETAL: Denies neck and back pain. Denies joint pain or swelling. SKIN: Denies rash, itchiness, or lesions HEMATOLOGIC : Denies easy bruising or bleeding. LYMPHATIC: Denies swollen, painful, enlarged glands. NEUROLOGICAL: Denies no numbness or tingling denies weakness. Denies headache. Denies altered mental status. Denies alteration in speech. PSYCHIATRIC: Denies stress, anxiety, alteration in sleep patterns, or depression. All other systems reviewed and negative. Physical Exam - Vital signs Vitals: Temp Pulse Resp BP Pulse Ox 98.1 F 90 18 145/81 H 99 05/22/19 17:36 05/22/19 17:36 05/22/19 17:36 05/22/19 17:36 05/22/19 17:36 - Notes Notes: PHYSICAL EXAMINATION: GENERAL: Appears well, healthy, well-nourished, no acute distress. HEAD: Normocephalic, atraumatic. EYES: PERRL, conjunctiva normal, all extraocular movements intact, sclera nonicteric ENT: Moist mucous membranes. Rhinorrhea noted. Tympanic membranes clear. NECK: Supple, no noticeable swelling, redness, rash. Normal range of motion. LUNGS: Equal breath sounds bilaterally and clear to auscultation. No wheezes rales or rhonchi. CARDIOVASCULAR: S1-S2, regular rate, regular rhythm. Radial pulses 2+, normal. ABDOMEN: Normoactive bowel sounds. Soft, nontender, no guarding, no rebound tenderness, and no masses palpated. EXTREMITIES: Normal strength and range of motion, no pitting or edema. No cyanosis. NEUROLOGICAL: Moves all extremities upon command. Strength 5/5 in all extremities. PSYCH: Normal mood, normal affect. SKIN: Warm, dry. No rash, lesions, ulcerations noted. Normal skin turgor. Course - Re-evaluation Re-evalutation: 05/22/19 Chest x-ray, labs, and vital signs are all normal. Influenza tests are negative patient will be sent home with an albuterol inhaler. I suspect that she has an upper respiratory viral infection. Advised patient to start on cetirizine and Flonase to help with her symptoms. I have very low suspicion for a pulmonary emboli, as the patient is not tachycardic. Patient will follow-up with her primary care doctor. Follow-up precautions were given. Verbal discharge instructions were given to the patient. They verbalized understanding. They are stable for discharge. - Vital Signs Vital signs: Temp Pulse Resp BP Pulse Ox 99.3 F 88 16 107/70 99 05/22/19 19:53 05/22/19 19:53 05/22/19 19:53 05/22/19 19:53 05/22/19 19:53 - Laboratory Result Diagrams: 05/22/19 17:31 05/22/19 17:31 Discharge - Discharge Clinical Impression: Upper respiratory infection, viral Chest pain Qualifiers: Chest pain type: other chest pain Qualified Code(s): R07.89 - Other chest pain Condition: Stable Disposition: HOME, SELF-CARE Additional Instructions: You were seen today in the emergency department for a cough, chest pain, and shortness of breath. Your labs and chest x-ray are normal. This is very reassuring. Your symptoms are most consistent with an upper respiratory viral infection. Please take acetaminophen 1000 mg and ibuprofen 600 mg every 6 hours as needed for any body aches or fever. You have been given cetirizine, medication to help with your runny nose. Take 1 tablet every day while you have symptoms. You have also been given Flonase, medication to help with the inflammation in your nose. Place 1 spray to each nostril twice a day. If you develop a fever greater than 100.4 F while on ibuprofen and acetaminophen, develop shortness of breath, difficulty breathing, or any symptoms that are worrisome to you, please return to the emergency department. You are also being sent home with an albuterol inhaler with a spacer. You can take 1 to 2 puffs every 4-6 hours as needed. Prescriptions: Benzonatate [Tessalon Perles 100 mg Capsule] 100 mg PO Q8HP PRN #40 capsule PRN Reason: Cetirizine HCl [All Day Allergy] 10 mg PO DAILY #30 tablet Fluticasone Propionate [Flonase Nasal [place] 50 Mcg/[place] 16 gm] 2 sprays NASL DAILY #1 inhaler Referrals: [facility] [Provider Group] - Follow up as needed [facility] [Provider Group] - Follow up as needed
[2019-05-22 19:53] VITALS: BP 107/70
== END 2019-05-22 20:22 | disposition home or self-care (01) ==
LOC: ER 15:05
DX: R07.9 Chest pain, unspecified (principal); J06.9 Acute upper respiratory infection, unspecified; B97.89 Other viral agents as the cause of diseases classified elsewhere; R06.02 Shortness of breath; R51 Headache; J34.89 Other specified disorders of nose and nasal sinuses; Z88.6 Allergy status to analgesic agent; Z88.5 Allergy status to narcotic agent
CPT/HCPCS: 99285; 36415; 85025; 80053; 84484; 87804; 71046; J3490

== ENCOUNTER 2019-05-23 17:15 | Emergency (ER) | payer SELFPAY ==
[2019-05-23] MEDS ORDERED: ONDANSETRON 4 MG TAB.RAPDIS PO ONE (17:54)
--- NOTE | 2019-05-23 17:56 | ER Document Report ---
ED Medical Screen (RME) - General Chief Complaint: Fever Stated Complaint: FEVER,BODY ACHES Time Seen by Provider: 05/23/19 17:49 TRAVEL OUTSIDE OF THE [place] IN LAST 30 DAYS: No - HPI Notes: 05/23/19 17:55 Patient is a 28-year-old female who presents complaining of fever, nasal ingestion/discharge, dry cough, nausea and vomiting. Patient states that most of her URI symptoms have been ongoing for the past couple days, but the nausea and vomiting began today. She has not been able to keep any foods or liquids down. She is urinating normally and having normal bowel movements otherwise. Last dose of antipyretic was this morning. Patient was evaluated yesterday and had an unremarkable work-up otherwise. Patient states symptoms worsened today. We will give patient some fluids I suspect that she may have some mild dehydration associated with this illness. Patient is aware that our influenza test is only 50% sensitive even though she tested negative yesterday. I have treated and performed a rapid initial assessment of this patient. A comprehensive ED assessment and evaluation of the patient, analysis of test results and completion of medical decision making process will be conducted by additional ED providers. PHYSICAL EXAMINATION: GENERAL: Well-appearing, well-nourished and in no acute distress. A&Ox4. Answers questions appropriately. - Related Data Allergies/Adverse Reactions: fentanyl Allergy (Verified 05/23/19 17:49) Past Medical History - Social History Chew tobacco use (# tins/day): No Frequency of alcohol use: None Drug Abuse: None Family history: Reviewed & Not Pertinent Renal/ Medical History: Reports: Hx Ectopic . Denies: Hx Peritoneal Dialysis Past Surgical History: Reports: Hx Appendectomy, Hx Gynecologic Surgery - Removal of ectopic , Hx Tubal Ligation - Immunizations Immunizations up to date: Yes Hx Diphtheria, Pertussis, Tetanus Vaccination: Yes Physical Exam - Vital signs Vitals: Temp Pulse Resp BP Pulse Ox 101.7 F H 114 H 22 H 127/89 H 100 05/23/19 17:35 05/23/19 17:35 05/23/19 17:35 05/23/19 17:35 05/23/19 17:35 Course - Vital Signs Vital signs: Temp Pulse Resp BP Pulse Ox 101.7 F H 114 H 22 H 127/89 H 100 05/23/19 17:35 05/23/19 17:35 05/23/19 17:35 05/23/19 17:35 05/23/19 17:35
--- NOTE | 2019-05-23 18:29 | RADIOLOGY REPORT (SQ) ---
EXAM DESCRIPTION: CHEST 2 VIEWS COMPLETED DATE/TIME: 05/23/2019 6:05 pm REASON FOR STUDY: cough COMPARISON: 05/22/2019 EXAM PARAMETERS: NUMBER OF VIEWS: two views TECHNIQUE: Digital Frontal and Lateral radiographic views of the chest acquired. RADIATION DOSE: NA LIMITATIONS: none FINDINGS: LUNGS AND PLEURA: No opacities, masses or pneumothorax. No pleural effusion. MEDIASTINUM AND HILAR STRUCTURES: No masses or contour abnormalities. HEART AND VASCULAR STRUCTURES: Heart normal size. No evidence for failure. BONES: No acute findings. HARDWARE: None in the chest. OTHER: No other significant finding. IMPRESSION: NO ACUTE RADIOGRAPHIC FINDING IN THE CHEST. TECHNICAL DOCUMENTATION: JOB ID: [id number] 2011 [employer]- All Rights Reserved Reading location - IP/workstation name: [email or web address]
[2019-05-23] MEDS ORDERED: ACETAMINOPHEN 325 MG TABLET PO ONE (18:48)
--- NOTE | 2019-05-23 18:56 | ER Document Report ---
ED Fever - General Chief Complaint: Fever Stated Complaint: FEVER,BODY ACHES Time Seen by Provider: 05/23/19 18:49 Primary Care Provider: RIG[facility] [Provider Group] - Follow up as needed [facility] [Provider Group] - Follow up as needed Mode of Arrival: Ambulatory Information source: Patient Notes: Patient presents complaining of cough congestion that started yesterday. Patient with fever today. Patient reports nausea. Patient denies any vomiting or diarrhea. Patient does complain of sore throat. Patient complains of lower back tenderness. Patient denies any urinary symptoms. Patient was here yesterday with similar symptoms but developed fever today which prompted her visit. TRAVEL OUTSIDE OF THE [place] IN LAST 30 DAYS: No - HPI Onset: Yesterday Onset/Duration: Worse Quality of pain: Achy Pain Level: 3 Context: Congestion, Cough, Nausea/vomiting - Nausea. denies: Diarrhea Associated symptoms: Body/muscle aches, Nonproductive cough, Fever, Nausea, Sore throat. denies: Chest pain, Vomiting, Shortness of breath Similar symptoms previously: Yes Recently seen / treated by doctor: Yes - Related Data Allergies/Adverse Reactions: fentanyl Allergy (Verified 05/23/19 17:49) Past Medical History - General Information source: Patient - Social History Smoking Status: Never Smoker Chew tobacco use (# tins/day): No Frequency of alcohol use: None Drug Abuse: None Occupation: None Lives with: Spouse/Significant other Family History: Reviewed & Not Pertinent Patient has suicidal ideation: No Patient has homicidal ideation: No - Medical History Medical History: Negative Renal/ Medical History: Reports: Hx Ectopic . Denies: Hx Peritoneal Dialysis Past Surgical History: Reports: Hx Appendectomy, Hx Gynecologic Surgery - Removal of ectopic , Hx Tubal Ligation - Immunizations Immunizations up to date: Yes Hx Diphtheria, Pertussis, Tetanus Vaccination: Yes Review of Systems - Review of Systems Constitutional: Chills, Fever EENT: Nose congestion, Throat pain Cardiovascular: No symptoms reported. denies: Chest pain Respiratory: Cough. denies: Short of breath Gastrointestinal: Nausea. denies: Abdominal pain, Diarrhea, Vomiting Genitourinary: No symptoms reported. denies: Dysuria Female Genitourinary: No symptoms reported Musculoskeletal: Back pain, Muscle pain. denies: Neck pain Skin: No symptoms reported. denies: Rash Hematologic/Lymphatic: No symptoms reported Neurological/Psychological: No symptoms reported Physical Exam - Vital signs Vitals: Temp Pulse Resp BP Pulse Ox 101.7 F H 114 H 22 H 127/89 H 100 05/23/19 17:35 05/23/19 17:35 05/23/19 17:35 05/23/19 17:35 05/23/19 17:35 - General General appearance: Alert In distress: Mild - HEENT Head: Normocephalic, Atraumatic Eyes: Normal Conjunctiva: Normal Nasal: Clear rhinorrhea Mouth/Lips: Normal Pharynx: Erythema Neck: Normal, Supple. No: Lymphadenopathy - Respiratory Respiratory status: No respiratory distress Chest status: Pain with cough Breath sounds: Nonproductive cough Chest palpation: Normal - Cardiovascular Rhythm: Tachycardia Heart sounds: S1 appreciated, S2 appreciated Murmur: No - Abdominal Inspection: Normal Distension: No distension Bowel sounds: Normal Tenderness: Nontender Organomegaly: No organomegaly - Back Back: Tender - Lower lumbar paraspinal tenderness, CVA tenderness. No: Vertebra tenderness - Extremities General upper extremity: Normal inspection, Normal ROM General lower extremity: Normal inspection, Normal ROM - Neurological Neuro grossly intact: Yes Cognition: Normal [place] Coma Scale Eye Opening: Spontaneous [place] Coma Scale Verbal: Oriented [place] Coma Scale Motor: Obeys Commands [place] Coma Scale Total: 15 - Psychological Associated symptoms: Normal affect, Normal mood - Skin Skin Temperature: Warm Skin Moisture: Dry Skin Color: Normal Course - Re-evaluation Re-evalutation: 05/23/19 19:42 Patient resting comfortably, no respiratory distress. Patient with positive influenza A testing. Discussed efficacy and side effect profile of Tamiflu. Patient declines prescription at this time. Good return precautions discussed with patient. Patient encouraged to stay well-hydrated. Discussed worsening signs or symptoms that patient should return immediately for. Patient verbalized understanding and is agreeable with discharge plan of care. - Vital Signs Vital signs: Temp Pulse Resp BP Pulse Ox 99 F 98 16 104/56 L 100 05/23/19 21:00 05/23/19 21:00 05/23/19 21:00 05/23/19 21:00 05/23/19 21:00 - Laboratory Result Diagrams: 05/23/19 18:43 05/23/19 18:43 Laboratory results interpreted by me: 05/23/19 05/23/19 18:43 18:43 MCHC 36.1 H Lymph % (Auto) 8.9 L Absolute Lymphs (auto) 0.4 L Seg Neutrophils % 79.9 H Glucose 117 H Labs- Entire Visit 05/23/19 05/23/19 05/23/19 18:15 18:15 18:43 WBC 5.0 RBC 4.43 Hgb 13.6 Hct 37.7 MCV 85 MCH 30.7 MCHC 36.1 H RDW 13.3 Plt Count 188 Lymph % (Auto) 8.9 L [place] % (Auto) 10.4 Eos % (Auto) 0.5 Baso % (Auto) 0.3 Absolute Neuts (auto) 4.0 Absolute Lymphs (auto) 0.4 L Absolute Monos (auto) 0.5 Absolute Eos (auto) 0.0 Absolute Basos (auto) 0.0 Seg Neutrophils % 79.9 H Sodium Potassium Chloride Carbon Dioxide Anion Gap BUN Creatinine Est GFR ( Amer) Est GFR (MDRD) Non-Af Glucose Lactic Acid Calcium Total Bilirubin Direct Bilirubin Neonat Total Bilirubin Neonat Direct Bilirubin Neonat Indirect Bili AST ALT Alkaline Phosphatase Total Protein Albumin Lipase Urine Color YELLOW Urine Appearance SLIGHTLY-CLOUDY Urine pH 7.0 Ur Specific [place] 1.016 Urine Protein NEGATIVE Urine Glucose (UA) NEGATIVE Urine Ketones NEGATIVE Urine Blood NEGATIVE Urine Nitrite (Reflex) NEGATIVE Urine Bilirubin NEGATIVE Urine Urobilinogen NEGATIVE Leukocyte Esterase Rfl NEGATIVE Squamous Epi Cells Auto 18 Urine Mucus (Auto) RARE Urine Ascorbic Acid NEGATIVE Influenza A (Rapid) POSITIVE Influenza B (Rapid) NEGATIVE Group A Strep Rapid 05/23/19 05/23/19 05/23/19 18:43 18:43 19:02 WBC RBC Hgb Hct MCV MCH MCHC RDW Plt Count Lymph % (Auto) [place] % (Auto) Eos % (Auto) Baso % (Auto) Absolute Neuts (auto) Absolute Lymphs (auto) Absolute Monos (auto) Absolute Eos (auto) Absolute Basos (auto) Seg Neutrophils % Sodium 138.5 Potassium 3.7 Chloride 102 Carbon Dioxide 28 Anion Gap 9 BUN 8 Creatinine 0.90 Est GFR ( Amer) > 60 Est GFR (MDRD) Non-Af > 60 Glucose 117 H Lactic Acid 1.7 Calcium 9.2 Total Bilirubin 0.3 Direct Bilirubin 0.2 Neonat Total Bilirubin Not Reportable Neonat Direct Bilirubin Not Reportable Neonat Indirect Bili Not Reportable AST 22 ALT 14 Alkaline Phosphatase 76 Total Protein 7.0 Albumin 4.0 Lipase 80.9 Urine Color Urine Appearance Urine pH Ur Specific [place] Urine Protein Urine Glucose (UA) Urine Ketones Urine Blood Urine Nitrite (Reflex) Urine Bilirubin Urine Urobilinogen Leukocyte Esterase Rfl Squamous Epi Cells Auto Urine Mucus (Auto) Urine Ascorbic Acid Influenza A (Rapid) Influenza B (Rapid) Group A Strep Rapid NEGATIVE - Diagnostic Test Radiology reviewed: Reports reviewed Discharge - Discharge Clinical Impression: Influenza A, Nausea Fever Qualifiers: Fever type: unspecified Qualified Code(s): R50.9 - Fever, unspecified Condition: Stable Disposition: HOME, SELF-CARE Instructions: Acetaminophen, Fever ([facility]), Use of [id number] Ibuprofen ([facility]), Influenza ([facility]), Nausea or Vomiting, Nonspecific ([facility]) Additional Instructions: Return immediately for any new or worsening symptoms: Worsening cough, vomiting, difficulty breathing or any concerning new or worsening symptoms Followup with your primary care provider, call tomorrow to make a followup appointment Prescriptions: Ondansetron [Zofran Odt 4 mg Tablet] 1 tab PO Q6H #15 tab.rapdis Referrals: [facility] [Provider Group] - Follow up as needed [facility] [Provider Group] - Follow up as needed
[2019-05-23 18:58] LABS: ABSOLUTE LYMPHOCYTES (AUTO) 0.4 10^3/uL (0.5-4.7); ABSOLUTE MONOCYTES (AUTO) 0.5 10^3/uL (0.1-1.4); BASOPHILS % (AUTO) 0.3 % (0-2); EOSINOPHILS % (AUTO) 0.5 % (0-6); HEMATOCRIT 37.7 % (36.0-47.0); HEMOGLOBIN 13.6 g/dL (12.0-15.5); LYMPHOCYTES % (AUTO) 8.9 % (13-45); MEAN CORPUSCULAR HEMOGLOBIN 30.7 pg (27.0-33.4); MEAN CORPUSCULAR HGB CONC 36.1 g/dL (32.0-36.0); MEAN CORPUSCULAR VOLUME 85 fl (80-97); MONOCYTES % (AUTO) 10.4 % (3-13); PLATELET COUNT 188 10^3/uL (150-450); RED BLOOD COUNT 4.43 10^6/uL (3.72-5.28); RED CELL DISTRIBUTION WIDTH 13.3 % (11.5-14.0); SEGMENTED NEUTROPHILS % (AUTO) 79.9 % (42-78); TOTAL CELLS COUNTED % (AUTO) 100 %
[2019-05-23 18:59] LABS: APPEARANCE,URINE SLIGHTLY-CLOUDY; BILIRUBIN,URINE NEGATIVE (NEGATIVE); COLOR,URINE YELLOW; GLUCOSE, URINE NEGATIVE (NEGATIVE); KETONES,URINE NEGATIVE (NEGATIVE); PROTEIN,URINE NEGATIVE (NEGATIVE); URINE SPECIFIC GRAVITY 1.016; UROBILINOGEN,URINE NEGATIVE mg/dL (<2.0)
[2019-05-23] MEDS: NORMAL SALINE 1000 ML 1,000 ML IV PRN ×2 (19:00→19:58)
[2019-05-23 19:01] LABS: A TYPE INFLUENZA AG POSITIVE (NEGATIVE); B INFLUENZA AG NEGATIVE (NEGATIVE)
[2019-05-23 19:18] LABS: ALKALINE PHOSPHATASE 76 U/L (38-126); ANION GAP 9 (5-19); ASPARTATE AMINO TRANSFERASE 22 U/L (14-36); BILIRUBIN,DIRECT 0.2 mg/dL (0.0-0.4); BILIRUBIN,TOTAL 0.3 mg/dL (0.2-1.3); BLOOD UREA NITROGEN 8 mg/dL (7-20); CALCIUM 9.2 mg/dL (8.4-10.2); CARBON DIOXIDE 28 mmol/L (22-30); CHLORIDE 102 mmol/L (98-107); GLUCOSE 117 mg/dL (75-110); POTASSIUM 3.7 mmol/L (3.6-5.0)
[2019-05-23] MEDS ORDERED: IBUPROFEN 800 MG TABLET PO ONE (19:41)
[2019-05-23 21:21] VITALS: BP 104/56
== END 2019-05-23 21:00 | disposition home or self-care (01) ==
LOC: ER 17:15
DX: J10.1 Influenza due to other identified influenza virus with other respiratory manifestations (principal); R50.9 Fever, unspecified; R11.0 Nausea; R05 Cough; R09.81 Nasal congestion; M79.10 Myalgia, unspecified site; M54.9 Dorsalgia, unspecified; Z88.6 Allergy status to analgesic agent; J34.89 Other specified disorders of nose and nasal sinuses; Z88.5 Allergy status to narcotic agent
CPT/HCPCS: 36415; 87070; 87880; 83605; 83690; 85025; 80053; 81001; 87804; 71046; S0119; J7030

== ENCOUNTER 2019-06-20 23:14 | Emergency (ER) | payer SELFPAY ==
[2019-06-20] MEDS ORDERED: ONDANSETRON HCL INJ/PF 4 MG/2 ML SDV IV ONE (23:32)
[2019-06-21 00:04] LABS: VENOUS BLOOD BASE EXCESS -0.8 mmol/L; VENOUS BLOOD HCO3 23.7 mmol/L (20-32); VENOUS BLOOD PCO2 38.6 mmHg (35-63); VENOUS BLOOD PH 7.41 (7.30-7.42)
[2019-06-21] MEDS ORDERED: NORMAL SALINE 1000 ML 1,000 ML IV ONE (00:04)
[2019-06-21 00:07] LABS: INTERNATIONAL RATION (INR) 1.04; PROTHROMBIN TIME 13.6 SEC (11.4-15.4)
[2019-06-21 00:12] LABS: ABSOLUTE LYMPHOCYTES (AUTO) 1.4 10^3/uL (0.5-4.7); ABSOLUTE MONOCYTES (AUTO) 1.1 10^3/uL (0.1-1.4); ABSOLUTE NEUT (AUTO) 7.9 10^3/uL (1.7-8.2); BASOPHILS % (AUTO) 0.2 % (0-2); HEMATOCRIT 35.7 % (36.0-47.0); HEMOGLOBIN 12.5 g/dL (12.0-15.5); LYMPHOCYTES % (AUTO) 13.1 % (13-45); MEAN CORPUSCULAR HEMOGLOBIN 29.8 pg (27.0-33.4); MEAN CORPUSCULAR HGB CONC 35.1 g/dL (32.0-36.0); MEAN CORPUSCULAR VOLUME 85 fl (80-97); MONOCYTES % (AUTO) 10.6 % (3-13); PLATELET COUNT 179 10^3/uL (150-450); RED BLOOD COUNT 4.21 10^6/uL (3.72-5.28); RED CELL DISTRIBUTION WIDTH 12.4 % (11.5-14.0); SEGMENTED NEUTROPHILS % (AUTO) 76.1 % (42-78); TOTAL CELLS COUNTED % (AUTO) 100 %; WHITE BLOOD COUNT 10.4 10^3/uL (4.0-10.5)
[2019-06-21 00:16] LABS: ALBUMIN 3.9 g/dL (3.5-5.0); ALKALINE PHOSPHATASE 101 U/L (38-126); ANION GAP 10 (5-19); ASPARTATE AMINO TRANSFERASE 20 U/L (14-36); BILIRUBIN,DIRECT 0.2 mg/dL (0.0-0.4); BILIRUBIN,TOTAL 0.6 mg/dL (0.2-1.3); BLOOD UREA NITROGEN 12 mg/dL (7-20); CARBON DIOXIDE 24 mmol/L (22-30); CHLORIDE 100 mmol/L (98-107); GLUCOSE 102 mg/dL (75-110); POTASSIUM 3.7 mmol/L (3.6-5.0); TOTAL PROTEIN 6.9 g/dL (6.3-8.2)
[2019-06-21 00:29] LABS: A TYPE INFLUENZA AG NEGATIVE (NEGATIVE); B INFLUENZA AG NEGATIVE (NEGATIVE)
[2019-06-21 00:38] LABS: APPEARANCE,URINE SLIGHTLY-CLOUDY; BILIRUBIN,URINE NEGATIVE (NEGATIVE); COLOR,URINE YELLOW; GLUCOSE, URINE NEGATIVE (NEGATIVE); KETONES,URINE TRACE mg/dL (NEGATIVE); PROTEIN,URINE NEGATIVE (NEGATIVE); URINE SPECIFIC GRAVITY 1.012; UROBILINOGEN,URINE NEGATIVE mg/dL (<2.0)
[2019-06-21] MEDS ORDERED: AMOXICILLIN TRYHYD 250 MG/5 ML SUSP 80 ML (ER DISP) PO ONE (01:16)
--- NOTE | 2019-06-21 01:22 | ER Document Report ---
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 Patient denies any vaginal discharge denies any skin rash denies any productive cough or dysuria but admits to cephalgia. TRAVEL OUTSIDE OF THE [place] IN LAST 30 DAYS: No - HPI Onset: This morning - Related Data Allergies/Adverse Reactions: fentanyl Allergy (Verified 05/23/19 17:49) Past Medical History - General Information source: Patient - Social History Smoking Status: Never Smoker Cigarette use (# per day): No Chew tobacco use (# tins/day): No Smoking Education Provided: No Frequency of alcohol use: None Drug Abuse: None Family History: Reviewed & Not Pertinent Patient has suicidal ideation: No Patient has homicidal ideation: No Renal/ Medical History: Reports: Hx Ectopic . Denies: Hx Peritoneal Dialysis Past Surgical History: Reports: Hx Appendectomy, Hx Gynecologic Surgery - Removal of ectopic , Hx Tubal Ligation - Immunizations Immunizations up to date: Yes Hx Diphtheria, Pertussis, Tetanus Vaccination: Yes Review of Systems - Review of Systems Constitutional: See HPI, Fever, Malaise, Weakness EENT: See HPI, Nose congestion, Throat pain Cardiovascular: No symptoms reported Respiratory: No symptoms reported Gastrointestinal: No symptoms reported Genitourinary: See HPI Female Genitourinary: No symptoms reported Musculoskeletal: No symptoms reported Skin: No symptoms reported Hematologic/Lymphatic: No symptoms reported Neurological/Psychological: No symptoms reported Physical Exam - Vital signs Vitals: Temp Pulse Resp BP Pulse Ox 100 F 89 21 H 110/72 97 06/20/19 23:14 06/20/19 23:14 06/20/19 23:14 06/20/19 23:14 06/20/19 23:14 Interpretation: Hypotensive - General General appearance: Alert - HEENT Head: Normocephalic Eyes: Normal Conjunctiva: Normal Cornea: Normal Extraocular movements intact: Yes Eyelashes: Normal Pupils: PERRL Sinus: Normal Nasal: Normal Mouth/Lips: Normal Mucous membranes: Normal Pharynx: Erythema Neck: Normal - Respiratory Respiratory status: No respiratory distress Chest status: Nontender Breath sounds: Normal Chest palpation: Normal - Cardiovascular Rhythm: Regular Heart sounds: Normal auscultation Murmur: No Friction rub: No Dewey's crunch: No - Abdominal Inspection: Normal Distension: No distension Bowel sounds: Normal Tenderness: Nontender Organomegaly: No organomegaly - Back Back: Normal - Extremities General upper extremity: Normal inspection General lower extremity: Normal inspection - Neurological Neuro grossly intact: Yes Cognition: Normal Orientation: AAOx4 [place] Coma Scale Eye Opening: Spontaneous [place] Coma Scale Verbal: Oriented [place] Coma Scale Motor: Obeys Commands [place] Coma Scale Total: 15 Speech: Normal Cranial nerves: Normal - Is Cerebellar coordination: Normal Motor strength normal: LUE, RUE, LLE, RLE - Psychological Associated symptoms: Normal affect - Skin Skin Temperature: Warm Skin Moisture: Dry - [place] Course - Vital Signs Vital signs: Temp Pulse Resp BP Pulse Ox 100.3 F 89 14 98/56 L 99 06/21/19 04:37 06/20/19 23:14 06/21/19 00:31 06/21/19 00:31 06/21/19 00:31 - Laboratory Result Diagrams: 06/20/19 23:47 06/20/19 23:47 Laboratory results interpreted by me: 06/20/19 06/20/19 06/20/19 23:35 23:47 23:47 Hct 35.7 L Sodium 133.7 L Lactic Acid Urine Ketones TRACE H Urine Blood SMALL H Leukocyte Esterase Rfl TRACE H 06/21/19 03:08 Hct Sodium Lactic Acid < 0.5 L Urine Ketones Urine Blood Leukocyte Esterase Rfl - Diagnostic Test Radiology reviewed: Reports reviewed Critical Care Note - Critical Care Note Total time excluding time spent on procedures (mins): 90 Discharge - Discharge Clinical Impression: Fever Qualifiers: Fever type: unspecified Qualified Code(s): R50.9 - Fever, unspecified UTI (urinary tract infection) Qualifiers: Urinary tract infection type: acute cystitis Hematuria presence: without hematuria Qualified Code(s): N30.00 - Acute cystitis without hematuria Condition: Good Disposition: HOME, SELF-CARE Instructions: Amoxicillin ([facility]) Additional Instructions: Follow-up with personal doctor this week return to ER as needed take medicines as directed encourage fluids try to quarantine self for least 5 days Prescriptions: Amoxicillin Trihydrate [Amoxil 250 mg/5 ml Susp] 500 mg PO TID 5 Days #150 ml Forms: Return to Work
--- NOTE | 2019-06-21 01:24 | RADIOLOGY REPORT (SQ) ---
EXAM DESCRIPTION: XR CHEST 1 VIEW COMPLETED DATE/TME: 06/20/2019 23:55 CLINICAL HISTORY: COUGH COMPARISON: 05/23/2019 FINDINGS: Single frontal view of the chest. Cardiomediastinal silhouette: Normal size and contour. Lungs: No consolidation, pneumothorax, or pleural effusion. Bones: No acute osseous abnormality. Upper abdomen: No abnormality identified. IMPRESSION: 1. No acute pulmonary process identified.
[2019-06-21 04:35] LABS: CHLAM PCR NOT DETECTED (NOT DETECT)
[2019-06-21] MEDS ORDERED: LORAZEPAM 1 MG TABLET PO ONE (05:16)
[2019-06-21] MEDS ORDERED: ONDANSETRON 4 MG TAB.RAPDIS PO ONE (06:01)
[2019-06-21] MEDS ORDERED: ACETAMINOPHEN 325 MG TABLET PO ONE (06:01)
[2019-06-21] MEDS ORDERED: PROMETHAZINE HCL 25 MG TABLET PO ONE (06:05)
[2019-06-21 06:21] VITALS: BP 112/62
--- NOTE | 2019-06-21 18:27 | EKG REPORT ---
SEVERITY:- ABNORMAL ECG - SINUS RHYTHM NONSPECIFIC T ABNORMALITIES, ANTERIOR LEADS : Confirmed by: Amy Mooney MD 21-Jun-2019 18:26:41
== END 2019-06-21 06:16 | disposition home or self-care (01) ==
LOC: ER 23:14
DX: N30.00 Acute cystitis without hematuria (principal); R50.9 Fever, unspecified; R05 Cough; J02.9 Acute pharyngitis, unspecified; M79.10 Myalgia, unspecified site; R51 Headache; Z79.899 Other long term (current) drug therapy
CPT/HCPCS: 93005; 99285; 96361; 96374; 36415; 87040; 87070; 87880; 83605; 84703; 85025; 85610; 80053; 81001; 87491; 87591; 82803; 87804; 71045; 93010; J2405; J7030

== ENCOUNTER 2019-07-11 10:21 | Emergency (ER) | payer SELFPAY ==
--- NOTE | 2019-07-11 10:36 | ER Document Report ---
ED General - General Chief Complaint: Urinary Problem Stated Complaint: PAINFUL URINATION/BLOOD IN URINE Time Seen by Provider: 07/11/19 10:36 Primary Care Provider: TYRONE GUZMÁN MD [ACTIVE STAFF] - Follow up as needed MARISSA PORTER MD [ACTIVE STAFF] - Follow up as needed TRAVEL OUTSIDE OF THE [place] IN LAST 30 DAYS: No - HPI Notes: 29-year-old female presents the emergency room for complaints of dysuria as well as vaginal bleeding over the last 2 days after being sexually active with the same partner. Patient states her last menstrual period was the end of May, states she has a tubal ligation so she is "never worried about being ". Patient states she not use any barrier methods for states sexual intercourse. Denies fevers, chills, chest pain,palpitations, shortness of breath, dyspnea, nausea, vomiting, diarrhea, abdominal pain, hematuria,blurred vision, double vision, loss of vision, speech changes, LH, dizziness, syncope, headaches, wheezing, ST, URI, neck pain, weakness, bowel or bladder dysfunction, saddle anesthesia, numbness or tingling in bilateral upper or lower extremities equally, muscle paralysis, weakness in bilateral upper or lower extremities equally or rash. - Related Data Allergies/Adverse Reactions: fentanyl Allergy (Verified 05/23/19 17:49) Past Medical History - General Information source: Patient - Social History Smoking Status: Unknown if Ever Smoked Family History: Reviewed & Not Pertinent Renal/ Medical History: Reports: Hx Ectopic . Denies: Hx Peritoneal Dialysis Past Surgical History: Reports: Hx Appendectomy, Hx Gynecologic Surgery - Removal of ectopic , Hx Tubal Ligation - Immunizations Immunizations up to date: Yes Hx Diphtheria, Pertussis, Tetanus Vaccination: Yes Review of Systems - Review of Systems Constitutional: No symptoms reported EENT: No symptoms reported Cardiovascular: No symptoms reported Respiratory: No symptoms reported Gastrointestinal: No symptoms reported Genitourinary: See HPI Female Genitourinary: See HPI Musculoskeletal: No symptoms reported Skin: No symptoms reported Hematologic/Lymphatic: No symptoms reported Neurological/Psychological: No symptoms reported Physical Exam - Vital signs Vitals: Temp Pulse Resp BP Pulse Ox 98.4 F 73 16 112/72 98 07/11/19 10:25 07/11/19 10:25 07/11/19 10:25 07/11/19 10:25 07/11/19 10:25 - Notes Notes: PHYSICAL EXAMINATION: reviewed vital signs by RN GENERAL: Well-appearing, well-nourished and in no acute distress. HEAD: Atraumatic, normocephalic. EYES: Pupils equal round and reactive to light, extraocular movements intact, conjunctiva are normal. ENT: Nares patent, oropharynx clear without exudates. Moist mucous membranes. NECK: Normal range of motion, supple without lymphadenopathy LUNGS: Breath sounds clear to auscultation bilaterally and equal. No wheezes rales or rhonchi. HEART: Regular rate and rhythm without murmurs ABDOMEN: Soft, nontender, nondistended abdomen. No guarding, no rebound. No masses appreciated. Female : External genitalia without erythema, exudate or discharge. Vaginal vault is without discharge. Cervix is of normal color without lesion. Uterus is noted to be of normal size and nontender. No cervical motion tenderness is seen. No masses are palpated. no blood in the vaginal vault without clots, os closed, no adnexal tenderness or mass Musculoskeletal: Normal range of motion, no pitting or edema. No cyanosis. NEUROLOGICAL: Cranial nerves grossly intact. Normal speech, normal gait. Normal sensory, motor exams PSYCH: Normal mood, normal affect. SKIN: Warm, Dry, normal turgor, no rashes or lesions noted. Course - Re-evaluation Re-evalutation: 07/11/19 18:24 Afebrile vital stable no distress. Nurses notes reviewed. CBC negative for jewel kocytosis or anemia, CMP negative for hepatic or renal dysfunction, no electrolyte disturbances. Wet mount does show the patient has bacterial vaginosis, no yeast and no trichomonas, GC was negative. Pelvic ultrasound unremarkable. Pelvic exam was unremarkable as well. Discussed with patient rosalinda t she needs to take Flagyl twice a day for 7 days, and avoid any alcohol as this can cause nausea and vomiting. 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 Advised having protected sexual intercourse on a regular basis and she does need to still go to the health department primary care for further STD testing. After performing a Medical Screening Examination, I estimate there is LOW risk for ACUTE APPENDICITIS, BOWEL OBSTRUCTION, ACUTE CHOLECYSTITIS, PERFORATED DIVERTICULITIS, INCARCERATED HERNIA, PANCREATITIS, PELVIC INFLAMMATORY DISEASE, PERFORATED ULCER, ECTOPIC , or TUBO- OVARIAN ABSCESS, thus I consider the discharge disposition reasonable. Also, there is no evidence or peritonitis, sepsis, or toxicity. I have reevaluated this patient multiple times and no significant life threatening changes are noted. The patient and I have discussed the diagnosis and risks, and we agree with discharging home with close follow-up with the understanding that symptoms and presentations can change. We also discussed returning to the Emergency Department immediately if new or worsening symptoms occur. We have discussed the symptoms which are most concerning (e.g., bloody stool, fever, changing or worsening pain, vomiting) that necessitate immediate return. - Vital Signs Vital signs: Temp Pulse Resp BP Pulse Ox 97.9 F 60 20 106/60 95 07/11/19 14:18 07/11/19 14:18 07/11/19 14:18 07/11/19 14:18 07/11/19 14:18 - Laboratory Result Diagrams: 07/11/19 11:04 07/11/19 11:04 Laboratory results interpreted by me: 07/11/19 10:50 Urine Protein 100 H Urine Blood LARGE H Ur Leukocyte Esterase TRACE H Discharge - Discharge Clinical Impression: Bacterial vaginosis, Vaginal bleeding Condition: Stable Disposition: HOME, SELF-CARE Instructions: Vaginosis, Bacterial ([facility]) Additional Instructions: Your chlamydia and gonorrhea results are pending, will call you with results. You do have bacterial vaginosis please take Flagyl twice a day for 7 days, do not drink alcohol while taking this medication can cause nausea and vomiting. Advised to please use barrier method or cessation sexual contact used to prevent STDs. You not tested for any blood born STDs today, so please follow-up with the health department for HIV hepatitis C and syphilis testing. Return immediately for any new or worsening symptoms. Follow up with primary care provider, call tomorrow to make followup appointment. Prescriptions: Metronidazole [Flagyl] 500 mg PO BID #14 tablet Forms: Return to Work Referrals: TYRONE GUZMÁN MD [ACTIVE STAFF] - Follow up as needed MARISSA PORTER MD [ACTIVE STAFF] - Follow up as needed
[2019-07-11 11:22] LABS: ABSOLUTE EOSINOPHILS # (AUTO) 0.1 10^3/uL (0.0-0.6); ABSOLUTE LYMPHOCYTES (AUTO) 1.8 10^3/uL (0.5-4.7); ABSOLUTE MONOCYTES (AUTO) 0.5 10^3/uL (0.1-1.4); ABSOLUTE NEUT (AUTO) 3.6 10^3/uL (1.7-8.2); BASOPHILS % (AUTO) 0.8 % (0-2); EOSINOPHILS % (AUTO) 1.7 % (0-6); HEMATOCRIT 37.9 % (36.0-47.0); HEMOGLOBIN 13.2 g/dL (12.0-15.5); LYMPHOCYTES % (AUTO) 29.3 % (13-45); MEAN CORPUSCULAR HEMOGLOBIN 29.8 pg (27.0-33.4); MEAN CORPUSCULAR HGB CONC 34.7 g/dL (32.0-36.0); MEAN CORPUSCULAR VOLUME 86 fl (80-97); MONOCYTES % (AUTO) 8.2 % (3-13); PLATELET COUNT 245 10^3/uL (150-450); RED BLOOD COUNT 4.42 10^6/uL (3.72-5.28); RED CELL DISTRIBUTION WIDTH 13.4 % (11.5-14.0); TOTAL CELLS COUNTED % (AUTO) 100 %
[2019-07-11 11:41] LABS: ALBUMIN 4.3 g/dL (3.5-5.0); ALKALINE PHOSPHATASE 84 U/L (38-126); ANION GAP 5 (5-19); ASPARTATE AMINO TRANSFERASE 19 U/L (14-36); BILIRUBIN,TOTAL 0.4 mg/dL (0.2-1.3); BLOOD UREA NITROGEN 13 mg/dL (7-20); CALCIUM 9.6 mg/dL (8.4-10.2); CARBON DIOXIDE 29 mmol/L (22-30); CHLORIDE 104 mmol/L (98-107); GLUCOSE 97 mg/dL (75-110); POTASSIUM 4.3 mmol/L (3.6-5.0); TOTAL PROTEIN 7.3 g/dL (6.3-8.2)
--- NOTE | 2019-07-11 12:25 | RADIOLOGY REPORT (SQ) ---
EXAM DESCRIPTION: U/S NON OB PEL W/DOPPLER IMAGES COMPLETED DATE/TIME: 07/11/2019 12:14 pm REASON FOR STUDY: vaginal bleeding COMPARISON: 01/17/2019. TECHNIQUE: Dynamic and static grayscale images acquired of the pelvis via transabdominal approach an d recorded on PACS. Additional selected color Doppler and spectral images recorded. LIMITATIONS: None. FINDINGS: UTERUS: Contour normal. No mass. ENDOMETRIAL STRIPE: No focal or generalized thickening. No masses. CERVIX: No nabothian cysts. RIGHT OVARY AND DOPPLER: Normal size. No worrisome masses. Normal arterial vascular flow without evid ence for torsion. LEFT OVARY AND DOPPLER: Normal size. No worrisome masses. Normal arterial vascular flow without evide nce for torsion. FREE FLUID: None noted. OTHER: No other significant finding. MEASUREMENTS: UTERUS: 4.5 x 6.2 x 10.5 cm. ENDOMETRIAL STRIPE: 10.5 mm. RIGHT OVARY: 2.2 x 2.4 x 3.0 cm. LEFT OVARY: 1.5 x 2.7 x 3.9 cm. IMPRESSION: NORMAL PELVIC ULTRASOUND BY TRANSABDOMINAL TECHNIQUE. TECHNICAL DOCUMENTATION: JOB ID: [id number] 2010 [employer]- All Rights Reserved Rev-08/18 Reading location - IP/workstation name: [email or web address]
[2019-07-11 13:17] LABS: BACTERIA (WET MOUNT) 4+ BACTERIA SEEN; EPITHELIALS (WET MOUNT) 4+ EPITHELIALS SEEN; RBCS (WET MOUNT) FEW RBCS SEEN; T.VAGINALIS (WET MOUNT) NO TRICHOMONAS SEEN; WBCS (WET MOUNT) 1+ WBCS SEEN; YEAST (WET MOUNT) NO YEAST SEEN
[2019-07-11 14:19] VITALS: BP 106/60
[2019-07-11 14:30] LABS: APPEARANCE,URINE CLOUDY; BILIRUBIN,URINE NEGATIVE (NEGATIVE); COLOR,URINE YELLOW; GLUCOSE, URINE NEGATIVE (NEGATIVE); KETONES,URINE NEGATIVE (NEGATIVE); LEUKOCYTE ESTERASE,URINE TRACE (NEGATIVE); NITRITE,URINE NEGATIVE (NEGATIVE); PROTEIN,URINE 100 mg/dL (NEGATIVE); URINE SPECIFIC GRAVITY 1.013; UROBILINOGEN,URINE NEGATIVE mg/dL (<2.0)
[2019-07-11 14:42] LABS: CHLAM PCR NOT DETECTED (NOT DETECT)
== END 2019-07-11 14:17 | disposition home or self-care (01) ==
LOC: ER 10:21
DX: N76.0 Acute vaginitis (principal); B96.89 Other specified bacterial agents as the cause of diseases classified elsewhere; N93.9 Abnormal uterine and vaginal bleeding, unspecified; R39.198 Other difficulties with micturition; R30.9 Painful micturition, unspecified; R31.9 Hematuria, unspecified; Z88.8 Allergy status to other drugs, medicaments and biological substances
CPT/HCPCS: 36415; 76856; 80053; 81001; 81025; 83690; 84702; 85025; 87086; 87088; 87210; 87491; 87591; 93976; 99284

== ENCOUNTER 2019-07-22 02:26 | Emergency (ER) | payer SELFPAY ==
--- NOTE | 2019-07-22 02:49 | ER Document Report ---
HPI - HPI Time Seen by Provider: 07/22/19 02:33 Pain Level: 3 Context: Patient is a 29-year-old female that comes emergency department for 2 complaints. First complaint is she was walking up a ramp yesterday, tripped, landed on her left knee and twisted her left ankle. She states now it hurts to walk and there is bruising on the upper part of her leg just below the knee. She denies any other injuries including hand, wrist, head, back injuries. Second complaint is she started feeling chills and like she was running a fever earlier today, she started feeling pain in the lymph nodes of her neck especially on the right side, she started having a very sore throat. She denies cough, congestion, nausea, vomiting, chest pain, neck stiffness, inability to swallow, abdominal pain. She denies any recent travel or obvious sick contacts. Past medical history of tubal ligation, takes no daily medications, denies medical history otherwise. - REPRODUCTIVE Reproductive: DENIES: : Past Medical History - General Information source: Patient - Social History Smoking Status: Never Smoker Frequency of alcohol use: None Drug Abuse: None Lives with: Family Family History: Reviewed & Not Pertinent Patient has suicidal ideation: No Patient has homicidal ideation: No Renal/ Medical History: Reports: Hx Ectopic . Denies: Hx Peritoneal Dialysis Past Surgical History: Reports: Hx Appendectomy, Hx Gynecologic Surgery - Removal of ectopic , Hx Tubal Ligation - Immunizations Immunizations up to date: Yes Hx Diphtheria, Pertussis, Tetanus Vaccination: Yes Vertical Provider Document - CONSTITUTIONAL General Appearance: WD/WN, No Apparent Distress - INFECTION CONTROL TRAVEL OUTSIDE OF THE [place] IN LAST 30 DAYS: No - HEENT HEENT: Atraumatic, Normocephalic. negative: Normal ENT Exam - Exudative pharyngitis noted, uvula normal, patent airway, unremarkable oropharyngeal exam otherwise. Ears, sinuses, eyes unremarkable. - NECK Neck: Other - Bilateral anterior cervical adenopathy, slightly worse on the right, otherwise unremarkable, supple, no nuchal rigidity, no Dalton's angina - RESPIRATORY Respiratory: Breath Sounds Normal, No Respiratory Distress. negative: Wheezing - CARDIOVASCULAR Cardiovascular: Regular Rate, Regular Rhythm. negative: Tachycardia - GI/ABDOMEN Gastrointestinal: Abdomen Soft, Abdomen Non-Tender. negative: Abdomen Tender - BACK Back: Normal Inspection - MUSCULOSKELETAL/EXTREMETIES Musculoskeletal/Extremeties: MAJANI, FROM. negative: Non-Tender - There is contusion just below the patella of the left proximal tibia, there is also mild tenderness over the left ankle laterally over the lateral malleolus. No contusion noted at the ankle. Normal distal pulses, normal range of motion at the ankle and knee, no open wounds. Normal hip exam. Unremarkable extremities otherwise. - NEURO Level of Consciousness: Awake, Alert, Appropriate Motor/Sensory: No Motor Deficit, No Sensory Deficit - DERM Integumentary: Warm, Dry, No Rash Course - Re-evaluation Re-evalutation: X-rays of the lower extremity are negative. Patient has an examination consistent with contusion but no concerning findings are noted including no swelling, severe pain suggesting compartment syndrome, no numbness, normal neurovascular exam. Patient is requesting a knee immobilizer and she is provided with this. Patient's evaluation is very suggestive of strep pharyngitis, this test was performed and positive. She has no other symptoms other than sore throat, fever, lymphadenopathy except for the orthopedic concerns. I discussed with patient that we have a low suspicion of coronavirus as result and she was not tested for this. She has no concerning risk factors. Vital signs unremarkable. Patient treated with Decadron, amoxicillin, discussed expectations, follow-up, return precautions. Patient states understanding and agreement. - Vital Signs Vital signs: Temp Pulse Resp BP Pulse Ox 98.4 F 78 16 112/65 98 07/22/19 02:32 07/22/19 02:32 07/22/19 02:32 07/22/19 02:32 07/22/19 02:32 Procedures - Immobilization Left knee Pre-Proc Neuro Vasc Exam: Normal Immobilizer type: Knee immobilizer Performed by: RN Post-Proc Neuro Vasc Exam: Normal Alignment checked and good: Yes Discharge - Discharge Clinical Impression: Strep pharyngitis, Anterior cervical adenopathy, Left leg pain Left knee pain Qualifiers: Chronicity: acute Qualified Code(s): M25.562 - Pain in left knee Left ankle pain Qualifiers: Chronicity: acute Qualified Code(s): M25.572 - Pain in left ankle and joints of left foot Condition: Stable Disposition: HOME, SELF-CARE Additional Instructions: Your x-rays of the leg do not show any concerning findings, your evaluation is consistent with soft tissue contusion, this should simply resolve with time. I recommend that you elevate it, ice it 3-4 times a day, take the anti- inflammatory as prescribed. If desired you can use the crutches and knee immobilizer to assist with your symptoms. You also have strep throat, a bacterial infection, take antibiotics as prescribed to completion, take Tylenol for pain if needed. Drink plenty of fluids. Prescriptions: Amoxicillin Trihydrate [Amoxil 500 mg Capsule] 500 mg PO BID 10 Days #20 capsule Naproxen 500 mg PO BID PRN 7 Days #14 tablet PRN Reason:
[2019-07-22] MEDS ORDERED: DEXAMETHASONE SOD PHOS INJ 10 MG/1 ML VIAL IM ONE (04:28)
[2019-07-22] MEDS ORDERED: ACETAMINOPHEN 325 MG TABLET PO ONE (04:28)
[2019-07-22] MEDS ORDERED: AMOXICILLIN TRIHYDRATE 500 MG CAPSULE PO ONE (04:28)
--- NOTE | 2019-07-22 05:14 | RADIOLOGY REPORT (SQ) ---
EXAM DESCRIPTION: XR KNEE 4 OR MORE VIEWS COMPLETED DATE/TME: 07/22/2019 02:47 CLINICAL HISTORY: 29 years, Female, fall, pain COMPARISON: None. NUMBER OF VIEWS: 4 TECHNIQUE: 4 view left knee LIMITATIONS: None. FINDINGS: Negative for fracture or dislocation. No evidence for joint effusion. IMPRESSION: Negative exam copyright 2011 [employer]- All Rights Reserved
--- NOTE | 2019-07-22 05:15 | RADIOLOGY REPORT (SQ) ---
EXAM DESCRIPTION: XR ANKLE 3 OR MORE VIEWS COMPLETED DATE/TME: 07/22/2019 02:47 CLINICAL HISTORY: 29 years, Female, fall, pain COMPARISON: None. NUMBER OF VIEWS: 3 TECHNIQUE: 3 view left ankle LIMITATIONS: None. FINDINGS: Negative for fracture or dislocation. Soft tissues are unremarkable. Ankle mortise is intact IMPRESSION: Negative exam copyright 2011 [employer]- All Rights Reserved
[2019-07-22 05:56] VITALS: BP 116/60
== END 2019-07-22 06:08 | disposition home or self-care (01) ==
LOC: ER 02:26
DX: S80.12XA Contusion of left lower leg, initial encounter (principal); M25.572 Pain in left ankle and joints of left foot; M25.562 Pain in left knee; W10.2XXA Fall (on)(from) incline, initial encounter; J02.0 Streptococcal pharyngitis
CPT/HCPCS: 99283; 96372; 87880; 73610; 73564; J1100

== ENCOUNTER 2019-08-25 19:44 | Emergency (ER) | payer SELFPAY ==
[2019-08-25] MEDS ORDERED: ACETAMINOPHEN 325 MG TABLET PO ONE (20:01)
[2019-08-25] MEDS ORDERED: METOCLOPRAMIDE HCL INJ/PF 10 MG/2 ML SDV IV ONE (20:49)
[2019-08-25] MEDS ORDERED: DIPHENHYDRAMINE HCL 50 MG/ML VIAL IV ONE (20:49)
[2019-08-25] MEDS ORDERED: NORMAL SALINE 1000 ML 1,000 ML IV ONE (20:49)
[2019-08-25 21:06] LABS: ABSOLUTE LYMPHOCYTES (AUTO) 2.1 10^3/uL (0.5-4.7); ABSOLUTE MONOCYTES (AUTO) 1.2 10^3/uL (0.1-1.4); ABSOLUTE NEUT (AUTO) 8.7 10^3/uL (1.7-8.2); BASOPHILS % (AUTO) 0.2 % (0-2); HEMATOCRIT 35.2 % (36.0-47.0); HEMOGLOBIN 12.5 g/dL (12.0-15.5); LYMPHOCYTES % (AUTO) 17.2 % (13-45); MEAN CORPUSCULAR HGB CONC 35.6 g/dL (32.0-36.0); MEAN CORPUSCULAR VOLUME 84 fl (80-97); MONOCYTES % (AUTO) 10.1 % (3-13); PLATELET COUNT 243 10^3/uL (150-450); RED BLOOD COUNT 4.17 10^6/uL (3.72-5.28); RED CELL DISTRIBUTION WIDTH 13.3 % (11.5-14.0); SEGMENTED NEUTROPHILS % (AUTO) 72.5 % (42-78); TOTAL CELLS COUNTED % (AUTO) 100 %
[2019-08-25 21:24] LABS: ALBUMIN 4.1 g/dL (3.5-5.0); ALKALINE PHOSPHATASE 114 U/L (38-126); ANION GAP 7 (5-19); ASPARTATE AMINO TRANSFERASE 19 U/L (14-36); BILIRUBIN,DIRECT 0.1 mg/dL (0.0-0.4); BLOOD UREA NITROGEN 12 mg/dL (7-20); CALCIUM 9.1 mg/dL (8.4-10.2); CARBON DIOXIDE 25 mmol/L (22-30); CHLORIDE 102 mmol/L (98-107); GLUCOSE 95 mg/dL (75-110); POTASSIUM 3.8 mmol/L (3.6-5.0); TOTAL PROTEIN 7.2 g/dL (6.3-8.2)
[2019-08-25 21:34] LABS: APPEARANCE,URINE CLOUDY; BILIRUBIN,URINE NEGATIVE (NEGATIVE); COLOR,URINE YELLOW; GLUCOSE, URINE NEGATIVE (NEGATIVE); KETONES,URINE TRACE mg/dL (NEGATIVE); LEUKOCYTE ESTERASE,URINE MODERATE (NEGATIVE); NITRITE,URINE NEGATIVE (NEGATIVE); PROTEIN,URINE 30 mg/dL (NEGATIVE); URINE SPECIFIC GRAVITY 1.025
--- NOTE | 2019-08-25 21:51 | RADIOLOGY REPORT (SQ) ---
EXAM DESCRIPTION: X-RAY CHEST- One View CLINICAL HISTORY: Fever COMPARISON: None available TECHNIQUE: Single view of the chest. FINDINGS: There are no discrete air space infiltrates, pneumothoraces or pleural effusions. The pulmonary vascularity is normal. The cardiomediastinal silhouette is normal in size. No suspicious lytic or blastic osseous lesions are identified. IMPRESSION: There are no acute lung parenchymal findings.
[2019-08-25] MEDS ORDERED: CEFTRIAXONE 1 GM/D5W RTU 1 GM/50 ML RTUPB IV ONE (22:23)
[2019-08-25] MEDS ORDERED: ONDANSETRON ODT 4 MG TAB (6 TAB/ER DISP) PO PRN (22:50)
[2019-08-25 22:56] VITALS: BP 108/66
--- NOTE | 2019-08-26 01:08 | ER Document Report ---
Entered by MERLYN SAAVEDRA SCRIBE 08/25/[id number] Acting as scribe for:PALOMO BELLO DO ED General - General Chief Complaint: Fever Stated Complaint: HEADACHE/SWEATS Time Seen by Provider: 08/25/19 20:30 Information source: Patient Notes: This 29 year old female patient presents to the emergency department today with complaints of a headache since this morning. Patient states she is nauseous and has vomited. Patient states her urine smells and her last menstrual period was a x1 week ago. Patient states she did not know she had a fever until arriving to the ED. Patient states she has not been traveling or around anyone who is sick. TRAVEL OUTSIDE OF THE [place] IN LAST 30 DAYS: No - Related Data Allergies/Adverse Reactions: fentanyl Allergy (Verified 05/23/19 17:49) Past Medical History - General Information source: Patient - Social History Smoking Status: Never Smoker Cigarette use (# per day): No Family History: Reviewed & Not Pertinent Patient has homicidal ideation: No Renal/ Medical History: Reports: Hx Ectopic Past Surgical History: Reports: Hx Appendectomy, Hx Gynecologic Surgery - Removal of ectopic , Hx Tubal Ligation - Immunizations Immunizations up to date: Yes Hx Diphtheria, Pertussis, Tetanus Vaccination: Yes Review of Systems - Review of Systems Constitutional: See HPI, Fever EENT: No symptoms reported Cardiovascular: No symptoms reported Respiratory: No symptoms reported Gastrointestinal: See HPI, Nausea, Vomiting Genitourinary: See HPI Female Genitourinary: See HPI Musculoskeletal: No symptoms reported Skin: No symptoms reported Hematologic/Lymphatic: No symptoms reported Neurological/Psychological: See HPI, Headaches -: Yes All other systems reviewed and negative Physical Exam - Vital signs Vitals: Temp 101.9 F H 08/25/19 19:44 - General General appearance: Alert In distress: Mild - HEENT Head: Other - Tenderness with palpation to the frontal region. Eyes: Normal Pupils: PERRL Mucous membranes: Dry - Respiratory Respiratory status: No respiratory distress Chest status: Nontender Breath sounds: Normal Chest palpation: Normal - Cardiovascular Rhythm: Regular Heart sounds: Normal auscultation Murmur: No - Abdominal Inspection: Normal Distension: No distension Bowel sounds: Normal Notes: Mild to moderate tenderness with palpation to the suprapubic region. Upper abdomen nontender. - Back Back: CVA tenderness - Bilaterally - Extremities General upper extremity: Normal inspection. No: Edema General lower extremity: Normal inspection. No: Edema - Neurological Neuro grossly intact: Yes Cognition: Normal Orientation: AAOx4 - Psychological Associated symptoms: Normal affect, Normal mood - Skin Skin Temperature: Warm Skin Moisture: Dry Skin Color: Normal Course - Re-evaluation Re-evalutation: 08/25/19 22:40 MDM 29 year old female arrives with complaints of headache and nausea and vomiting and strong smelling urine. Did not know she had a fever. Frontal headache worsened over today. No sick contacts and no cough or travel. Feels better after treatment here. Feel this represents pylonephritis - Vital Signs Vital signs: Temp Pulse Resp BP Pulse Ox 98.2 F 81 20 108/66 97 08/25/19 23:04 08/25/19 23:04 08/25/19 23:04 08/25/19 23:04 08/25/19 23:04 - Laboratory Result Diagrams: 08/25/19 20:32 08/25/19 20:32 Laboratory results interpreted by me: 08/25/19 08/25/19 08/25/19 20:32 20:32 21:20 WBC 12.0 H Hct 35.2 L Absolute Neuts (auto) 8.7 H Sodium 133.7 L Lactic Acid Urine Protein 30 H Urine Ketones TRACE H Urine Blood MODERATE H Urine Urobilinogen 2.0 H Ur Leukocyte Esterase MODERATE H 08/25/19 21:29 WBC Hct Absolute Neuts (auto) Sodium Lactic Acid 0.5 L Urine Protein Urine Ketones Urine Blood Urine Urobilinogen Ur Leukocyte Esterase Discharge - Discharge Clinical Impression: Acute pyelonephritis Condition: Stable Disposition: HOME, SELF-CARE Instructions: Acetaminophen, Antibiotic Therapy ([facility]), Antinausea Medication ([facility]), Fever ([facility]), Rocephin ([facility]) Additional Instructions: Rest, no work 08/25. Take the antibiotics as directed. Please return here for fever, persistent vomiting, other problems or other concerns. Prescriptions: Ondansetron [Zofran Odt 4 mg Tablet (6 Tab/ER Disp)] 4 tab PO Q6HP PRN #1 dspk PRN Reason: Cephalexin Monohydrate [Keflex 500 mg Capsule] 500 mg PO TID #30 capsule Forms: Return to Work I personally performed the services described in the documentation, reviewed and edited the documentation which was dictated to the scribe in my presence, and it accurately records my words and actions.
== END 2019-08-25 23:04 | disposition home or self-care (01) ==
LOC: ER 19:44
DX: N10 Acute pyelonephritis (principal); R51 Headache; R11.2 Nausea with vomiting, unspecified; R50.9 Fever, unspecified; Z98.51 Tubal ligation status
CPT/HCPCS: 99284; 96361; 96375; 96365; 36415; 87040; 83605; 83735; 85025; 81025; 87077; 80053; 81001; 71045; J1200; J2765; J7030; J0696; 87186

== ENCOUNTER 2019-09-25 09:49 | Emergency (ER) | payer SELFPAY ==
[2019-09-25 10:39] LABS: ABSOLUTE LYMPHOCYTES (AUTO) 1.5 10^3/uL (0.5-4.7); ABSOLUTE MONOCYTES (AUTO) 0.7 10^3/uL (0.1-1.4); ABSOLUTE NEUT (AUTO) 5.1 10^3/uL (1.7-8.2); BASOPHILS % (AUTO) 0.4 % (0-2); EOSINOPHILS % (AUTO) 0.4 % (0-6); HEMATOCRIT 37.8 % (36.0-47.0); HEMOGLOBIN 12.9 g/dL (12.0-15.5); LYMPHOCYTES % (AUTO) 20.6 % (13-45); MEAN CORPUSCULAR HEMOGLOBIN 29.5 pg (27.0-33.4); MEAN CORPUSCULAR HGB CONC 34.2 g/dL (32.0-36.0); MEAN CORPUSCULAR VOLUME 86 fl (80-97); MONOCYTES % (AUTO) 9.7 % (3-13); PLATELET COUNT 161 10^3/uL (150-450); RED BLOOD COUNT 4.38 10^6/uL (3.72-5.28); RED CELL DISTRIBUTION WIDTH 13.9 % (11.5-14.0); SEGMENTED NEUTROPHILS % (AUTO) 68.9 % (42-78); TOTAL CELLS COUNTED % (AUTO) 100 %; WHITE BLOOD COUNT 7.4 10^3/uL (4.0-10.5)
[2019-09-25 10:46] LABS: APPEARANCE,URINE CLOUDY; BILIRUBIN,URINE NEGATIVE (NEGATIVE); COLOR,URINE YELLOW; GLUCOSE, URINE NEGATIVE (NEGATIVE); KETONES,URINE NEGATIVE (NEGATIVE); LEUKOCYTE ESTERASE,URINE SMALL (NEGATIVE); NITRITE,URINE NEGATIVE (NEGATIVE); PROTEIN,URINE NEGATIVE (NEGATIVE); URINE SPECIFIC GRAVITY 1.006; UROBILINOGEN,URINE NEGATIVE mg/dL (<2.0)
[2019-09-25 11:03] LABS: ALBUMIN 4.1 g/dL (3.5-5.0); ALKALINE PHOSPHATASE 75 U/L (38-126); ANION GAP 6 (5-19); ASPARTATE AMINO TRANSFERASE 19 U/L (14-36); BILIRUBIN,TOTAL 0.9 mg/dL (0.2-1.3); BLOOD UREA NITROGEN 10 mg/dL (7-20); CALCIUM 9.3 mg/dL (8.4-10.2); CARBON DIOXIDE 28 mmol/L (22-30); CHLORIDE 103 mmol/L (98-107); GLUCOSE 105 mg/dL (75-110); POTASSIUM 3.6 mmol/L (3.6-5.0)
[2019-09-25] MEDS ORDERED: CEFTRIAXONE INJ 250 MG VIAL IV ONE (11:38)
[2019-09-25] MEDS ORDERED: ONDANSETRON HCL INJ/PF 4 MG/2 ML SDV IV ONE (11:38)
[2019-09-25] MEDS ORDERED: LIDOCAINE 5% (700 MG) TRANSDERMAL ADH..PATCH TP ONE (11:38)
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
[2019-09-25 11:50] LABS: BACTERIA (WET MOUNT) 4+ BACTERIA SEEN; EPITHELIALS (WET MOUNT) 4+ EPITHELIALS SEEN; T.VAGINALIS (WET MOUNT) NO TRICHOMONAS SEEN; WBCS (WET MOUNT) 1+ WBCS SEEN; YEAST (WET MOUNT) NO YEAST SEEN
[2019-09-25] MEDS ORDERED: AZITHROMYCIN 250 MG TABLET PO ONE (12:49)
[2019-09-25 13:19] LABS: CHLAM PCR NOT DETECTED (NOT DETECT)
[2019-09-25 13:47] VITALS: BP 109/69
== END 2019-09-25 13:49 | disposition home or self-care (01) ==
LOC: ER 09:49
DX: N76.0 Acute vaginitis (principal); B96.89 Other specified bacterial agents as the cause of diseases classified elsewhere; N39.0 Urinary tract infection, site not specified; M54.5 Low back pain; R11.0 Nausea; R10.9 Unspecified abdominal pain
CPT/HCPCS: 99283; 96365; 36415; 87210; 83690; 85025; 81025; 80053; 81001; 87491; 87591; J0696

== ENCOUNTER 2019-10-10 16:34 | Emergency (ER) | payer SELFPAY ==
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
[2019-10-10 17:33] LABS: AMORPHOUS SEDIMENT,URINE TRACE /HPF; APPEARANCE,URINE CLOUDY; BILIRUBIN,URINE NEGATIVE (NEGATIVE); COLOR,URINE YELLOW; GLUCOSE, URINE NEGATIVE (NEGATIVE); KETONES,URINE NEGATIVE (NEGATIVE); LEUKOCYTE ESTERASE,URINE NEGATIVE (NEGATIVE); NITRITE,URINE NEGATIVE (NEGATIVE); PROTEIN,URINE NEGATIVE (NEGATIVE); URINE SPECIFIC GRAVITY 1.018; UROBILINOGEN,URINE NEGATIVE mg/dL (<2.0)
[2019-10-10 18:44] LABS: BACTERIA (WET MOUNT) 4+ BACTERIA SEEN; EPITHELIALS (WET MOUNT) 4+ EPITHELIALS SEEN; RBCS (WET MOUNT) 2+ RBCS SEEN; T.VAGINALIS (WET MOUNT) NO TRICHOMONAS SEEN; WBCS (WET MOUNT) 3+ WBCS SEEN; YEAST (WET MOUNT) NO YEAST SEEN
[2019-10-10] MEDS ORDERED: AZITHROMYCIN 1 GM SUSP PACKET PO ONE (18:50)
[2019-10-10] MEDS ORDERED: LIDOCAINE 1% INJ-PF (10 MG/ML) 30 ML SDV NEB ONE (18:50)
[2019-10-10] MEDS ORDERED: CEFTRIAXONE INJ 250 MG VIAL IM ONE (18:50)
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
[2019-10-10] MEDS ORDERED: LIDOCAINE 1% INJ-PF (10 MG/ML) 30 ML SDV IM ONE (19:17)
[2019-10-10 19:21] VITALS: BP 121/72
[2019-10-10] MEDS ORDERED: AZITHROMYCIN 250 MG TABLET PO ONE (19:32)
[2019-10-10 19:55] LABS: CHLAM PCR NOT DETECTED (NOT DETECT)
== END 2019-10-10 19:46 | disposition home or self-care (01) ==
LOC: ER 16:34
DX: Z20.2 Contact with and (suspected) exposure to infections with a predominantly sexual mode of transmission (principal)
CPT/HCPCS: 99283; 96372; 87210; 81025; 81001; 87491; 87591; J3490; J0696

== ENCOUNTER 2019-11-27 15:26 | Emergency (ER) | payer SELFPAY ==
--- NOTE | 2019-11-27 16:14 | ER Document Report ---
ED GI/ - General Chief Complaint: Flank Pain Stated Complaint: RIGHT LOWER ABDOMINAL PAIN Time Seen by Provider: 11/27/19 15:47 Notes: CHIEF COMPLAINT: Right flank pain HPI: 29-year-old female brought by EMS for evaluation of right flank pain. Patient states that she had developed some discomfort in the right flank region 5 or 6 days ago it has progressively worsened she developed nausea yesterday and had a subjective fever last night. Patient reports increased discomfort of urination and urinating small amounts over the last 2 days. States that she thought she saw some discharge when attempting to urinate but states it was definitely not vaginal. Denies pelvic pain. States pain is up in the left flank region and hurts when she moves or walks. ROS: See HPI - all other systems were reviewed and are otherwise negative Constitutional: no fever Eyes: no drainage, no blurred vision ENT: no runny nose, no sore throat Cardiovascular: no chest pain Resp: no SOB, no cough GI: no vomiting, no diarrhea, + abdominal pain, positive nausea : Positive dysuria, positive frequency Integumentary: no rash Allergy: no hives Musculoskeletal: no extremity pain or swelling Neurological: no numbness/tingling, no weakness MEDICATIONS: I agree with the patient medications as charted by the RN. ALLERGIES: I agree with the allergies as charted by the RN. PAST MEDICAL HISTORY/PAST SURGICAL HISTORY: Reviewed and agree as charted by RN. SOCIAL HISTORY: Reviewed and agree as charted by RN. FAMILY HISTORY: No significant familial comorbid conditions directly related to patient complaint EXAM: Reviewed vital signs as charted by RN. CONSTITUTIONAL: Alert and oriented and responds appropriately to questions. Well-appearing; well-nourished, mild distress secondary to pain HEAD: Normocephalic; atraumatic EYES: PERRL; Conjunctivae clear, sclerae non-icteric ENT: normal nose; no rhinorrhea; moist mucous membranes; pharynx without lesions noted, no uvula edema or deviation, no tonsillar hypertrophy, phonation normal NECK: Supple without meningismus; non-tender; no cervical lymphadenopathy, no masses CARD: RRR; no murmurs, no clicks, no rubs, no gallops; symmetric distal pulses RESP: Normal chest excursion without splinting or tachypnea; breath sounds clear and equal bilaterally; no wheezes, no rhonchi, no rales, pulse oximetry ABD/GI: Normal bowel sounds; non-distended; soft, mild tenderness in the right lower quadrant moderate tenderness in the right lateral flank region on palpation, no rebound, no guarding; no palpable organomegaly or masses. BACK: The back appears normal and is non-tender to palpation, there is mild right CVA tenderness EXT: Normal ROM in all joints; non-tender to palpation; no cyanosis, no effusions, no edema SKIN: Normal color for age and race; warm; dry; good turgor; no acute lesions noted NEURO: Moves all extremities equally; Motor and sensory function intact PSYCH: The patient's mood and manner are appropriate. Grooming and personal hygiene are appropriate. MDM: 29-year-old female with right flank pain progressive over 5 or 6 days with frequency of urination and dysuria. States she has had a kidney infection in the past no history of kidney stones. States she has had a tubal ligation denies . Denies vaginal discharge or bleeding. Patient was given Zofran and fentanyl 100 mcg by EMS. Still appears mildly uncomfortable. Once test has resulted will give Toradol, will obtain CT imaging to evaluate for renal abscess or pyelonephritis TRAVEL OUTSIDE OF THE [place] IN LAST 30 DAYS: No - Related Data Allergies/Adverse Reactions: promethazine [From Phenergan] Adverse Reaction (Verified 11/27/19 15:34) Past Medical History - Social History Smoking Status: Never Smoker Chew tobacco use (# tins/day): No Frequency of alcohol use: Occasional Drug Abuse: None Family History: Reviewed & Not Pertinent Patient has homicidal ideation: No Renal/ Medical History: Reports: Hx Ectopic . Denies: Hx Peritoneal Dialysis Past Surgical History: Reports: Hx Appendectomy, Hx Gynecologic Surgery - Removal of ectopic , Hx Tubal Ligation - Immunizations Immunizations up to date: Yes Hx Diphtheria, Pertussis, Tetanus Vaccination: Yes Physical Exam - Vital signs Vitals: Temp Pulse Resp BP Pulse Ox 99.4 F 99 16 135/77 H 100 11/27/19 15:32 11/27/19 15:32 11/27/19 15:32 11/27/19 15:32 11/27/19 15:32 Course - Re-evaluation Re-evalutation: 11/27/19 18:06 Patient lab work does not show significant abnormalities she does have a mild urinary infection. CT imaging does not reveal acute findings. On my review of the imaging she does appear to be significantly constipated on the right. Given the otherwise normal lab work patient may have acute cystitis, possibly early pyelonephritis although I would suspect cystitis based on imaging as there are no inflammatory changes around the kidney or ureter. Will give Rocephin in the emergency department keep patient on Keflex, follow-up PCP - Vital Signs Vital signs: Temp Pulse Resp BP Pulse Ox 99.4 F 99 16 135/77 H 100 11/27/19 15:32 11/27/19 15:32 11/27/19 15:32 11/27/19 15:32 11/27/19 15:32 - Laboratory Result Diagrams: 11/27/19 15:05 11/27/19 15:05 Laboratory results interpreted by me: 11/27/19 11/27/19 15:05 16:18 WBC 10.9 H Absolute Neuts (auto) 8.4 H Urine Protein 30 H Urine Blood LARGE H Ur Leukocyte Esterase TRACE H Discharge - Discharge Clinical Impression: Flank pain, acute Acute cystitis Qualifiers: Hematuria presence: with hematuria Qualified Code(s): N30.01 - Acute cystitis with hematuria Constipation Qualifiers: Constipation type: unspecified constipation type Qualified Code(s): K59.00 - Constipation, unspecified Vomiting Qualifiers: Vomiting type: unspecified Vomiting Intractability: non-intractable Nausea presence: with nausea Qualified Code(s): R11.2 - Nausea with vomiting, unspecified Condition: Stable Disposition: HOME, SELF-CARE Additional Instructions: Take the medications as prescribed. Your lab work and imaging studies today suggest a bladder infection. It was noted that you are also mildly constipated. Follow-up closely with your primary care provider for reevaluation of your symptoms call for appointment. Return for fever greater than 101 or worsening pain or problems Prescriptions: Cephalexin Monohydrate [Keflex 500 mg Capsule] 500 mg PO Q6H 7 Days #28 capsule Polyethylene Glycol 3350 [Miralax] 1 cap PO DAILY #527 powder Diclofenac Sodium [Voltaren 50 Mg Tablet.] 50 mg PO BID #20 tablet. Ondansetron [Zofran Odt 4 mg Tablet] 1 - 2 tab PO Q4H PRN #15 tab.rapdis PRN Reason: For Nausea/Vomiting Referrals: TIEN GASCA MD [COMMUNITY BASED STAFF] - Follow up as needed
[2019-11-27 16:16] LABS: ABSOLUTE EOSINOPHILS # (AUTO) 0.1 10^3/uL (0.0-0.6); ABSOLUTE LYMPHOCYTES (AUTO) 1.5 10^3/uL (0.5-4.7); ABSOLUTE NEUT (AUTO) 8.4 10^3/uL (1.7-8.2); BASOPHILS % (AUTO) 0.1 % (0-2); EOSINOPHILS % (AUTO) 0.5 % (0-6); HEMATOCRIT 40.7 % (36.0-47.0); HEMOGLOBIN 13.8 g/dL (12.0-15.5); LYMPHOCYTES % (AUTO) 13.5 % (13-45); MEAN CORPUSCULAR HEMOGLOBIN 29.5 pg (27.0-33.4); MEAN CORPUSCULAR HGB CONC 33.9 g/dL (32.0-36.0); MEAN CORPUSCULAR VOLUME 87 fl (80-97); MONOCYTES % (AUTO) 9.4 % (3-13); PLATELET COUNT 199 10^3/uL (150-450); RED BLOOD COUNT 4.66 10^6/uL (3.72-5.28); RED CELL DISTRIBUTION WIDTH 13.5 % (11.5-14.0); SEGMENTED NEUTROPHILS % (AUTO) 76.5 % (42-78); TOTAL CELLS COUNTED % (AUTO) 100 %; WHITE BLOOD COUNT 10.9 10^3/uL (4.0-10.5)
[2019-11-27 16:23] LABS: ALBUMIN 4.5 g/dL (3.5-5.0); ALKALINE PHOSPHATASE 87 U/L (38-126); ANION GAP 8 (5-19); ASPARTATE AMINO TRANSFERASE 20 U/L (14-36); BILIRUBIN,DIRECT 0.3 mg/dL (0.0-0.4); BILIRUBIN,TOTAL 0.9 mg/dL (0.2-1.3); BLOOD UREA NITROGEN 13 mg/dL (7-20); CARBON DIOXIDE 28 mmol/L (22-30); CHLORIDE 104 mmol/L (98-107); GLUCOSE 88 mg/dL (75-110); TOTAL PROTEIN 7.4 g/dL (6.3-8.2)
[2019-11-27 17:05] LABS: APPEARANCE,URINE SLIGHTLY-CLOUDY; BILIRUBIN,URINE NEGATIVE (NEGATIVE); COLOR,URINE YELLOW; GLUCOSE, URINE NEGATIVE (NEGATIVE); KETONES,URINE NEGATIVE (NEGATIVE); LEUKOCYTE ESTERASE,URINE TRACE (NEGATIVE); NITRITE,URINE NEGATIVE (NEGATIVE); PROTEIN,URINE 30 mg/dL (NEGATIVE); URINE SPECIFIC GRAVITY 1.024; UROBILINOGEN,URINE NEGATIVE mg/dL (<2.0)
[2019-11-27 17:21] LABS: URINE AMPHETAMINES SCREEN NEGATIVE; URINE BARBITURATES SCREEN NEGATIVE; URINE BENZODIAZEPINES SCREEN NEGATIVE; URINE COCAINE SCREEN NEGATIVE; URINE MARIJUANA (THC) SCREEN NEGATIVE; URINE METHADONE SCREEN NEGATIVE; URINE PHENCYCLIDINE SCREEN NEGATIVE
[2019-11-27] MEDS ORDERED: KETOROLAC TROMETHAMINE INJ/PF 30 MG/1 ML SDV IV ONE (17:30)
--- NOTE | 2019-11-27 18:02 | RADIOLOGY REPORT (SQ) ---
EXAM DESCRIPTION: CT ABD/PELVIS WITH IV ONLY IMAGES COMPLETED DATE/TIME: 11/27/2019 5:47 pm REASON FOR STUDY: right flank pain eval for pyelo COMPARISON: 09/23/2018 TECHNIQUE: CT scan of the abdomen and pelvis performed using helical scanning technique with dynamic intravenous contrast injection. No oral contrast. Images reviewed with lung, soft tissue, and bone windows. Reconstructed coronal and sagittal MPR images reviewed. Delayed images for evaluation of the urinary system also acquired. All images stored on PACS. All CT scanners at this facility use dose modulation, iterative reconstruction, and/or weight based d osing when appropriate to reduce radiation dose to as low as reasonably achievable (ALARA). [facility]: Dose Right [facility]: CareDose [facility]: Dose Right [facility]: Teradose 4D [facility]: [employer] CONTRAST TYPE AND DOSE: contrast/concentration: Isovue 350.00 mmol/ml; Total Contrast Delivered: 62. 0 ml; Total Saline Delivered: 60.2 ml RENAL FUNCTION: BUN 13 creatinine 0.83 RADIATION DOSE: CT Rad equipment meets quality standard of care and radiation dose reduction techniq ues were employed. CTDIvol: 4.8 - 5.5 mGy. DLP: 565 mGy-cm.. LIMITATIONS: None. FINDINGS: LOWER CHEST: No significant findings. No nodules or infiltrates. LIVER: Normal size. No masses. No dilated ducts. SPLEEN: Normal size. No focal lesions. PANCREAS: No masses. No significant calcifications. No adjacent inflammation or peripancreatic fluid collections. Pancreatic duct not dilated. GALLBLADDER: No identified stones by CT criteria. No inflammatory changes to suggest cholecystitis. ADRENAL GLANDS: No significant masses or asymmetry. RIGHT KIDNEY AND URETER: No solid masses. No significant calcifications. No hydronephrosis or hyd roureter. LEFT KIDNEY AND URETER: No solid masses. No significant calcifications. No hydronephrosis or hydr oureter. AORTA AND VESSELS: No aneurysm. No dissection. Renal arteries, SMA, celiac without stenosis. RETROPERITONEUM: No retroperitoneal adenopathy, hemorrhage or masses. BOWEL AND PERITONEAL CAVITY: Retained stool. No obvious bowel mass or inflammation. APPENDIX: Surgically absent. PELVIS: No mass. No free fluid. Normal bladder. ABDOMINAL WALL: No masses. No hernias. BONES: No significant or acute findings. OTHER: No other significant finding. IMPRESSION: NO SIGNIFICANT OR ACUTE FINDING IN THE ABDOMEN OR PELVIS ON CT SCAN WITH IV CONTRAST. TECHNICAL DOCUMENTATION: JOB ID: [id number] Quality ID # [id number]: Final reports with documentation of one or more dose reduction techniques (e.g., Au tomated exposure control, adjustment of the mA and/or kV according to patient size, use of iterative reconstruction technique) 2010 [employer]- All Rights Reserved Reading location - IP/workstation name: [email or web address]
[2019-11-27] MEDS ORDERED: CEFTRIAXONE 1 GM/D5W RTU 1 GM/50 ML RTUPB IV ONE (18:05)
[2019-11-27 19:14] VITALS: BP 122/66
== END 2019-11-27 19:14 | disposition home or self-care (01) ==
LOC: ER 15:26
DX: N30.01 Acute cystitis with hematuria (principal); K59.00 Constipation, unspecified; R11.2 Nausea with vomiting, unspecified; Z98.51 Tubal ligation status
CPT/HCPCS: 99285; 96375; 96365; 36415; 83690; 85025; 81025; 80053; 81001; 80307; 74177; J1885; J0696

== ENCOUNTER 2020-03-31 16:41 | Emergency (ER) | payer SELFPAY ==
[2020-03-31] MEDS ORDERED: NORMAL SALINE 1000 ML 1,000 ML IV ONE (18:02)
[2020-03-31] MEDS ORDERED: DIPHENHYDRAMINE HCL 50 MG/ML VIAL IV ONE (18:04)
[2020-03-31] MEDS ORDERED: METOCLOPRAMIDE HCL INJ/PF 10 MG/2 ML SDV IV ONE (18:04)
--- NOTE | 2020-03-31 18:06 | ER Document Report ---
ED Medical Screen (RME) - General Chief Complaint: Flu Symptoms Stated Complaint: VOMITING,DIZZINESS,SHORTNESS OF BREATH Time Seen by Provider: 03/31/20 17:57 TRAVEL OUTSIDE OF THE [place] IN LAST 30 DAYS: No - HPI Notes: 03/31/20 18:04 29-year-old female presents to the emergency room today with a 5 out of 5 headache with blurred vision bilaterally that started this morning at 11 AM, no history of headaches or migraines. Patient also is complaining of body aches, vomiting lightheadedness and dizziness. States she lost her sense of taste this morning. Reports last menstrual cycle 02/29/2020, does not take any daily medications. Has not tried any [id number] medications such as Tylenol or ibuprofen or cold medications. Reports she took a hot shower without any relief. Patient did not get a flu shot this year. Denies being a smoker I have greeted and performed a rapid initial assessment of this patient. A comprehensive ED assessment and evaluation of the patient, analysis of test r esults and completion of the medical decision making process will be conducted by additional ED providers. PHYSICAL EXAMINATION: GENERAL: Acutely ill well-nourished and in mild distress HEAD: Atraumatic, normocephalic. EYES: Pupils equal round extraocular movements intact, conjunctiva are normal. NECK: Normal range of motion CV: s1, s2 regular LUNGS: Diminished breath sounds in upper lobes Musculoskeletal: Normal range of motion NEUROLOGICAL: Normal speech, normal gait. PERRLA, EOMI. Full motor and sensory function throughout. Hydrocrane Operator + 2 equal bilaterally in BUE. Tongue midline. SKIN: Warm, Dry, normal turgor, no rashes or lesions noted. The patient was evaluated during a global COVID-19 pandemic and that diagnosis was suspected/considered upon their initial presentation. Their evaluation, treatment and testing was consistent with current guidelines for patients who present with complaints or symptoms and may be related to COVID-19. - Related Data Allergies/Adverse Reactions: promethazine [From Phenergan] Adverse Reaction (Verified 03/31/20 17:57) Past Medical History - Social History Family history: Reviewed & Not Pertinent Renal/ Medical History: Reports: Hx Ectopic . Denies: Hx Peritoneal Dialysis Past Surgical History: Reports: Hx Appendectomy, Hx Gynecologic Surgery - Removal of ectopic , Hx Tubal Ligation - Immunizations Immunizations up to date: Yes Hx Diphtheria, Pertussis, Tetanus Vaccination: Yes Physical Exam - Vital signs Vitals: Temp Pulse Resp BP Pulse Ox 98.5 F 82 20 126/78 H 98 03/31/20 17:16 03/31/20 17:16 03/31/20 17:16 03/31/20 17:16 03/31/20 17:16 Course - Vital Signs Vital signs: Temp Pulse Resp BP Pulse Ox 98.5 F 82 20 126/78 H 98 03/31/20 17:16 03/31/20 17:16 03/31/20 17:16 03/31/20 17:16 03/31/20 17:16
--- NOTE | 2020-03-31 18:50 | RADIOLOGY REPORT (SQ) ---
EXAM DESCRIPTION: CT HEAD WITHOUT IMAGES COMPLETED DATE/TIME: 03/31/2020 3:35 pm REASON FOR STUDY: severe headache COMPARISON: None. TECHNIQUE: Axial images acquired through the brain without intravenous contrast. Images reviewed wi th bone, brain and subdural windows. Additional sagittal and coronal reconstructions were generated. Images stored on PACS. All CT scanners at this facility use dose modulation, iterative reconstruction, and/or weight based d osing when appropriate to reduce radiation dose to as low as reasonably achievable (ALARA). [facility]: Dose Right [facility]: CareDose [facility]: Dose Right [facility]: Teradose 4D [facility]: [employer] RADIATION DOSE: CT Rad equipment meets quality standard of care and radiation dose reduction techniq ues were employed. CTDIvol: 53.2 mGy. DLP: 1097 mGy-cm. mGy. LIMITATIONS: None. FINDINGS: VENTRICLES: Normal size and contour. CEREBRUM: No masses. No hemorrhage. No midline shift. No evidence for acute infarction. Normal gra y/white matter differentiation. No areas of low density in the white matter. CEREBELLUM: No masses. No hemorrhage. No alteration of density. No evidence for acute infarction. EXTRAAXIAL SPACES: No fluid collections. No masses. ORBITS AND GLOBE: No intra- or extraconal masses. Normal contour of globe without masses. CALVARIUM: No fracture. PARANASAL SINUSES: No fluid or mucosal thickening. SOFT TISSUES: No mass or hematoma. OTHER: No other significant finding. IMPRESSION: No acute intracranial abnormality on noncontrast CT. EVIDENCE OF ACUTE STROKE: NO. COMMENT: Quality ID # 436: Final reports with documentation of one or more dose reduction techniques (e.g., Automated exposure control, adjustment of the mA and/or kV according to patient size, use of iterative reconstruction technique) TECHNICAL DOCUMENTATION: JOB ID: [id number] 2010 [employer]- All Rights Reserved Reading location - IP/workstation name: [email or web address]
--- NOTE | 2020-03-31 18:56 | RADIOLOGY REPORT (SQ) ---
EXAM DESCRIPTION: CHEST SINGLE VIEW IMAGES COMPLETED DATE/TIME: 03/31/2020 3:34 pm REASON FOR STUDY: cough, vomiting COMPARISON: 08/25/2019 EXAM PARAMETERS: NUMBER OF VIEWS: One view. TECHNIQUE: Single frontal radiographic view of the chest acquired. RADIATION DOSE: NA LIMITATIONS: None. FINDINGS: LUNGS AND PLEURA: No opacities, masses or pneumothorax. No pleural effusion. MEDIASTINUM AND HILAR STRUCTURES: No masses. Contour normal. HEART AND VASCULAR STRUCTURES: Heart normal in size. Normal vasculature. BONES: No acute findings. HARDWARE: None in the chest. OTHER: No other significant finding. IMPRESSION: NO ACUTE RADIOGRAPHIC FINDING IN THE CHEST. TECHNICAL DOCUMENTATION: JOB ID: [id number] 2010 [employer]- All Rights Reserved Reading location - IP/workstation name: [email or web address]
[2020-03-31] MEDS ORDERED: ONDANSETRON HCL INJ/PF 4 MG/2 ML SDV IV ONE (20:41)
[2020-03-31] MEDS ORDERED: KETOROLAC TROMETHAMINE INJ/PF 30 MG/1 ML SDV IV ONE (20:41)
[2020-03-31 20:43] LABS: ABSOLUTE LYMPHOCYTES (AUTO) 1.4 10^3/uL (0.5-4.7); ABSOLUTE MONOCYTES (AUTO) 0.7 10^3/uL (0.1-1.4); ABSOLUTE NEUT (AUTO) 2.1 10^3/uL (1.7-8.2); BASOPHILS % (AUTO) 0.6 % (0-2); EOSINOPHILS % (AUTO) 0.9 % (0-6); HEMATOCRIT 36.7 % (36.0-47.0); HEMOGLOBIN 13.2 g/dL (12.0-15.5); LYMPHOCYTES % (AUTO) 32.8 % (13-45); MEAN CORPUSCULAR VOLUME 84 fl (80-97); MONOCYTES % (AUTO) 16.5 % (3-13); PLATELET COUNT 177 10^3/uL (150-450); RED BLOOD COUNT 4.39 10^6/uL (3.72-5.28); RED CELL DISTRIBUTION WIDTH 12.4 % (11.5-14.0); SEGMENTED NEUTROPHILS % (AUTO) 49.2 % (42-78); TOTAL CELLS COUNTED % (AUTO) 100 %; WHITE BLOOD COUNT 4.2 10^3/uL (4.0-10.5)
--- NOTE | 2020-03-31 20:52 | ER Document Report ---
ED General - General Chief Complaint: Flu Symptoms Stated Complaint: VOMITING,DIZZINESS,SHORTNESS OF BREATH Time Seen by Provider: 03/31/20 17:57 Mode of Arrival: Ambulatory Information source: Patient Notes: Patient presents to the ER for evaluation of dry cough with body aches, chills, fever, fatigue that began initially at 11:00 this morning. The patient has had a known exposure to COVID-19. She states she has also lost her sense of taste and smell. She admits to intermittent dizziness with pressure and congestion in her head. She admits to painful respiration as well as some shortness of breath. Nursing notes reviewed and past medical, social, and family histories reviewed and validated. TRAVEL OUTSIDE OF THE [place] IN LAST 30 DAYS: No - Related Data Allergies/Adverse Reactions: promethazine [From Phenergan] Adverse Reaction (Verified 03/31/20 17:57) Past Medical History - General Information source: Patient - Social History Smoking Status: Never Smoker Chew tobacco use (# tins/day): No Frequency of alcohol use: None Drug Abuse: None Lives with: Family Family History: Reviewed & Not Pertinent Patient has suicidal ideation: No Patient has homicidal ideation: No - Past Medical History Cardiac Medical History: Reports: None Pulmonary Medical History: Reports: None EENT Medical History: Reports: None Neurological Medical History: Reports: None Endocrine Medical History: Reports: None Renal/ Medical History: Reports: Hx Ectopic . Denies: Hx Peritoneal Dialysis Malignancy Medical History: Reports: None GI Medical History: Reports: None Musculoskeletal Medical History: Reports None Skin Medical History: Reports None Psychiatric Medical History: Reports: None Traumatic Medical History: Reports: None Infectious Medical History: Reports: None Past Surgical History: Reports: Hx Appendectomy, Hx Gynecologic Surgery - Removal of ectopic , Hx Tubal Ligation - Immunizations Immunizations up to date: Yes Hx Diphtheria, Pertussis, Tetanus Vaccination: Yes Review of Systems - Review of Systems Notes: Constitutional: Positive for fever. HENT: Negative for sore throat. Eyes: Negative for visual changes. Cardiovascular: Negative for chest pain. Respiratory: Positive for shortness of breath. Gastrointestinal: Negative for abdominal pain. Positive for vomiting. Negative for diarrhea. Genitourinary: Negative for dysuria. Musculoskeletal: Negative for back pain. Skin: Negative for rash. Neurological: Negative for headaches, weakness or numbness. 10 point ROS negative except as marked above and in HPI. Physical Exam - Vital signs Vitals: Temp Pulse Resp BP Pulse Ox 98.5 F 82 20 126/78 H 98 03/31/20 17:16 03/31/20 17:16 03/31/20 17:16 03/31/20 17:16 03/31/20 17:16 - Notes Notes: CONSTITUTIONAL: Patient is illappearing. She is in mild distress. SKIN: Warm, dry, and intact without rash EYES: Extraocular movements are grossly intact, clear conjunctiva HENT: Normocephalic, atraumatic, moist mucus membranes. Bilateral nares are boggy and vertical nasal discharge. There is no posterior pharyngeal erythema noted. NECK: No obvious swelling, normal range of motion PULMONARY: Normal chest rise and fall. Breath sounds clear and equal bilaterally. No respiratory distress or stridor CARDIOVASCULAR: Regular rate. No murmurs, rubs, gallops. Distal extremities are warm and well perfused. ABDOMINAL: Soft, nontender NEUROLOGIC: Normal speech, moves all extremities. MUSCULOSKELETAL: No gross deformities, atraumatic PSYCHIATRIC: Normal mood and affect Course - Re-evaluation Re-evalutation: 03/31/20 21:39 Rechecked patient who has responded well to treatment in the ER. Discussed with patient: results, diagnosis, treatment plan, and need for follow-up. Return to the emergency department warnings were given. All questions and concerns were addressed. The plan is agreed with and understood. Patient is stable and ready for discharge. - Vital Signs Vital signs: Temp Pulse Resp BP Pulse Ox 98.5 F 82 20 126/78 H 98 03/31/20 17:16 03/31/20 17:16 03/31/20 17:16 03/31/20 17:16 03/31/20 17:16 - Laboratory Results Result Diagrams: 03/31/20 20:16 03/31/20 20:16 Laboratory Results Interpreted: 03/31/20 03/31/20 20:16 20:16 [place] % (Auto) 16.5 H AST 38 H Critical Laboratory Results Reviewed: No Critical Results - Radiology Results Critical Radiology Results Reviewed: No Critical Results Discharge - Discharge Clinical Impression: Nausea and vomiting, Viral syndrome, Acute upper respiratory infection, Exposure to COVID-19 virus Condition: Stable Disposition: HOME, SELF-CARE Instructions: COVID-19 Guidance for Persons Under Investigation Additional Instructions: Medications as prescribed. Recheck with PCP as directed. Return to the emergency room if your symptoms change or worsen. Prescriptions: Albuterol Sulfate [Proventil Hfa] 2 puff IH Q6HP PRN #1 inhaler PRN Reason: For Wheezing Benzonatate [Tessalon Perles 100 mg Capsule] 100 mg PO Q8HP PRN #40 capsule PRN Reason: Prednisone 10 mg PO DAILY 6 Days #1 pkg Metoclopramide HCl [Reglan 10 mg Tablet] 10 mg PO BID PRN #10 tablet PRN Reason: For Nausea/Vomiting Azithromycin [Zithromax 250 mg Tablet] 250 mg PO ASDIR PRN #6 tablet PRN Reason:
[2020-03-31 21:07] LABS: A TYPE INFLUENZA AG NEGATIVE (NEGATIVE); B INFLUENZA AG NEGATIVE (NEGATIVE)
[2020-03-31 21:15] LABS: ALBUMIN 4.1 g/dL (3.5-5.0); ALKALINE PHOSPHATASE 104 U/L (38-126); ANION GAP 8 (5-19); ASPARTATE AMINO TRANSFERASE 38 U/L (14-36); BILIRUBIN,DIRECT 0.2 mg/dL (0.0-0.4); BILIRUBIN,TOTAL 0.5 mg/dL (0.2-1.3); BLOOD UREA NITROGEN 16 mg/dL (7-20); CARBON DIOXIDE 27 mmol/L (22-30); CHLORIDE 102 mmol/L (98-107); GLUCOSE 80 mg/dL (75-110); POTASSIUM 3.9 mmol/L (3.6-5.0); TOTAL PROTEIN 7.1 g/dL (6.3-8.2)
[2020-03-31 22:21] VITALS: BP 110/65
== END 2020-03-31 22:27 | disposition home or self-care (01) ==
LOC: ER 16:41
DX: U07.1 COVID-19 (principal); J06.9 Acute upper respiratory infection, unspecified; R11.2 Nausea with vomiting, unspecified; R42 Dizziness and giddiness
CPT/HCPCS: 99285; 96361; 96374; 36415; 84702; 85025; 87635; 80053; 87804; 71045; 70450; J1885; J7030; C9803

== ENCOUNTER 2020-04-09 07:13 | Emergency (ER) | payer SELFPAY ==
[2020-04-09 07:30] VITALS: BP 115/70
== END 2020-04-09 08:14 | disposition left against medical advice (07) ==
LOC: ER 07:13
DX: Z53.21 Procedure and treatment not carried out due to patient leaving prior to being seen by health care provider (principal)

== ENCOUNTER 2020-04-12 21:22 | Emergency (ER) | payer SELFPAY ==
[2020-04-12] MEDS ORDERED: HALOPERIDOL LACTATE INJ 5 MG/1 ML VIAL IM ONE (21:31)
[2020-04-12] MEDS ORDERED: LORAZEPAM INJ 2 MG/1 ML VIAL IM ONE (21:31)
--- NOTE | 2020-04-12 21:53 | ER Document Report ---
ED General - General Mode of Arrival: Medic Information source: Law Enforcement TRAVEL OUTSIDE OF THE [place] IN LAST 30 DAYS: No <KISHA CARRIZALES - Last Filed: 04/13/20 02:18> <ALFREDO CARDONA - Last Filed: 04/13/20 11:59> - General Stated Complaint: PSYCH Time Seen by Provider: 04/12/20 21:31 Notes: 29-year-old intoxicated female presenting to the emergency department with a history of found beside the road apparently attempting to walk home. A friend who is with her note that patient's to throw herself in front of traffic. She is brought to the emergency department for evaluation and safety. Patient is intoxicated and is not able to give a coherent story. (KISHA CARRIZALES) - Related Data Allergies/Adverse Reactions: promethazine [From Phenergan] Adverse Reaction (Verified 03/31/20 17:57) Past Medical History - Social History Family History: Reviewed & Not Pertinent Renal/ Medical History: Reports: Hx Ectopic . Denies: Hx Peritoneal Dialysis Past Surgical History: Reports: Hx Appendectomy, Hx Gynecologic Surgery - Removal of ectopic , Hx Tubal Ligation - Immunizations Immunizations up to date: Yes Hx Diphtheria, Pertussis, Tetanus Vaccination: Yes <KISHA CARRIZALES - Last Filed: 04/13/20 02:18> Review of Systems - Review of Systems -: Yes ROS unobtainable due to patient's medical condition - Acutely intoxicated <KISHA CARRIZALES - Last Filed: 04/13/20 02:18> Physical Exam <KISHA CARRIZALES - Last Filed: 04/13/20 02:18> - Vital signs Vitals: Temp Pulse Resp BP Pulse Ox 97.4 F 84 16 116/90 H 100 04/12/20 22:55 04/12/20 22:55 04/12/20 22:55 04/12/20 22:55 04/12/20 22:55 - Notes Notes: PHYSICAL EXAMINATION: Physical Exam: General: Well-nourished well-developed 29-year-old female uncooperative and combative. HEENT: NC/AT, pupils equal round and reactive to light, MM moist,nares clear, oropharynx clear, airway patent Neck: supple, no adenopathy, no masses. Good range of motion Lungs: clear, no wheezing, no rales no rhonchi CVS: Regular rate and rhythm no murmur gallop or rub Abdomen: Soft, active, nontender, no masses, no hepatosplenomegaly Ext: No edema, clubbing or cyanosis. Neuro: Alert and responsive, moving all 4 extremities on command, cranial nerves intact, no focal findings Skin: Intact no open lesions, no rash PSYCH: Normal mood, normal affect. (KISHA CARRIZALES) Course - Laboratory Results Result Diagrams: 04/12/20 22:25 04/12/20 22:25 Critical Laboratory Results Reviewed: No Critical Results <KISHA CARRIZALES - Last Filed: 04/13/20 02:18> - Laboratory Results Result Diagrams: 04/12/20 22:25 04/12/20 22:25 <ALFREDO CARDONA - Last Filed: 04/13/20 11:59> - Re-evaluation Re-evalutation: 04/12/20 21:50 Patient was placed in restraints for safety, Haldol and Ativan ordered for chemical sedation. 04/13/20 02:19 The patient is being held in the emergency department to sober. An assessment of her status will be performed prior to disposition. I discussed the patient with Dr Cotto and he will assume her care until the end of his shift. (KISHA CARRIZALES) - Vital Signs Vital signs: Temp Pulse Resp BP Pulse Ox 98 F 66 18 104/57 L 100 04/13/20 04:13 04/13/20 04:13 04/13/20 04:13 04/13/20 04:13 04/13/20 04:13 - Laboratory Results Laboratory Results Interpreted: 04/12/20 04/13/20 22:25 06:22 Chloride 109 H Urine Protein 100 H Urine Blood LARGE H Urine Nitrite POSITIVE H Salicylates < 1.0 L Acetaminophen < 10 L I have reviewed laboratory data at the time of this evaluation the urine and urine drug screen were still pending. (KISHA CARRIZALES) Discharge <KISHA CARRIZALES - Last Filed: 04/13/20 02:18> <ALFREDO CARDONA - Last Filed: 04/13/20 11:59> - Discharge Clinical Impression: Suicidal ideation Alcohol intoxication Qualifiers: Complication of substance-induced condition: with unspecified complication Qualified Code(s): F10.929 - Alcohol use, unspecified with intoxication, unspecified Condition: Stable Disposition: HOME, SELF-CARE Additional Instructions: You have been evaluated by both medical and behavioral health teams for suicidal ideation and intoxication. You have been deemed appropriate for discharge. While in the emergency department you received the following services/or had access to: Medical screening and assessment, nursing services, dietary services, pharmacological services, one-on-one counseling and/or psychotherapy, environmental services, and continuous observation by a patient site safety representative. Altered Mental Status (alcohol intoxication) An altered mental status is a change in the normal functioning of the brain. This alteration of function can range from minor decreased brain function with some forgetfulness and confusion to complete loss of consciousness and coma. There are many possible causes of an altered mental status and include brain injuries such as trauma or strokes, problems with oxygen supply to the brain, fever and infections of the brain and/or elsewhere in the body, metabolic abnormalities such as low or high blood sugar, overdoses or excessive medication ingestion, and mental and psychiatric illnesses. Sometimes the altered mental status resolves and a definite cause is not determined. If a cause for your altered mental status was found, it has likely been corrected. Your evaluation has not shown any condition that requires that you be admitted to the hospital. It is believed that you are safe to leave and return to your home. If you have a return of your symptoms, you should return for re-evaluation. Suicidal Ideation (while intoxicated) Suicidal ideation is a common medical term for thoughts about suicide, which may be as detailed as a formulated plan, without the suicidal act itself. Although most people who undergo suicidal ideation do not commit suicide, some go on to make suicide attempts. The range of suicidal ideation varies greatly from fleeting to detailed planning, role playing, and unsuccessful attempts. While thoughts about suicide are common, most people do not carry out serious actions to commit suicide. However, based upon your evaluation and discussion with you, we believe you are not currently at risk to act upon your thoughts of suicide. Therefore, you will be discharged home. Follow up care: You are currently not involved in outpatient therapy, but are highly recommended to begin outpatient services. You will benefit from outpatient therapy in which you learn how to identify triggers and learn healthy coping skills. You have been given a community outpatient referral list to include phone numbers for [facility] and [facility] mobile crisis. If you experience worsening or a significant change in your symptoms, notify the physician immediately, utilize mobile crisis, or return to the Emergency Department at any time for re-evaluation. Dr. Dukes was consulted to care management of this patient; attending physicians in [facility] with recommendations and disposition. Referrals: [facility] Team [Outside] - Follow up as needed [facility] [Outside] - Follow up as needed
--- NOTE | 2020-04-12 22:40 | EKG REPORT ---
SEVERITY:- ABNORMAL ECG - SINUS RHYTHM NONSPECIFIC INTRAVENTRICULAR CONDUCTION DELAY : Confirmed by: Leihga Yang 12-Apr-2020 22:40:02
[2020-04-12 23:02] LABS: ABSOLUTE BASOPHILS # (AUTO) 0.1 10^3/uL (0.0-0.2); ABSOLUTE EOSINOPHILS # (AUTO) 0.1 10^3/uL (0.0-0.6); ABSOLUTE MONOCYTES (AUTO) 0.8 10^3/uL (0.1-1.4); ABSOLUTE NEUT (AUTO) 5.2 10^3/uL (1.7-8.2); BASOPHILS % (AUTO) 0.6 % (0-2); EOSINOPHILS % (AUTO) 1.2 % (0-6); HEMATOCRIT 38.6 % (36.0-47.0); HEMOGLOBIN 13.5 g/dL (12.0-15.5); LYMPHOCYTES % (AUTO) 33.2 % (13-45); MEAN CORPUSCULAR HEMOGLOBIN 29.1 pg (27.0-33.4); MEAN CORPUSCULAR HGB CONC 34.8 g/dL (32.0-36.0); MEAN CORPUSCULAR VOLUME 84 fl (80-97); MONOCYTES % (AUTO) 8.6 % (3-13); PLATELET COUNT 262 10^3/uL (150-450); RED BLOOD COUNT 4.62 10^6/uL (3.72-5.28); RED CELL DISTRIBUTION WIDTH 12.6 % (11.5-14.0); SEGMENTED NEUTROPHILS % (AUTO) 56.4 % (42-78); TOTAL CELLS COUNTED % (AUTO) 100 %; WHITE BLOOD COUNT 9.2 10^3/uL (4.0-10.5)
[2020-04-12 23:12] LABS: ALBUMIN 4.3 g/dL (3.5-5.0); ALCOHOL 176 mg/dL (NONE DETECTED); ALKALINE PHOSPHATASE 103 U/L (38-126); ANION GAP 12 (5-19); ASPARTATE AMINO TRANSFERASE 23 U/L (14-36); BILIRUBIN,DIRECT 0.1 mg/dL (0.0-0.4); BILIRUBIN,TOTAL 0.3 mg/dL (0.2-1.3); BLOOD UREA NITROGEN 12 mg/dL (7-20); CALCIUM 9.5 mg/dL (8.4-10.2); CARBON DIOXIDE 23 mmol/L (22-30); CHLORIDE 109 mmol/L (98-107); GLUCOSE 89 mg/dL (75-110); TOTAL PROTEIN 7.2 g/dL (6.3-8.2)
[2020-04-12 23:13] LABS: ACETAMINOPHEN < 10 ug/mL (10-30); SALICYLATE < 1.0 mg/dL (2.0-20.0)
--- NOTE | 2020-04-13 07:14 | RADIOLOGY REPORT (SQ) ---
EXAM: HAND RIGHT 3 VIEWS CLINICAL DATA: 29 years Female PAIN TECHNICAL DATA: Three x-ray views of the right hand were performed on 04/13/2020 at 6:46 AM. COMPARISONS: None FINDINGS: There is no evidence of fracture or dislocation. There is no significant arthritis or degenerative change. No focal lytic or sclerotic bone lesions are seen. Bone mineralization is normal. No acute soft tissue abnormalities are identified. IMPRESSION: No evidence of acute osseous injury involving the right hand.
[2020-04-13 07:19] LABS: APPEARANCE,URINE CLEAR; BILIRUBIN,URINE NEGATIVE (NEGATIVE); GLUCOSE, URINE NEGATIVE (NEGATIVE); KETONES,URINE NEGATIVE (NEGATIVE); LEUKOCYTE ESTERASE,URINE NEGATIVE (NEGATIVE); NITRITE,URINE POSITIVE (NEGATIVE); PROTEIN,URINE 100 mg/dL (NEGATIVE); UROBILINOGEN,URINE NEGATIVE mg/dL (<2.0)
[2020-04-13 07:20] LABS: COLOR,URINE BROWN
[2020-04-13 07:29] LABS: URINE AMPHETAMINES SCREEN NEGATIVE; URINE BARBITURATES SCREEN NEGATIVE; URINE BENZODIAZEPINES SCREEN NEGATIVE; URINE COCAINE SCREEN NEGATIVE; URINE MARIJUANA (THC) SCREEN NEGATIVE; URINE METHADONE SCREEN NEGATIVE; URINE PHENCYCLIDINE SCREEN NEGATIVE
[2020-04-13] MEDS ORDERED: LIDOCAINE 1% INJ-PF (10 MG/ML) 30 ML SDV INJ ONE (13:24)
[2020-04-13] MEDS ORDERED: CEFTRIAXONE INJ 250 MG VIAL IM ONE (13:24)
--- NOTE | 2020-04-13 13:27 | ER Document Report ---
ED Psych Disorder / Suicide - General Chief Complaint: ETOH Abuse Stated Complaint: PSYCH Time Seen by Provider: 04/12/20 21:31 Primary Care Provider: [facility] [Outside] - Follow up as needed [facility] [Outside] - Follow up as needed Mode of Arrival: Medic Notes: PHYSICAL EXAMINATION: GENERAL: Appears well, healthy, well-nourished, no acute distress. LUNGS: Equal breath sounds bilaterally and clear to auscultation. No wheezes rales or rhonchi. CARDIOVASCULAR: S1-S2, regular rate, regular rhythm. Radial pulses 2+, normal. ABDOMEN: Normoactive bowel sounds. Soft, nontender, no guarding, no rebound tenderness, and no masses palpated. PSYCH: Normal mood, normal affect. TRAVEL OUTSIDE OF THE [place] IN LAST 30 DAYS: No - Related Data Allergies/Adverse Reactions: promethazine [From Phenergan] Adverse Reaction (Verified 03/31/20 17:57) Past Medical History - General Information source: Law Enforcement - Social History Smoking Status: Unknown if Ever Smoked Family History: Reviewed & Not Pertinent Renal/ Medical History: Reports: Hx Ectopic . Denies: Hx Peritoneal Dialysis Past Surgical History: Reports: Hx Appendectomy, Hx Gynecologic Surgery - Removal of ectopic , Hx Tubal Ligation - Immunizations Immunizations up to date: Yes Hx Diphtheria, Pertussis, Tetanus Vaccination: Yes Physical Exam - Vital signs Vitals: Temp Pulse Resp BP Pulse Ox 97.4 F 84 16 116/90 H 100 04/12/20 22:55 04/12/20 22:55 04/12/20 22:55 04/12/20 22:55 04/12/20 22:55 Course - Vital Signs Vital signs: Temp Pulse Resp BP Pulse Ox 98 F 66 18 104/57 L 100 04/13/20 04:13 04/13/20 04:13 04/13/20 04:13 04/13/20 04:13 04/13/20 04:13 - Laboratory Results Result Diagrams: 04/12/20 22:25 04/12/20 22:25 Laboratory Results Interpreted: 04/12/20 04/13/20 22:25 06:22 Chloride 109 H Urine Protein 100 H Urine Blood LARGE H Urine Nitrite POSITIVE H Salicylates < 1.0 L Acetaminophen < 10 L Discharge - Discharge Clinical Impression: Suicidal ideation Alcohol intoxication Qualifiers: Complication of substance-induced condition: with unspecified complication Qualified Code(s): F10.929 - Alcohol use, unspecified with intoxication, unspecified Urinary tract infection Qualifiers: Urinary tract infection type: acute cystitis Hematuria presence: with hematuria Qualified Code(s): N30.01 - Acute cystitis with hematuria Condition: Stable Disposition: HOME, SELF-CARE Instructions: Cephalexin ([facility]) Additional Instructions: Your urine shows findings consistent with a urinary tract infection. Please take all the antibiotics as directed even if your symptoms have improved. Please follow-up with your primary care physician as needed. Return to emergency room if you develop fever >101F, persistent vomiting, become lethargic, have severe pain in your sides, or any other symptoms that are concerning to you. You also have COVID-19. Stay in quarantine until the health department releases you from quarantine. You have been evaluated by both medical and behavioral health teams for suicidal ideation and intoxication. You have been deemed appropriate for discharge. While in the emergency department you received the following services/or had access to: Medical screening and assessment, nursing services, dietary services, pharmacological services, one-on-one counseling and/or psychotherapy, environmental services, and continuous observation by a patient plant safety leader. Altered Mental Status (alcohol intoxication) An altered mental status is a change in the normal functioning of the brain. This alteration of function can range from minor decreased brain function with some forgetfulness and confusion to complete loss of consciousness and coma. There are many possible causes of an altered mental status and include brain injuries such as trauma or strokes, problems with oxygen supply to the brain, fever and infections of the brain and/or elsewhere in the body, metabolic abnormalities such as low or high blood sugar, overdoses or excessive medication ingestion, and mental and psychiatric illnesses. Sometimes the altered mental status resolves and a definite cause is not determined. If a cause for your altered mental status was found, it has likely been corrected. Your evaluation has not shown any condition that requires that you be admitted to the hospital. It is believed that you are safe to leave and return to your home. If you have a return of your symptoms, you should return for re-evaluation. Suicidal Ideation (while intoxicated) Suicidal ideation is a common medical term for thoughts about suicide, which may be as detailed as a formulated plan, without the suicidal act itself. Although most people who undergo suicidal ideation do not commit suicide, some go on to make suicide attempts. The range of suicidal ideation varies greatly from fleeting to detailed planning, role playing, and unsuccessful attempts. While thoughts about suicide are common, most people do not carry out serious actions to commit suicide. However, based upon your evaluation and discussion with you, we believe you are not currently at risk to act upon your thoughts of suicide. Therefore, you will be discharged home. Follow up care: You are currently not involved in outpatient therapy, but are highly recommended to begin outpatient services. You will benefit from outpatient therapy in which you learn how to identify triggers and learn healthy coping skills. You have been given a community outpatient referral list to include phone numbers for [facility] mobile crisis. If you experience worsening or a significant change in your symptoms, notify the physician immediately, utilize mobile crisis, or return to the Emergency Department at any time for re-evaluation. Dr. Dukes was consulted to care management of this patient; attending physicians in agreement with recommendations and disposition. Prescriptions: Ciprofloxacin HCl [Cipro 500 mg Tablet] 500 mg PO BID #20 tablet Forms: Return to Work Referrals: [facility] [Outside] - Follow up as needed [facility] [Outside] - Follow up as needed
[2020-04-13 14:32] VITALS: BP 85/57
--- NOTE | 2020-04-13 19:02 | PSYCHOLOGICAL NOTE ---
Psych Note - Psych Note Date seen by psych provider: 04/13/20 Time seen by psych provider: 10:21 Psych Note: Reason for Consult: suicidal ideation, alcohol intoxication Consent permissions: None [id number] Patient is a 29 year old female who was admitted to the ED via EMS for suicidal ideations. She denies suicidal and homicidal ideation, plan, and intent. Patient reports she was drinking alcohol with her friends, she took a couple of double shots and cannot recall what took place. She denies attempting suicide or expressing suicidal ideations and instead reports she was trying to walk home. Patient denies history of inpatient hospitalizations. She reports she was taking Zoloft about a year ago, but stopped because it made her feel paranoid. She states she left her and kids about 2 years ago because she was tired of being controlled and is now supposed to get Monday to another man. Checked back in with patient after talking to mother. She states she did not attempt suicide and her mother had her committed after running away from home. She states she does not want to and is not thinking of ending her life. She talks about going back to work on 04.16.2020 and getting Collateral: mother, Lavern, [phone] called mother to obtain collateral Mother reports she tested positive for COVID-19 about 2 weeks ago. Mother reports problems as a teenager and states patient has depression and stuff. Mother reports history of suicide attempts a few years back and states patient has been admitted to a psychiatric hospital 5 times in the past; most recent hospitalization about 2 years ago. Mother denies patient currently being on medication or involved in therapy. She denies mental health history. Mother reports after patient is not positive for COVID-19, she told patient she can move in with mother as she is currently living with a friend. Mother is a poor historian, but reports patient was involved with DSS with her kids over 2 years ago and when it was cleared, she lost her apartment and moved to [place], [place], as she had court here. Mother reports moving to [place] about 2 years ago. She states patient gets to visit her kids when she goes to see her mother. Mother states she last spoke to patient yesterday and does not have any safety concerns for patient. 1254 attempted to call patients friend, Zia ([phone]). No answer at time of call and voicemail is not set up. Will try again later. 1255 attempted to call patients friend, Caridad ([phone]). Phone number did no go through at time of call. Will try again later. 1331 spoke to patients roommate, Ted ([phone]), who confirms he will be picking patient up and taking her home. He called back at 1342 that he was out front. Clinician passed note to nurse. Patient was alert and oriented to self, person, place, time and situation. Mood was euphoric with congruent affect. She denies current suicidal and homicidal ideation, plan, and intent. Patient did not appear to be responding to internal stimuli as evidenced by fair eye contact and answering questions appropriately when addressed. Thought processes are linear and organized. Conversational speech was within normal limits for rate, tone and prosody. Intellectual abilities are estimated to be average. Insight, judgment, and impulse control were fair as evidenced by no longer being intoxicated and discussing plans upon discharge. Patient engages appropriately. She demonstrates future forward goal oriented thinking as she talks about going back to work at [employer] on 04.16.2020. Clinical Presentation: suicidal ideations; alcohol intoxication at time of admission IVC Criteria per [place] GS 122C Dangerous to others Within the relevant past the individual No has inflicted or attempted to inflict or threatened to inflict serious bodily harm on another AND No that there is a reasonable probability that this conduct will be repeated. OR No has acted in such a way as to create a substantial risk of serious bodily harm to another AND No that there is a reasonable probability that this conduct will be repeated. OR No has engaged in extreme destruction of property AND NO that there is a reasonable probability that this conduct will be repeated. Previous episodes of dangerousness to others, when applicable, may be considered when determining reasonable probability of future dangerous conduct. Clear, cogent, and convincing evidence that an individual has committed a homicide in the relevant past is prima facie evidence of dangerousness to others. Dangerous to self Within the relevant past the individual has done any of the following: acted in such a way as to show ALL of the following: No The individual would be unable without care, supervision, and the continued assistance of others not otherwise available, to exercise self- control, judgment, and discretion in the conduct of the individual's daily responsibilities and social relations or to satisfy the individual's need for nourishment, personal or medical care, mcc, or self-protection and safety. AND No There is a reasonable probability of the individual suffering serious physical debilitation within the near future unless adequate treatment is given. A showing of behavior that is grossly irrational, of actions that the individual is unable to control, of behavior that is grossly inappropriate to the situation, or of other evidence of severely impaired insight and judgment shall create a prima facie inference that the individual is unable to care for himself or herself. OR Yes has attempted suicide or threatened suicide Passive SI while intoxicated AND No that there is a reasonable probability of suicide unless adequate treatment is given No longer intoxicated; denies current suicidal ideation, plan, and intent; demonstrates future forward goal oriented thinking as she is worried about work on 04.16.2020 (after 14 day quarantine for COVID-19 is over) OR No has mutilated himself or herself or attempted to mutilate himself or herself AND No that there is a reasonable probability of serious self-mutilation unless adequate treatment is given. NOTE: Previous episodes of dangerousness to self, when applicable, may be considered when determining reasonable probability of physical debilitation, suicide, or self-mutilation. Impression\plan: Patient is cleared from psychiatric services. Patient was admitted to the ED intoxicated, with ETOH level of 176, and reportedly expressed suicidal ideations. She was intoxicated and walking down the street and allegedly made a statement about walking into traffic. Patient is no longer intoxicated during time of assessment. She denies current suicidal ideation, plan, and intent. Reports taking multiple shots of liquor last night when she was drunk and walking down the street. States she cannot recall all of what took place. Patient is living with her friend and states she is able to move in with her mother (near where her children live) when her COVID-19 quarantine is over. She is currently positive for COVID-19. Patient has a mental health history and reportedly has Depression. She is not currently involved in outpatient services. Patient was given resources for outpatient therapy and medication management. She was highly recommended to begin outpatient therapy and [facility] was highlighted for a self-pay option. Information for [facility] and [facility] mobile crisis was also given to patient and she was recommended to utilize them if needed. Patient states she lives with a male friend and is planning to go back to his house as she is supposed to be quarantined for COVID-19 until 04.15.2020 or 04.16.2020. She demonstrates future forward goal oriented thinking as she talks about going back to 04.16.2020 at [employer] and reports getting this Monday. Clinician spoke to patients friend and roommate, Ted, at [phone] who agrees to be part of discharge plan. Ted is planning to pick patient up around 1340 and bring her to their home. Dr. Dukes was consulted to care management of this patient; attending physicians in agreement with recommendations and disposition.
--- NOTE | 2020-04-14 22:15 | ER Document Report ---
Doctor's Note Notes: 04/14/20 14:00 PHYSICAL EXAMINATION: GENERAL: Appears well, healthy, well-nourished, no acute distress. LUNGS: Equal breath sounds bilaterally and clear to auscultation. No wheezes rales or rhonchi. CARDIOVASCULAR: S1-S2, regular rate, regular rhythm. Radial pulses 2+, normal. ABDOMEN: Normoactive bowel sounds. Soft, nontender, no guarding, no rebound tenderness, and no masses palpated. PSYCH: Normal mood, normal affect. Patient has nitrates in her urine. Will start the patient on keflex. Mental Health has evaluated the patient. They have cleared her for discharge. Patient denies any suicidal or homicidal ideation. Follow-up precautions were given. Verbal discharge instructions were given to the patient. They verbalized understanding. They are stable for discharge.
== END 2020-04-13 14:32 | disposition home or self-care (01) ==
LOC: ER 21:22
DX: R45.851 Suicidal ideations (principal); F10.929 Alcohol use, unspecified with intoxication, unspecified
CPT/HCPCS: 93005; 99285; 96372; 36415; 80307 ×4; 84703; 85025; 80053; 81001; 73130; 93010; J3490; J2060; J0696